=== PATIENT | female | born 1950 | race Caucasian/White ===

== ENCOUNTER → 2016-04-18 | Outpatient (CLI) | payer MEDICARE ==
--- NOTE | 2016-04-18 14:39 | MR ---
EXAMINATION TYPE: MR angio head wo con DATE OF EXAM: 04/18/2016 10:57 AM COMPARISON: NONE HISTORY: Headaches TECHNIQUE: Time of flight images focusing on the [place] were performed without contrast. FINDINGS: Distal vertebral arteries visualized normal. The basilar artery is unremarkable. Posterior cerebral vasculature appears normal. The internal carotid arteries bifurcate normally into A1 and M1 segments. Ophthalmic arteries appear unremarkable. A posterior left communicating artery is present. An infundibulum appears to be present , normal variant. Tiny right posterior communicating artery is not excluded. The middle cerebral eddi ry branches appear normal. A1 segments are normal. The anterior communicating artery appears to be pa tent. A 2 segments are unremarkable. Middle cerebral artery branches are unremarkable. No aneurysmal dilatation is evident. No suspicious vascular malformation is evident. IMPRESSION: 1. MRA [place] of [place] appears within normal limits.
== END | disposition home or self-care (01) ==
LOC: RADMRIMAIN 10:35
PROVIDERS: ATTEND Psychiatry & Neurology Neurology
DX: R51 Headache (principal)
CPT/HCPCS: 70544

== ENCOUNTER → 2016-04-18 | Outpatient (CLI) | payer MEDICARE ==
[2016-04-18 12:01] LABS: C Reactive Protein <5.0 mg/L (<10.0); Creatine Kinase 184 U/L (30-135)
== END | disposition home or self-care (01) ==
LOC: LABWHC1 11:07
PROVIDERS: ATTEND Psychiatry & Neurology Neurology
DX: A69.20 Lyme disease, unspecified (principal); G35 Multiple sclerosis; M62.838 Other muscle spasm
CPT/HCPCS: 36415; 70544; 82550; 85652; 86140

== ENCOUNTER 2016-06-15 10:30 | Emergency (ER) | payer MEDICARE ==
[2016-06-15 10:38] VITALS: TEMP 96.8
[2016-06-15] MEDS ORDERED: SODIUM CHLORIDE 0.9% 1,000 ML IV STA (10:47)
[2016-06-15] MEDS ORDERED: KETOROLAC 60 MG/2 ML VIAL IVP STA (10:47)
[2016-06-15] MEDS ORDERED: ONDANSETRON 4 MG/2 ML VIAL IVP STA (10:48)
--- NOTE | 2016-06-15 10:51 | ED ---
General Adult HPI - General Chief complaint: Syncope Stated complaint: SYNCOPE, ALTERED Time Seen by Provider: 06/15/16 10:30 Source: patient, RN notes reviewed Mode of arrival: wheelchair Limitations: no limitations - History of Present Illness Initial comments: This is a 66-year-old female with past medical history significant for MS and a case of Lyme disease last year which she was treated for. Patient states last night she was sitting on a couch felt she was given a passout. She called her her walked in the room and she was unconscious but it only lasted a few seconds patient came to was very nauseated went to the bathroom and vomited. Patient went to bed at that time. Patient states she woke up in the middle of night with a headache which progressively gotten worse since then. Patient states this morning she continues to be nauseated and is having diarrhea currently. Patient states her joints ache but she is not having any chest pain difficulty breathing or shortness of breath per patient denies any abdominal pain patient denies any back pain. Patient denies any dysuria hematuria urinary frequency. Patient states she has not had a fever or chills. Patient denies any numbness or weakness patient denies currently any lightheadedness or dizziness. - Related Data Home Medications Medication Instructions Recorded Confirmed Baclofen [Lioresal] 10 mg PO TID 06/15/16 06/15/16 Doxycycline Hyclate 100 mg PO DAILY 06/15/16 06/15/16 Gabapentin [Neurontin] 100 mg PO TID 06/15/16 06/15/16 Glatiramer Acetate [Copaxone] 40 mg SQ MOWEFR 06/15/16 06/15/16 Simvastatin [Zocor] 20 mg PO HS 06/15/16 06/15/16 Venlafaxine HCl ER [Effexor XR] 75 mg PO DAILY 06/15/16 06/15/16 amLODIPine BESYLATE [Norvasc] 2.5 mg PO DAILY PRN 06/15/16 06/15/16 Allergies Allergy/AdvReac Type Severity Reaction Status Date / Time No Known Allergies Allergy Verified 06/15/16 12:34 Review of Systems ROS Statement: Those systems with pertinent positive or pertinent negative responses have been documented in the HPI. ROS Other: All systems not noted in ROS Statement are negative. Past Medical History Additional Past Medical History / Comment(s): lyme disease, ms History of Any Multi-Drug Resistant Organisms: None Reported Past Surgical History: No Surgical Hx Reported Past Psychological History: Depression Smoking Status: Current every day smoker Past Alcohol Use History: None Reported Past Drug Use History: None Reported General Exam - General Exam Comments Initial Comments: GENERAL: Patient is well-developed and well-nourished. Patient is nontoxic and well- hydrated and is in mild distress. ENT: Neck is soft and supple. No significant lymphadenopathy is noted. Oropharynx is clear. Moist mucous membranes. Neck has full range of motion without eliciting any pain. EYES: The sclera were anicteric and conjunctiva were pink and moist. Extraocular movements were intact and pupils were equal round and reactive to light. Eyelids were unremarkable. PULMONARY: Unlabored respirations. Good breath sounds bilaterally. No audible rales rhonchi or wheezing was noted. CARDIOVASCULAR: There is a regular rate and rhythm without any murmurs gallops or rubs. ABDOMEN: Soft and nontender with normal bowel sounds. No palpable organomegaly was noted. There is no palpable pulsatile mass. SKIN: Skin is clear with no lesions or rashes and otherwise unremarkable. NEUROLOGIC: Patient is alert and oriented x3. Cranial nerves II through XII are grossly intact. Motor and sensory are also intact. Normal speech, volume and content. Symmetrical smile. MUSCULOSKELETAL: Normal extremities with adequate strength and full range of motion. No lower extremity swelling or edema. No calf tenderness. LYMPHATICS: No significant lymphadenopathy is noted PSYCHIATRIC: Normal psychiatric evaluation. Normal interpersonal interactions appears functionally intact in deals appropriately with others. No signs of depression. No signs of anxiety. N Limitations: no limitations Course Vital Signs 06/15/16 06/15/16 10:33 11:38 Temperature 96.8 F L Pulse Rate 81 71 Respiratory 20 14 Rate Blood Pressure 130/58 136/63 O2 Sat by Pulse 99 97 Oximetry Medical Decision Making - Medical Decision Making EKG shows normal sinus rhythm at 73 bpm IN interval is 154 QRS is 80 QT interval is 394 QTC is 434. Patient's EKG shows no ST segment elevation or depression or T wave abnormalities are noted. One pack and reevaluate the patient she stated her headache was still there but much improved. Patient states she no longer was nauseated and has not had any diarrhea while in the emergency department. Patient received a liter of fluid while in the emergency department. - Lab Data Result diagrams: 06/15/16 11:00 06/15/16 11:00 Lab Results 06/15/16 06/15/16 06/15/16 Range/Units 11:00 11:00 11:00 WBC 9.0 (3.8-10.6) k/uL RBC 4.07 (3.80-5.40) m/uL Hgb 13.4 (11.4-16.0) gm/dL Hct 39.9 (34.0-46.0) % MCV 98.0 (80.0-100.0) fL MCH 32.9 (25.0-35.0) pg MCHC 33.5 (31.0-37.0) g/dL RDW 12.7 (11.5-15.5) % Plt Count 310 (150-450) k/uL Neutrophils % 77 % Lymphocytes % 13 % Monocytes % 6 % Eosinophils % 1 % Basophils % 1 % Neutrophils # 6.9 (1.3-7.7) k/uL Lymphocytes # 1.2 (1.0-4.8) k/uL Monocytes # 0.5 (0-1.0) k/uL Eosinophils # 0.1 (0-0.7) k/uL Basophils # 0.1 (0-0.2) k/uL PT (9.0-12.0) sec INR (<1.1) APTT (22.0-30.0) sec Sodium 142 (137-145) mmol/L Potassium 4.8 (3.5-5.1) mmol/L Chloride 104 (98-107) mmol/L Carbon Dioxide 28 (22-30) mmol/L Anion Gap 10 mmol/L BUN 13 (7-17) mg/dL Creatinine 0.90 (0.52-1.04) mg/dL Est GFR (MDRD) Af Amer >60 (>60 ml/min/1.73 sqM) Est GFR (MDRD) Non-Af >60 (>60 ml/min/1.73 sqM) Glucose 102 H (74-99) mg/dL Calcium 10.0 (8.4-10.2) mg/dL Magnesium 2.2 (1.6-2.3) mg/dL Total Bilirubin 0.6 (0.2-1.3) mg/dL AST 41 H (14-36) U/L ALT 35 (9-52) U/L Alkaline Phosphatase 87 (38-126) U/L Total Creatine Kinase 175 H (30-135) U/L CK-MB (CK-2) 1.3 (0.0-2.4) ng/mL CK-MB (CK-2) Rel Index 0.7 Troponin I <0.012 (0.000-0.034) ng/mL Total Protein 7.8 (6.3-8.2) g/dL Albumin 4.6 (3.5-5.0) g/dL Amylase 58 (30-110) U/L Lipase 81 (23-300) U/L 06/15/16 Range/Units 11:00 WBC (3.8-10.6) k/uL RBC (3.80-5.40) m/uL Hgb (11.4-16.0) gm/dL Hct (34.0-46.0) % MCV (80.0-100.0) fL MCH (25.0-35.0) pg MCHC (31.0-37.0) g/dL RDW (11.5-15.5) % Plt Count (150-450) k/uL Neutrophils % % Lymphocytes % % Monocytes % % Eosinophils % % Basophils % % Neutrophils # (1.3-7.7) k/uL Lymphocytes # (1.0-4.8) k/uL Monocytes # (0-1.0) k/uL Eosinophils # (0-0.7) k/uL Basophils # (0-0.2) k/uL PT 11.1 (9.0-12.0) sec INR 1.1 (<1.1) APTT 24.3 (22.0-30.0) sec Sodium (137-145) mmol/L Potassium (3.5-5.1) mmol/L Chloride (98-107) mmol/L Carbon Dioxide (22-30) mmol/L Anion Gap mmol/L BUN (7-17) mg/dL Creatinine (0.52-1.04) mg/dL Est GFR (MDRD) Af Amer (>60 ml/min/1.73 sqM) Est GFR (MDRD) Non-Af (>60 ml/min/1.73 sqM) Glucose (74-99) mg/dL Calcium (8.4-10.2) mg/dL Magnesium (1.6-2.3) mg/dL Total Bilirubin (0.2-1.3) mg/dL AST (14-36) U/L ALT (9-52) U/L Alkaline Phosphatase (38-126) U/L Total Creatine Kinase (30-135) U/L CK-MB (CK-2) (0.0-2.4) ng/mL CK-MB (CK-2) Rel Index Troponin I (0.000-0.034) ng/mL Total Protein (6.3-8.2) g/dL Albumin (3.5-5.0) g/dL Amylase (30-110) U/L Lipase (23-300) U/L Disposition Clinical Impression: Gastroenteritis Disposition: HOME SELF-CARE Condition: Good Instructions: Gastroenteritis (ED) Referrals: Reyna Browning DO [Primary Care Provider] - 1-2 days Time of Disposition: 13:01
[2016-06-15 11:26] LABS: Basophils # (A) 0.1 k/uL (0-0.2); Basophils % (A) 1 %; CH 32.8; CHCM 33.6; Eosinophils # (A) 0.1 k/uL (0-0.7); Eosinophils % (A) 1 %; HCT 39.9 % (34.0-46.0); HDW 2.28; HGB 13.4 gm/dL (11.4-16.0); Luc % (Auto) 2; Lymphocytes # (A) 1.2 k/uL (1.0-4.8); Lymphocytes % (A) 13 %; MCH 32.9 pg (25.0-35.0); MCHC 33.5 g/dL (31.0-37.0); Monocytes # (A) 0.5 k/uL (0-1.0); Monocytes % (A) 6 %; Neutrophils # (A) 6.9 k/uL (1.3-7.7); Neutrophils % (A) 77 %; RBC 4.07 m/uL (3.80-5.40); RDW 12.7 % (11.5-15.5); WBC (Perox) 9.25
[2016-06-15 11:36] LABS: INR 1.1 (<1.1); Partial Thromboplastin Time 24.3 sec (22.0-30.0); Prothrombin Time 11.1 sec (9.0-12.0)
--- NOTE | 2016-06-15 11:40 | CT ---
EXAMINATION TYPE: CT brain wo con DATE OF EXAM: 06/15/2016 11:35 AM COMPARISON: MRA brain 04/18/2016 INDICATION: Syncope DLP: 956 mGycm, Automated exposure control for dose reduction was used. CONTRAST: None CT of the brain is performed utilizing 3 mm thick sections through the posterior fossa and 3 mm thick sections through the remaining calvarium. Study is performed within 24 hours of arrival to the hosp [facility]. No abnormal hyperdensity is present to suggest an acute intracranial hemorrhage. No mass lesion is evident. No acute infarcts are evident. Ventricles and sulci are appropriate for the patient age. Paranasal sinuses and mastoid air cells within the [id number] are clear. IMPRESSIONS: 1. No acute intracranial changes.
[2016-06-15 11:41] LABS: ALT 35 U/L (9-52); AST 41 U/L (14-36); Alkaline Phosphatase 87 U/L (38-126); Amylase 58 U/L (30-110); Anion Gap 10 mmol/L; Blood Urea Nitrogen 13 mg/dL (7-17); Carbon Dioxide 28 mmol/L (22-30); Chloride 104 mmol/L (98-107); Glucose 102 mg/dL (74-99); Magnesium 2.2 mg/dL (1.6-2.3); Non-African American GFR(MDRD) >60 (>60 ml/min/1.73 sqM); Potassium 4.8 mmol/L (3.5-5.1); Sodium 142 mmol/L (137-145); Total Bilirubin 0.6 mg/dL (0.2-1.3); Total Protein 7.8 g/dL (6.3-8.2)
[2016-06-15 11:46] LABS: Creatine Kinase 175 U/L (30-135)
[2016-06-15 11:57] VITALS: RESP 14
[2016-06-15 11:59] LABS: Creatine Kinase MB 1.3 ng/mL (0.0-2.4); Troponin I <0.012 ng/mL (0.000-0.034)
--- NOTE | 2016-06-15 12:44 | XR ---
EXAMINATION TYPE: XR chest 2V DATE OF EXAM: 06/15/2016 11:44 AM COMPARISON: EXAMINATION TYPE: XR chest 2V DATE OF EXAM: 06/15/2016 11:44 AM COMPARISON: NONE INDICATION: Chest pain nausea TECHNIQUE: Frontal and lateral views of the chest are obtained. FINDINGS: The heart size is normal. The pulmonary vasculature is normal. The lungs are clear. IMPRESSION: 1. No acute pulmonary process. INDICATION: TECHNIQUE: Single frontal view of the chest is obtained. FINDINGS: The heart size is normal. The pulmonary vasculature is normal. The lungs are clear.
[2016-06-15] MEDS ORDERED: ONDANSETRON 4 MG ODT STARTER PACK 2 TAB BTL PO STA (13:01)
[2016-06-15 13:15] VITALS: BP 142/84; PULSE 82
== END 2016-06-15 13:17 | disposition home or self-care (01) ==
LOC: EC 10:30
DX: K52.9 Noninfective gastroenteritis and colitis, unspecified (principal); R55 Syncope and collapse; R51 Headache; G35 Multiple sclerosis; F32.9 Major depressive disorder, single episode, unspecified; F17.200 Nicotine dependence, unspecified, uncomplicated; Z79.899 Other long term (current) drug therapy
CPT/HCPCS: 36415; 93005; 80053; 82150; 82550; 82553; 83690; 83735; 84484; 85025; 85610; 85730; 71020; 70450; 99284; 96374; 96375; 96361; J2405; J1885; S0119

== ENCOUNTER → 2016-08-30 | Outpatient (CLI) | payer MEDICARE ==
[2016-08-30 10:48] LABS: Blood Urea Nitrogen 13 mg/dL (7-17); Non-African American GFR(MDRD) >60 (>60 ml/min/1.73 sqM)
== END | disposition home or self-care (01) ==
LOC: LABWHC1 09:51
PROVIDERS: ATTEND Physical Medicine & Rehabilitation
DX: M54.17 Radiculopathy, lumbosacral region (principal); M54.5 Low back pain
CPT/HCPCS: 36415; 82565; 84520

== ENCOUNTER → 2016-09-05 | Outpatient (CLI) | payer MEDICARE ==
[2016-09-05 16:59] LABS: Basophils # (A) 0.1 k/uL (0-0.2); Basophils % (A) 1 %; CH 32.6; CHCM 32.9; Eosinophils # (A) 0.2 k/uL (0-0.7); Eosinophils % (A) 2 %; HCT 39.4 % (34.0-46.0); HDW 2.15; HGB 12.9 gm/dL (11.4-16.0); Luc # (Auto) 0.24; Luc % (Auto) 3; Lymphocytes # (A) 2.6 k/uL (1.0-4.8); Lymphocytes % (A) 28 %; MCH 32.7 pg (25.0-35.0); MCHC 32.8 g/dL (31.0-37.0); MCV 99.7 fL (80.0-100.0); Mean Platelet Volume 7.3; Monocytes # (A) 0.6 k/uL (0-1.0); Monocytes % (A) 7 %; Neutrophils # (A) 5.4 k/uL (1.3-7.7); Neutrophils % (A) 60 %; RBC 3.95 m/uL (3.80-5.40); RDW 12.7 % (11.5-15.5); WBC 9.1 k/uL (3.8-10.6); WBC (Perox) 9.45
[2016-09-05 17:38] LABS: ALT 34 U/L (9-52); AST 42 U/L (14-36); Alkaline Phosphatase 91 U/L (38-126); Anion Gap 10 mmol/L; Blood Urea Nitrogen 13 mg/dL (7-17); Carbon Dioxide 27 mmol/L (22-30); Chloride 104 mmol/L (98-107); Glucose 90 mg/dL (74-99); Non-African American GFR(MDRD) >60 (>60 ml/min/1.73 sqM); Potassium 5.2 mmol/L (3.5-5.1); Sodium 141 mmol/L (137-145); Total Bilirubin 0.3 mg/dL (0.2-1.3); Total Protein 7.6 g/dL (6.3-8.2)
[2016-09-06 07:24] LABS: Mis test requested (Blood) B. burgdorferi IgG/M
== END ==
LOC: LABWHC1 16:18
PROVIDERS: ATTEND Internal Medicine Infectious Disease
DX: A69.20 Lyme disease, unspecified (principal)
CPT/HCPCS: 36415; 80053; 85025; 86617; 86618

== ENCOUNTER → 2016-09-19 | Outpatient (CLI) | payer MEDICARE ==
[2016-09-19 12:17] LABS: ALT 43 U/L (9-52); AST 48 U/L (14-36); Alkaline Phosphatase 92 U/L (38-126); Anion Gap 12 mmol/L; Blood Urea Nitrogen 13 mg/dL (7-17); Calcium 9.9 mg/dL (8.4-10.2); Carbon Dioxide 25 mmol/L (22-30); Chloride 106 mmol/L (98-107); Glucose 96 mg/dL (74-99); Non-African American GFR(MDRD) >60 (>60 ml/min/1.73 sqM); Potassium 5.1 mmol/L (3.5-5.1); Sodium 143 mmol/L (137-145); Total Bilirubin 0.6 mg/dL (0.2-1.3)
[2016-09-24 16:03] LABS: Mis test requested (Blood) Lyme Ab IgG/ IgM IB
== END | disposition home or self-care (01) ==
LOC: LABWHC1 11:04
PROVIDERS: ATTEND Family Medicine
DX: E87.5 Hyperkalemia (principal)
CPT/HCPCS: 36415; 80053; 86617

== ENCOUNTER 2016-10-24 08:49 | Inpatient (IN) | payer MEDICARE ==
[2016-10-24] MEDS ORDERED: ONDANSETRON 4 MG/2 ML VIAL IVP STA (09:07)
[2016-10-24] MEDS ORDERED: SODIUM CHLORIDE 0.9% 1,000 ML IV STA ×2 (09:07)
[2016-10-24] MEDS ORDERED: PANTOPRAZOLE 40 MG/10 ML VIAL IVP STA (09:07)
[2016-10-24] MEDS ORDERED: MAG HYDROX/AL HYDROX/SIMETH 30 ML, HYOSCYAMINE ELIXIR 10 ML, CIMETIDINE HCL 300 MG PO STA ×3 (09:09)
--- NOTE | 2016-10-24 09:12 | ED ---
Abdominal Pain HPI <Senthil Hidalgo - Last Filed: 10/24/16 12:45> - General Source: patient, RN notes reviewed, old records reviewed Mode of arrival: wheelchair Limitations: no limitations <Rosalinda Henao - Last Filed: 10/24/16 23:51> - General Chief Complaint: Abdominal Pain Stated Complaint: abdominal burning/pain Time Seen by Provider: 10/24/16 08:56 - History of Present Illness Initial Comments: This is a pleasant 66 show female presenting to emergency department with chief complaint of diarrhea and burning abdominal pain for the past 2 days. Patient reports that she was diagnosed with Lyme disease and was placed on cefuroxime by Dr. Bowman. Patient reports that she's been taking it for the past 2 weeks. She states that on Friday and Friday she started noticed the diarrhea and the burning pain. Patient reports she feels nauseated and tried to vomit this morning. She reports that she has not been able to relieve anything that she has diffuse diarrhea shortly after. Patient states that she feels very weak. She also has a history of MS. Patient reports that she's had no history of abdominal surgeries. She states that the abdominal pain will occasionally radiate towards her back. Report she's had a C. diff in the past and feels like her diarrhea symptoms are similar to previous diagnosis of C. diff.Patient denies any recent fever, chills, shortness of breath, chest pain, back pain, numbness or tingling, dysuria or hematuria, constipation , headaches or visual changes, or any other current symptoms (Rosalinda Henao) - Related Data Home Medications Medication Instructions Recorded Confirmed Gabapentin [Neurontin] 100 mg PO TID 06/15/16 10/24/16 Glatiramer Acetate [Copaxone] 40 mg SQ MOWEFR 06/15/16 10/24/16 Venlafaxine HCl ER [Effexor XR] 75 mg PO DAILY 06/15/16 10/24/16 Allergies Allergy/AdvReac Type Severity Reaction Status Date / Time cefuroxime AdvReac Diarrhea Verified 10/24/16 09:14 Review of Systems ROS Other: All systems not noted in ROS Statement are negative. <Senthil Hidalgo - Last Filed: 10/24/16 12:45> ROS Other: All systems not noted in ROS Statement are negative. <Rosalinda Henao - Last Filed: 10/24/16 23:51> ROS Statement: Those systems with pertinent positive or pertinent negative responses have been documented in the HPI. Past Medical History Additional Past Medical History / Comment(s): lyme disease, ms History of Any Multi-Drug Resistant Organisms: None Reported Past Surgical History: No Surgical Hx Reported Past Psychological History: Depression Smoking Status: Current every day smoker Past Alcohol Use History: None Reported Past Drug Use History: None Reported <Rosalidna Henao - Last Filed: 10/24/16 23:51> General Exam <Senthil Hidalgo - Last Filed: 10/24/16 12:45> Limitations: no limitations General appearance: alert, in no apparent distress Head exam: Present: atraumatic, normocephalic, normal inspection Eye exam: Present: normal appearance, PERRL, EOMI. Absent: scleral icterus, conjunctival injection, periorbital swelling ENT exam: Present: normal exam, mucous membranes moist Neck exam: Present: normal inspection. Absent: tenderness, meningismus, lymphadenopathy Respiratory exam: Present: normal lung sounds bilaterally. Absent: respiratory distress, wheezes, rales, rhonchi, stridor Cardiovascular Exam: Present: regular rate, normal rhythm, normal heart sounds. Absent: systolic murmur, diastolic murmur, rubs, gallop, clicks GI/Abdominal exam: Present: soft, tenderness (Diffuse lower abdominal tenderness.), normal bowel sounds, other (Patient reports that burning sensation will occasionally radiate towards her back.). Absent: distended, guarding, rebound, rigid Extremities exam: Present: normal inspection, full ROM, normal capillary refill. Absent: tenderness, pedal edema, joint swelling, calf tenderness Back exam: Present: normal inspection, full ROM. Absent: CVA tenderness (R), CVA tenderness (L) Neurological exam: Present: alert, oriented X3, CN II-XII intact Psychiatric exam: Present: normal affect, normal mood Skin exam: Present: warm, dry, intact, normal color. Absent: rash <Rosalinda Henao - Last Filed: 10/24/16 23:51> - General Exam Comments Initial Comments: This is a 66-year-old female. Patient appears fatigued. (Rosalinda Henao) Course <Senthil Hidalgo - Last Filed: 10/24/16 12:45> <Rosalinda Henao - Last Filed: 10/24/16 23:51> Vital Signs 10/24/16 10/24/16 10/24/16 08:53 11:44 13:02 Temperature 98.1 F 98 F 99.2 F Pulse Rate 94 83 89 Respiratory 20 18 14 Rate Blood Pressure 115/59 117/55 100/53 O2 Sat by Pulse 99 100 100 Oximetry - Reevaluation(s) Reevaluation #1: 10/24/16 12:45 Procedure [id number] evaluation the patient did discuss the findings with the patient and family. Patient's abdomen is soft with some tenderness but improved from her original presentation. I did discuss the case with Dr. Alves. Patient will be admitted. (Senthil Hidalgo) Medical Decision Making - Lab Data Result diagrams: 10/24/16 09:02 10/24/16 09:02 <Senthil Hidalgo - Last Filed: 10/24/16 12:45> - Lab Data Result diagrams: 10/24/16 09:02 10/24/16 09:02 - Radiology Data Radiology results: report reviewed <Rosalinda Henao - Last Filed: 10/24/16 23:51> - Medical Decision Making This is a pleasant 66 show female presenting to emergency department with chief complaint of diarrhea and burning abdominal pain for the past 2 days. Patient reports that she was diagnosed with Lyme disease and was placed on cefuroxime by Dr. Bowman. Patient reports that she's been taking it for the past 2 weeks. She states that on Friday and Friday she started noticed the diarrhea and the burning pain. Patient reports she feels nauseated and tried to vomit this morning. She reports that she has not been able to relieve anything that she has diffuse diarrhea shortly after. Patient received IV fluids, and labs are drawn. Currently differential diagnosis is acute exacerbation of C. difficile infection or gastric or duodenal ulcer disease. Patient was given Protonix, GI cocktail, and IV hydration. [place] white count is elevated 20,000. CT abdomen and pelvis was obtained. Evidence of significant pancolitis seen a member next colitis. Currently pending C. diff. Patient is given by mouth Flagyl and IV hydration. Discussed the findings with the patient and Dr. Hidalgo. This time will be admitting the patient for by mouth Flagyl and also started on Levaquin. Anabiotic tracing be depending on stool findings. (Rosalinda Henao) - Lab Data Lab Results 10/24/16 10/24/16 10/24/16 Range/Units 09:02 09:02 09:02 WBC 20.9 H (3.8-10.6) k/uL RBC 4.08 (3.80-5.40) m/uL Hgb 13.5 (11.4-16.0) gm/dL Hct 39.2 (34.0-46.0) % MCV 96.0 (80.0-100.0) fL MCH 33.0 (25.0-35.0) pg MCHC 34.3 (31.0-37.0) g/dL RDW 12.3 (11.5-15.5) % Plt Count 314 (150-450) k/uL Neutrophils % 88 % Lymphocytes % 5 % Monocytes % 6 % Eosinophils % 1 % Basophils % 0 % Neutrophils # 18.5 H (1.3-7.7) k/uL Lymphocytes # 1.0 (1.0-4.8) k/uL Monocytes # 1.1 H (0-1.0) k/uL Eosinophils # 0.2 (0-0.7) k/uL Basophils # 0.0 (0-0.2) k/uL PT 10.5 (9.0-12.0) sec INR 1.0 (<1.1) APTT 24.0 (22.0-30.0) sec Sodium 141 (137-145) mmol/L Potassium 3.9 (3.5-5.1) mmol/L Chloride 106 (98-107) mmol/L Carbon Dioxide 25 (22-30) mmol/L Anion Gap 10 mmol/L BUN 9 (7-17) mg/dL Creatinine 0.78 (0.52-1.04) mg/dL Est GFR (MDRD) Af Amer >60 (>60 ml/min/1.73 sqM) Est GFR (MDRD) Non-Af >60 (>60 ml/min/1.73 sqM) Glucose 108 H (74-99) mg/dL Plasma Lactic Acid [place] (0.7-2.0) mmol/L Calcium 9.2 (8.4-10.2) mg/dL Total Bilirubin 0.6 (0.2-1.3) mg/dL AST 36 (14-36) U/L ALT 39 (9-52) U/L Alkaline Phosphatase 98 (38-126) U/L Total Protein 7.0 (6.3-8.2) g/dL Albumin 4.2 (3.5-5.0) g/dL Amylase <30 L (30-110) U/L Lipase 48 (23-300) U/L Urine Color Urine Appearance (Clear) Urine pH (5.0-8.0) Ur Specific [place] (1.001-1.035) Urine Protein (Negative) Urine Glucose (UA) (Negative) Urine Ketones (Negative) Urine Blood (Negative) Urine Nitrite (Negative) Urine Bilirubin (Negative) Urine Urobilinogen (<2.0) mg/dL Ur Leukocyte Esterase (Negative) Urine RBC (0-5) /hpf Ur Squamous Epith Cells (0-4) /hpf Urine Mucus (None) /hpf C. difficile (EIA) Intrp (Negative) 10/24/16 10/24/16 10/24/16 Range/Units 09:02 10:38 10:40 WBC (3.8-10.6) k/uL RBC (3.80-5.40) m/uL Hgb (11.4-16.0) gm/dL Hct (34.0-46.0) % MCV (80.0-100.0) fL MCH (25.0-35.0) pg MCHC (31.0-37.0) g/dL RDW (11.5-15.5) % Plt Count (150-450) k/uL Neutrophils % % Lymphocytes % % Monocytes % % Eosinophils % % Basophils % % Neutrophils # (1.3-7.7) k/uL Lymphocytes # (1.0-4.8) k/uL Monocytes # (0-1.0) k/uL Eosinophils # (0-0.7) k/uL Basophils # (0-0.2) k/uL PT (9.0-12.0) sec INR (<1.1) APTT (22.0-30.0) sec Sodium (137-145) mmol/L Potassium (3.5-5.1) mmol/L Chloride (98-107) mmol/L Carbon Dioxide (22-30) mmol/L Anion Gap mmol/L BUN (7-17) mg/dL Creatinine (0.52-1.04) mg/dL Est GFR (MDRD) Af Amer (>60 ml/min/1.73 sqM) Est GFR (MDRD) Non-Af (>60 ml/min/1.73 sqM) Glucose (74-99) mg/dL Plasma Lactic Acid [place] 1.0 (0.7-2.0) mmol/L Calcium (8.4-10.2) mg/dL Total Bilirubin (0.2-1.3) mg/dL AST (14-36) U/L ALT (9-52) U/L Alkaline Phosphatase (38-126) U/L Total Protein (6.3-8.2) g/dL Albumin (3.5-5.0) g/dL Amylase (30-110) U/L Lipase (23-300) U/L Urine Color Yellow Urine Appearance Clear (Clear) Urine pH 6.0 (5.0-8.0) Ur Specific [place] >1.050 H (1.001-1.035) Urine Protein Trace H (Negative) Urine Glucose (UA) Negative (Negative) Urine Ketones Negative (Negative) Urine Blood Moderate H (Negative) Urine Nitrite Negative (Negative) Urine Bilirubin Negative (Negative) Urine Urobilinogen <2.0 (<2.0) mg/dL Ur Leukocyte Esterase Negative (Negative) Urine RBC 47 H (0-5) /hpf Ur Squamous Epith Cells 1 (0-4) /hpf Urine Mucus Rare H (None) /hpf C. difficile (EIA) Intrp Positive A (Negative) - Radiology Data Moderate to severe pancolitis with inflammatory or infectious etiologies the differential including pseudomonas colitis. Moderate circumferential bladder wall thickening. Chronic bladder wall hypertrophy versus cystitis. Small amount of pelvic free fluid likely reactive. (Rosalinda Henao) Disposition <Senthil Hidalgo - Last Filed: 10/24/16 12:45> Time of Disposition: 12:06 <Rosalinda Henao - Last Filed: 10/24/16 23:51> Clinical Impression: Colitis Disposition: ADMITTED IP TO THIS HOSP Condition: Stable
[2016-10-24 09:35] LABS: Basophils % (A) 0 %; CH 32.5; Eosinophils # (A) 0.2 k/uL (0-0.7); Eosinophils % (A) 1 %; HCT 39.2 % (34.0-46.0); HDW 2.25; HGB 13.5 gm/dL (11.4-16.0); Luc # (Auto) 0.16; Luc % (Auto) 1; Lymphocytes % (A) 5 %; MCHC 34.3 g/dL (31.0-37.0); Mean Platelet Volume 7.4; Monocytes # (A) 1.1 k/uL (0-1.0); Monocytes % (A) 6 %; Neutrophils # (A) 18.5 k/uL (1.3-7.7); Neutrophils % (A) 88 %; RBC 4.08 m/uL (3.80-5.40); RDW 12.3 % (11.5-15.5); WBC 20.9 k/uL (3.8-10.6); WBC (Perox) 21.11
--- NOTE | 2016-10-24 09:48 | XR ---
EXAMINATION TYPE: XR KUB DATE OF EXAM: 10/24/2016 COMPARISON: NONE HISTORY: Abdominal pain and diarrhea TECHNIQUE: One view abdominal series FINDINGS: The osseous structures are intact. The bowel gas pattern is nonspecific. Lung bases are clear. Hype rtrophic and degenerative change of the spine. Arthropathy of the hip joints with findings suggestive of chronic acetabular labral tears. IMPRESSION: 1. Nonspecific abdomen.
[2016-10-24 09:56] LABS: ALT 39 U/L (9-52); AST 36 U/L (14-36); Alkaline Phosphatase 98 U/L (38-126); Amylase <30 U/L (30-110); Anion Gap 10 mmol/L; Blood Urea Nitrogen 9 mg/dL (7-17); Calcium 9.2 mg/dL (8.4-10.2); Carbon Dioxide 25 mmol/L (22-30); Chloride 106 mmol/L (98-107); Glucose 108 mg/dL (74-99); Non-African American GFR(MDRD) >60 (>60 ml/min/1.73 sqM); Potassium 3.9 mmol/L (3.5-5.1); Sodium 141 mmol/L (137-145); Total Bilirubin 0.6 mg/dL (0.2-1.3)
[2016-10-24 09:57] LABS: Prothrombin Time 10.5 sec (9.0-12.0)
[2016-10-24] MEDS ORDERED: RX INFO: IV CONTRAST WAS GIVEN 1 EACH MISC MISCELLANE PRN (10:23)
--- NOTE | 2016-10-24 11:16 | CT ---
EXAMINATION TYPE: CT abdomen pelvis w con DATE OF EXAM: 10/24/2016 COMPARISON: 08/30/2009 HISTORY: 66-year-old female with pelvic pain and diarrhea TECHNIQUE: Contiguous axial scanning of the abdomen and pelvis following administration of 100 ml Omn ipaque 300 IV contrast. Delayed images through the kidneys and coronal/sagittal reconstructions perf ormed. CT DLP: 371.3 mGycm Automated exposure control for dose reduction was used. FINDINGS: The heart is normal size without pericardial effusion. Some strandy atelectasis at the peripheral lef t base. No pleural effusion. No focal liver lesion or biliary ductal dilatation. Portal venous system is patent. Gallbladder, adrenal glands, kidneys, spleen, and pancreas show no gross abnormality. Prominent fluid-filled small bowel loops within the lower abdomen and pelvis. There is moderate to se rosmery brunson colonic edematous wall thickening and mucosal hyperemia. No dilated small bowel or free air. No mesenteric or retroperitoneal lymphadenopathy seen. Moderate circumferential bladder wall thickening. Uterus is visualized. Ovaries not clearly delineate d. Large paraovarian varices. Small amount of pelvic free fluid. Pelvic phleboliths. Bones: Degenerative changes at the hips and within the lower lumbar spine. No osseous destructive pro cess. IMPRESSION: 1. MODERATE TO SEVERE PANCOLITIS WITH INFLAMMATORY OR INFECTIOUS ETIOLOGIES IN THE DIFFERENTIAL INCLU DING PSEUDOMEMBRANOUS COLITIS. 2. MODERATE CIRCUMFERENTIAL BLADDER WALL THICKENING, CHRONIC BLADDER WALL HYPERTROPHY VERSUS CYSTITIS . CLINICALLY CORRELATE. 3. SMALL AMOUNT OF PELVIC FREE FLUID LIKELY REACTIVE.
[2016-10-24] MEDS ORDERED: metroNIDAZOLE 500 MG TAB PO STA (11:24)
[2016-10-24] MEDS ORDERED: LEVOFLOXACIN 750MG-D5W PMX 750 MG in DEXTROSE/WATER 1 150ML.BAG IVPB STA (11:25)
[2016-10-24] MEDS ORDERED: HYDROmorphone 1 MG/ML 1 ML SYRINGE IV PRN (12:06)
[2016-10-24] MEDS ORDERED: NALOXONE 0.4 MG/ML 1 ML VIAL IV PRN (12:06)
--- NOTE | 2016-10-24 13:31 | P.HPIM ---
History of Present Illness H&P Date: 10/24/16 Chief Complaint: Abdominal pain with diarrhea 2 days This is a 66-year-old female, patient of Dr. Huston. She has a known past medical history of C. diff colitis, multiple sclerosis and nicotine dependence. Patient presents to the emergency room with complaints of burning sensation in the abdomen with diarrhea 2 days. Patient has had multiple loose stools. She reports she's having diarrhea almost every half hour. Patient has had a decrease in appetite. She reports anything that she eats goes right through her. Patient also has been under treatment for Lyme disease with Ceftin that was ordered by Dr. Bowman. Patient has been taking the Ceftin for about 2 weeks. Patient notices that she was not feeling well on Friday and stopped taking the Ceftin. They notified Dr. Bowman. And he agreed that the Ceftin needed to be discontinued. On admission her white count is 20.9 computed tomography scan of the abdomen and pelvis shows moderate to severe pancolitis with inflammatory or infectious etiologies the differential includes pseudomembranous colitis. There is also moderate circumferential bladder wall thickening, chronic bladder wall hypertrophy versus cystitis and a small amount of pelvic free fluid likely reactive. Patient was given 1 dose of Levaquin and Flagyl in the emergency room. Stool for C. diff has been ordered as well as other stool studies and urinalysis. Patient does admit to having some blood present in her stools. Stool for occult blood ordered. Last colonoscopy was in January which she reports was normal. Patient admits to feeling somewhat feverish. She denies any chills or sweats. Denies any vomiting. Admits to nausea. Denies any burning with urination. Denies any chest pain or shortness of breath Review of Systems Please refer to HPI otherwise unremarkable Past Medical History Additional Past Medical History / Comment(s): lyme disease, ms History of Any Multi-Drug Resistant Organisms: None Reported Past Surgical History: No Surgical Hx Reported Past Psychological History: Depression Smoking Status: Current every day smoker Past Alcohol Use History: None Reported Past Drug Use History: None Reported Medications and Allergies Home Medications Medication Instructions Recorded Confirmed Type Gabapentin [Neurontin] 100 mg PO TID 06/15/16 10/24/16 History Glatiramer Acetate [Copaxone] 40 mg SQ MOWEFR 06/15/16 10/24/16 History Venlafaxine HCl ER [Effexor XR] 75 mg PO DAILY 06/15/16 10/24/16 History Allergies Allergy/AdvReac Type Severity Reaction Status Date / Time cefuroxime AdvReac Diarrhea Verified 10/24/16 09:14 Physical Exam Vitals: Vital Signs Temp Pulse Resp BP Pulse Ox 10/24/16 13:02 99.2 F 89 14 100/53 100 10/24/16 11:44 98 F 83 18 117/55 100 10/24/16 08:53 98.1 F 94 20 115/59 99 Intake and Output 10/23/16 10/24/16 10/24/16 22:59 06:59 14:59 Other: Weight 56.699 kg Patient Weight 10/25/16 06:59 Weight 56.699 kg Head normocephalic Neck supple Lungs clear to auscultation bilaterally no wheezing or crackles Heart regular rate and rhythm S1-S2, no rub or gallop Abdomen is soft nontender nondistended positive bowel sounds no hepatosplenomegaly Extremities no edema Neuro alert and orientated to 3 Results CBC & Chem 7: 10/24/16 09:02 10/24/16 09:02 Labs: Abnormal Lab Results - Last 24 Hours (Table) 10/24/16 10/24/16 Range/Units 09:02 09:02 WBC 20.9 H (3.8-10.6) k/uL Neutrophils # 18.5 H (1.3-7.7) k/uL Monocytes # 1.1 H (0-1.0) k/uL Glucose 108 H (74-99) mg/dL Amylase <30 L (30-110) U/L Assessment and Plan Plan: 1. Diarrhea with abdominal discomfort and CAT scan showing moderate to severe pancolitis: Patient did receive 1 dose of IV Levaquin and Flagyl in the emergency room. Awaiting stool study results. Patient was recently on Ceftin which was discontinued on Friday she is being treated for Lyme disease 2. Rectal bleeding likely related to the diarrhea and colitis. Check stool for occult blood. Continue to monitor hemoglobin. Hemoglobin on admission stable at 13.5 3. Lyme disease has been under treatment by Dr. Bowman. Had been on Ceftin for 2 weeks. Ceftin discontinued on Friday due to GI symptoms 4. History of multiple sclerosis 5. Nicotine dependence: Discussed smoking cessation greater than 3 minutes. Add nicotine patch 6. GI prophylaxis Protonix and DVT prophylaxis SCDs Time with Patient: Greater than 30 (Greater than 50% of the total time spent in counseling and coordination of care.I performed an examination of the patient and discussed their management with the physician Geography Instructor. I have reviewed the Physician Geography Instructor's notes and agree with the documented findings and plan of care)
[2016-10-24 13:44] LABS: Appearance,Urine Clear (Clear); Bilirubin,Urine Negative (Negative); Glucose,Urine (UA) Negative (Negative); Ketones,Urine Negative (Negative); Leukocyte Esterase,Urine Negative (Negative); Mucus,Urine Rare /hpf; Nitrite,Urine Negative (Negative); Particle Count 1846; Protein,Urine Trace (Negative); RBC,Urine 47 /hpf (0-5); Squamous Epithelial Cell,Urine 1 /hpf (0-4); UA Billing (MACRO vs. MICRO) MICRO; Urobilinogen,Urine <2.0 mg/dL (<2.0)
[2016-10-24 13:48] LABS: Specific Gravity,Urine >1.050 (1.001-1.035)
[2016-10-24 14:20] VITALS: BMI 21.2
[2016-10-24] MEDS: NICOTINE 21MG/24HR PATCH TRANSDERM SCH (14:22)
[2016-10-24] MEDS: SODIUM CHLORIDE 0.9% 1,000 ML IV SCH ×2 (14:23→20:35)
[2016-10-24] MEDS: CHERRY FLAVOR 60 ML BOTTLE PO SCH ×3 (17:02→23:16)
[2016-10-24] MEDS: VANCOMYCIN ORAL SOLUTION 250 MG/5 ML BOTTLE PO SCH ×3 (17:02→23:17)
[2016-10-24] MEDS: GABAPENTIN 100 MG CAP PO SCH ×2 (17:03→21:14)
[2016-10-24] MEDS: ONDANSETRON 4 MG/2 ML VIAL IVP PRN (17:07)
[2016-10-24 22:57] VITALS: RESP 16
[2016-10-25] MEDS: ONDANSETRON 4 MG/2 ML VIAL IVP PRN ×2 (01:14→08:40)
[2016-10-25] MEDS: VANCOMYCIN ORAL SOLUTION 250 MG/5 ML BOTTLE PO SCH ×2 (05:25→12:56)
[2016-10-25] MEDS: CHERRY FLAVOR 60 ML BOTTLE PO SCH ×2 (05:25→12:57)
[2016-10-25] MEDS: SODIUM CHLORIDE 0.9% 1,000 ML IV SCH ×2 (05:25→12:58)
[2016-10-25 07:27] VITALS: BP 99/55; PULSE 81; TEMP 99.2
[2016-10-25 08:07] LABS: Basophils # (A) 0.1 k/uL (0-0.2); Basophils % (A) 1 %; CH 32.1; CHCM 33.3; Eosinophils # (A) 0.1 k/uL (0-0.7); Eosinophils % (A) 1 %; HCT 33.3 % (34.0-46.0); HGB 10.8 gm/dL (11.4-16.0); Luc % (Auto) 3; Lymphocytes # (A) 1.2 k/uL (1.0-4.8); Lymphocytes % (A) 12 %; MCH 31.3 pg (25.0-35.0); MCHC 32.3 g/dL (31.0-37.0); MCV 96.9 fL (80.0-100.0); Mean Platelet Volume 7.3; Monocytes # (A) 1.3 k/uL (0-1.0); Monocytes % (A) 12 %; Neutrophils # (A) 7.6 k/uL (1.3-7.7); Neutrophils % (A) 72 %; RBC 3.44 m/uL (3.80-5.40); RDW 12.4 % (11.5-15.5); WBC 10.6 k/uL (3.8-10.6); WBC (Perox) 11.04
[2016-10-25 08:16] LABS: ALT 32 U/L (9-52); AST 28 U/L (14-36); Alkaline Phosphatase 77 U/L (38-126); Anion Gap 6 mmol/L; Blood Urea Nitrogen 4 mg/dL (7-17); Calcium 8.3 mg/dL (8.4-10.2); Carbon Dioxide 25 mmol/L (22-30); Chloride 109 mmol/L (98-107); Glucose 90 mg/dL (74-99); Non-African American GFR(MDRD) >60 (>60 ml/min/1.73 sqM); Potassium 3.7 mmol/L (3.5-5.1); Sodium 140 mmol/L (137-145); Total Bilirubin 0.2 mg/dL (0.2-1.3); Total Protein 5.3 g/dL (6.3-8.2)
[2016-10-25] MEDS: GABAPENTIN 100 MG CAP PO SCH (08:38)
[2016-10-25] MEDS: NICOTINE 21MG/24HR PATCH TRANSDERM SCH (08:38)
[2016-10-25] MEDS ORDERED: NON-FORMULARY DRUG (Glatiramer Acetate [Copaxone] 40 MG) SQ SCH (09:00)
[2016-10-25] MEDS ORDERED: PANTOPRAZOLE 40 MG/10 ML VIAL IVP SCH (09:00)
[2016-10-25] MEDS ORDERED: VENLAFAXINE HCL ER 75 MG CAP PO SCH (09:00)
--- NOTE | 2016-10-25 13:47 | P.DS ---
Providers Date of admission: 10/24/16 12:51 Expected date of discharge: 10/25/16 Attending physician: Heaven Alves Consults: 10/24/16 14:05 Consult Physician Routine Consulting Provider: Cody De Leon Consult Reason/Comments: c.diff Do you want consulting provider notified?: Yes Primary care physician: Nancy Huston [facility] Course: Diagnoses on discharge : 1. Diarrhea with abdominal discomfort and CAT scan showing moderate to severe pancolitis: Patient did receive 1 dose of IV Levaquin and Flagyl in the emergency room. Subsequently stools check for C Diff was positive, she was given oral Vancomycin 250 mg every 6 hours, diarrhea improved. On 10/25/2016 patient only had 1 bowel movement through the afternoon she wanted to go home she was discharged home and was given a prescription for vancomycin oral 250 mg every 6 hours for 15 days she was also given Questran 4 mg twice daily for 5 days. During this admission patient was seen by Dr. De Leon was covering for Dr. Bowman infectious disease. 2. Rectal bleeding likely related to the diarrhea and colitis. Check stool for occult blood. Continue to monitor hemoglobin. Hemoglobin on admission stable at 13.5 hemoglobin at the time of discharge was 10.8 however patient did not have any further rectal bleeding. CBC should be checked within few days post discharge 3. Lyme disease has been under treatment by Dr. Bowman. Had been on Ceftin for 2 weeks. Ceftin discontinued on Friday due to GI symptoms, follow up with Dr Bowman within one week post discharge 4. History of multiple sclerosis, continue current management 5. Nicotine dependence: Discussed smoking cessation greater than 10 minutes. Add nicotine patch, given prescription Hospital course: Patient is a 66-year-old female, patient of Dr. Huston. She has a known past medical history of C. diff colitis, multiple sclerosis and nicotine dependence. Patient presents to the emergency room with complaints of burning sensation in the abdomen with diarrhea 2 days. Patient has had multiple loose stools. She reports she's having diarrhea almost every half hour. Patient has had a decrease in appetite. She reports anything that she eats goes right through her. Patient also has been under treatment for Lyme disease with Ceftin that was ordered by Dr. Bowman. Patient has been taking the Ceftin for about 2 weeks. Patient notices that she was not feeling well on Friday and stopped taking the Ceftin. They notified Dr. Bowman. And he agreed that the Ceftin needed to be discontinued. On admission her white count is 20.9 computed tomography scan of the abdomen and pelvis shows moderate to severe pancolitis with inflammatory or infectious etiologies the differential includes pseudomembranous colitis. There is also moderate circumferential bladder wall thickening, chronic bladder wall hypertrophy versus cystitis and a small amount of pelvic free fluid likely reactive. Patient was given 1 dose of Levaquin and Flagyl in the emergency room. Stool for C. diff has been ordered as well as other stool studies and urinalysis. Patient does admit to having some blood present in her stools. Stool for occult blood ordered. Last colonoscopy was in January which she reports was normal. Patient admits to feeling somewhat feverish. Follow-up with Dr. Huston within 1 week check CBC Follow-up with Dr. Bowman within 1 week Patient Condition at Discharge: Stable Plan - Discharge Summary New Discharge Prescriptions: New Cholestyramine (with Sugar) [Questran] 4 gm PO BID #10 packet Nicotine 21Mg/24Hr Patch [Habitrol] 1 patch TRANSDERM DAILY patch Vancomycin Oral Solution 250 mg PO Q6HR bottle Continue Gabapentin [Neurontin] 100 mg PO TID Venlafaxine HCl ER [Effexor XR] 75 mg PO DAILY Glatiramer Acetate [Copaxone] 40 mg SQ MOWEFR Discharge Medication List Gabapentin [Neurontin] 100 mg PO TID 06/15/16 [History] Glatiramer Acetate [Copaxone] 40 mg SQ MOWEFR 06/15/16 [History] Venlafaxine HCl ER [Effexor XR] 75 mg PO DAILY 06/15/16 [History] Cholestyramine (with Sugar) [Questran] 4 gm PO BID #10 packet 10/25/16 [Rx] Nicotine 21Mg/24Hr Patch [Habitrol] 1 patch TRANSDERM DAILY patch 10/25/16 [Rx] Vancomycin Oral Solution 250 mg PO Q6HR bottle 10/25/16 [Rx] Follow up Appointment(s)/Referral(s): Nancy Huston MD [Primary Care Provider] - 1-2 days
--- NOTE | 2016-10-25 16:19 | CONS ---
DATE OF CONSULTATION: 10/25/2016 REASON FOR CONSULTATION: C difficile colitis. HISTORY OF PRESENT ILLNESS: The patient is a 66-year-old female who has a past medical history of significant colitis about 5 years ago. The patient has a history of Lyme disease, previously treated with doxycycline, and the patient was given a new antibiotic by Dr. Bowman about 2 weeks ago; the patient is supposed to take it for 4 weeks. After taking the antibiotic for about 2 weeks, on Friday the patient started having diarrhea with multiple loose stools; she was running to the bathroom every 5 to 10 minutes. The patient did have some crampy lower abdominal pain with intensity of about 6 to 7 out 10 and no radiation. The patient feel nauseated but had no vomiting. The patient had no high-grade fever. With these symptoms, the patient presented to the [facility] ER, where she had a CT of abdomen and pelvis with evidence of brunson colitis. The patient had stool for C difficile which came back positive. She was started on p.o. vancomycin. ID was consulted for further recommendations regarding antibiotic therapy. As of this morning, the patient remains afebrile. No fever has been recorded during this admission. The patient , who did have a white count of 20.9 on 10/24, is down to 10.6 today. The patient did mention that her diarrhea has improved. She had only one loose stool this morning. No further crampy abdominal pain. No nausea or vomiting. She is tolerating a clear liquid diet. She is very insistent on going home. REVIEW OF SYSTEMS: CONSTITUTIONAL: Positive for weakness but no fever. EYES: No complaint. ENT: No complaint. RESPIRATORY: No complaint. CARDIOVASCULAR: No complaint. GENITOURINARY: No complaint. GASTROINTESTINAL: As per HPI. MUSCULOSKELETAL: No complaint. INTEGUMENTARY: No complaint. PSYCHOLOGIC: No complaint. ENDOCRINE: No complaint. NEUROLOGIC: No complaint. Past medical history is significant for: 1. MS. 2. Lyme disease. 3. C difficile colitis. 4. Depression. PAST SURGICAL HISTORY: No major surgery. SOCIAL HISTORY: The patient is currently an everyday smoker. No drinking or any drug use. FAMILY HISTORY: No pertinent findings were noticed. ALLERGIES: CEFUROXIME. Medications current include: 1. Neurontin. 2. Dilaudid. 3. Narcan. 4. Nicotine patch. 5. Suboxone. 6. Zofran. 7. Protonix. 8. Vancomycin 250 q.6 hours. 9. Effexor. On examination, blood pressure is 99/55 with a pulse of 81, temperature 99.2. She is 97% on room air. General description is an elderly female up in the bed in no distress. No tachypnea or accessory muscle of respiration use. HEENT examination shows slight pallor. No scleral icterus. Oral mucous membrane is dry. NECK: Trachea is central. No thyromegaly. LUNGS: Unlabored breathing. Clear to auscultation anteriorly. No wheeze or crackle. HEART: S1, S2. Regular rate and rhythm. No added sound. ABDOMEN: Soft. No guarding. No rigidity. No significant tenderness. EXTREMITIES: No edema of the feet. SKIN EXAMINATION: No rash or mass palpable. Neurologically patient is awake, alert, oriented x3. Mood and affect normal. LABS: Hemoglobin 10.8, white count 10.6. BUN of 4, creatinine 0.79. Stool for C difficile is positive. CT of abdomen and pelvis shows evidence of pancolitis. DIAGNOSTIC IMPRESSION AND PLAN: Patient admitted to hospital with significant diarrhea in a patient with a previous history of Clostridium difficile colitis and recent exposure to antibiotics in the form of Ceftin for her Lyme disease. Likely acute infectious colitis secondary to C difficile colitis with evidence of pancolitis on the CT. Patient has been advised to stay in the hospital for another 24 to 48 hours; however, the patient is insisting on going home. PLAN: 1. Antibiotic in the form of vancomycin 250 p.o. q.6 for at least 2 more weeks. 2. Patient will be given Questran 4 grams twice a day for another 4 to 5 days for symptomatic relief and toxin binding; however, the patient has been told not to take both medications at the same time and to discontinue the Questran if no bowel movement ( ) hours. 3. Patient will follow up with Dr. Bowman in outpatient setting. Patient is known to Dr. Bowman. Plan of care discussed with the primary team. NANCY
[2016-10-26] MEDS ORDERED: PANTOPRAZOLE 40 MG TABLET PO SCH (07:30)
== END 2016-10-25 16:35 | disposition home or self-care (01) | DRG 372 ==
LOC: EC 08:49 → 4MS4W 12:51
PROVIDERS: ADMIT Internal Medicine; ATTEND Internal Medicine
DX: A04.7 Enterocolitis due to Clostridium difficile (principal); A69.20 Lyme disease, unspecified; G35 Multiple sclerosis; F17.200 Nicotine dependence, unspecified, uncomplicated; F32.9 Major depressive disorder, single episode, unspecified; Z79.899 Other long term (current) drug therapy; Z88.8 Allergy status to other drugs, medicaments and biological substances
CPT/HCPCS: 36415; 74000; 74177; 80053; 81001; 82150; 83605; 83690; 85025; 85610; 85730; 87040; 87045; 87046; 87324; 89055

== ENCOUNTER 2016-10-28 10:58 | Emergency (ER) | payer MEDICARE ==
[2016-10-28 11:05] VITALS: BP 158/69; PULSE 83; RESP 17; TEMP 98.1
[2016-10-28] MEDS ORDERED: DIAZEPAM 5 MG/ML 2 ML SYRINGE IM ONE (11:20)
--- NOTE | 2016-10-28 11:28 | ED ---
General Adult HPI - General Chief complaint: Neck Pain/Injury Stated complaint: neck stiffness x 2 days Time Seen by Provider: 10/28/16 11:07 Source: patient, RN notes reviewed Mode of arrival: ambulatory Limitations: no limitations - History of Present Illness Initial comments: 66-year-old female presents with a four-day history of bilateral neck pain and stiffness. Patient states this is worse on her right. She denies any trauma or injury. Patient was recently hospitalized for C. difficile colitis and was sedentary in a hospital bed for several days. Neck pain began around the time of discharge. She has been taking Motrin 803 times a day with minimal relief. Denies fever or chills. Denies headache. Denies any weakness in her upper or lower extremities. Denies any paresthesias. Patient does have history of MS and is still on vancomycin for C. diff. - Related Data Home Medications Medication Instructions Recorded Confirmed Gabapentin [Neurontin] 100 mg PO TID 06/15/16 10/24/16 Glatiramer Acetate [Copaxone] 40 mg SQ MOWEFR 06/15/16 10/24/16 Venlafaxine HCl ER [Effexor XR] 75 mg PO DAILY 06/15/16 10/24/16 Previous Rx's Medication Instructions Recorded Cholestyramine (with Sugar) 4 gm PO BID #10 packet 10/25/16 [Questran] Nicotine 21Mg/24Hr Patch [Habitrol] 1 patch TRANSDERM DAILY patch 10/25/16 Vancomycin Oral Solution 250 mg PO Q6HR bottle 10/25/16 Diazepam [Valium] 5 mg PO BID PRN #12 tab 10/28/16 Allergies Allergy/AdvReac Type Severity Reaction Status Date / Time cefuroxime AdvReac Diarrhea Verified 10/24/16 09:14 Review of Systems ROS Statement: Those systems with pertinent positive or pertinent negative responses have been documented in the HPI. ROS Other: All systems not noted in ROS Statement are negative. ENT: Denies: ear pain Respiratory: Denies: cough Cardiovascular: Denies: chest pain Past Medical History Additional Past Medical History / Comment(s): lyme disease, ms History of Any Multi-Drug Resistant Organisms: None Reported Date of last positivie culture/infection: 10/24/2016 MDRO Source:: Stool Past Surgical History: No Surgical Hx Reported Additional Past Surgical History / Comment(s): Ovarian cyst removal Past Anesthesia/Blood Transfusion Reactions: No Reported Reaction Past Psychological History: Depression Smoking Status: Current every day smoker Past Alcohol Use History: None Reported Past Drug Use History: None Reported General Exam Limitations: no limitations General appearance: alert, in no apparent distress Head exam: Present: atraumatic, normocephalic Eye exam: Present: normal appearance, PERRL. Absent: scleral icterus ENT exam: Present: normal exam, mucous membranes moist Neck exam: Present: tenderness, other (Bilateral tenderness to palpation in the cervical paraspinal muscles, range of motion limited secondary to pain worse on the right.) Respiratory exam: Present: normal lung sounds bilaterally. Absent: respiratory distress Cardiovascular Exam: Present: regular rate, normal rhythm GI/Abdominal exam: Present: soft. Absent: distended, tenderness Extremities exam: Present: normal inspection, normal capillary refill Neurological exam: Present: alert, oriented X3, CN II-XII intact, normal gait. Absent: motor sensory deficit Psychiatric exam: Present: normal affect, normal mood Skin exam: Present: warm, dry Course Vital Signs 10/28/16 11:02 Temperature 98.1 F Pulse Rate 83 Respiratory 17 Rate Blood Pressure 158/69 O2 Sat by Pulse 100 Oximetry Medical Decision Making - Medical Decision Making 60 sexual female presenting with nontraumatic neck pain and stiffness. Patient has no midline tenderness of the cervical spine, neurologic examination is nonfocal, upper extremity strength is 5 out of 5 in symmetric bilaterally. Patient has tenderness to palpation over the bilateral paraspinal muscles. She is currently taking Motrin 803 times daily for pain. She is given a shot of Valium in the emergency department she will be prescribed Valium for muscle spasm. Patient states she has an appointment with her primary care doctor on . She will return to the emergency department with worsening symptoms. Disposition Clinical Impression: Torticollis, Neck muscle spasm Disposition: HOME SELF-CARE Condition: Good Instructions: Muscle Spasm (ED) Prescriptions: Diazepam [Valium] 5 mg PO BID PRN #12 tab PRN Reason: Pain/Discomfort Referrals: Nancy Huston MD [Primary Care Provider] - 1-2 days Time of Disposition: 11:28
== END 2016-10-28 11:41 | disposition home or self-care (01) ==
LOC: EC 10:58
DX: M43.6 Torticollis (principal); M62.838 Other muscle spasm; G35 Multiple sclerosis; F32.9 Major depressive disorder, single episode, unspecified; F17.200 Nicotine dependence, unspecified, uncomplicated; Z88.1 Allergy status to other antibiotic agents; Z79.899 Other long term (current) drug therapy
CPT/HCPCS: 99283; 96372; J3360

== ENCOUNTER → 2017-01-29 | Outpatient (CLI) | payer MEDICARE ==
[2017-01-29 10:07] LABS: Cholesterol 189 mg/dL (<200); HDL Cholesterol 93 mg/dL (40-60)
== END | disposition home or self-care (01) ==
LOC: LABWHC1 09:19
PROVIDERS: ATTEND Psychiatry & Neurology Neurology
DX: E78.00 Pure hypercholesterolemia, unspecified (principal); G35 Multiple sclerosis
CPT/HCPCS: 36415; 80061; 82306

== ENCOUNTER → 2017-05-27 | Outpatient (CLI) | payer MEDICARE ==
--- NOTE | 2017-05-27 15:07 | MR ---
EXAMINATION TYPE: MR cervical spine wo/w con DATE OF EXAM: 05/27/2017 1:37 PM COMPARISON: NONE HISTORY: Cervical disc disease / MS CONTRAST: The patient was injected with 5.5 mL intravenous Gadavist gadolinium contrast. Multiplanar MultiSpin echo imaging of the cervical spine was performed. C2-C3: No evidence for degenerative disc disease. No disc bulge/herniation or protrusion. No Canal stenosis. Foramina are patent bilaterally. C3-C4: No evidence for degenerative disc disease. No disc bulge/herniation or protrusion. No Canal stenosis. Foramina are patent bilaterally. C4-C5: There is mild disc desiccation. Mild posterior disc bulges noted. No herniation or protrusion. No evidence for central stenosis. Mild left foraminal encroachment identified. C5-C6: Moderate disc desiccation. Posterocentral mild disc herniation partial encapsulating spur. Eff acement ventral thecal sac. Mild central stenosis identified. Bilateral foraminal encroachment mild i n degree. C6-C7:No evidence for degenerative disc disease. No disc bulge/herniation or protrusion. No Canal s tenosis. Foramina are patent bilaterally. C7-T1: No evidence for degenerative disc disease. No disc bulge/herniation or protrusion. No Canal stenosis. Foramina are patent bilaterally. No cervical spine fracture. There is normal alignment. Cervical spinal cord is of normal signal. C raniovertebral junction relationships are within normal limits. No pathologic enhancement. IMPRESSION: 1. Degenerative disc disease as discussed greatest at C5-6 where there is posterior central mild disc herniation and mild central stenosis.
== END | disposition home or self-care (01) ==
LOC: RADMRIMAIN 12:18
PROVIDERS: ATTEND Psychiatry & Neurology Neurology
DX: M48.02 Spinal stenosis, cervical region (principal); M50.222 Other cervical disc displacement at C5-C6 level; M50.322 Other cervical disc degeneration at C5-C6 level; Z13.89 Encounter for screening for other disorder
CPT/HCPCS: 82565; 72156; A9581

== ENCOUNTER 2017-06-20 14:19 | Inpatient (IN) | payer MEDICARE ==
[2017-06-20] MEDS ORDERED: MORPHINE SULFATE 4 MG/ML SYRINGE IVP STA ×2 (15:03→17:01)
[2017-06-20] MEDS ORDERED: ONDANSETRON 4 MG/2 ML VIAL IVP STA (15:03)
[2017-06-20] MEDS ORDERED: SODIUM CHLORIDE 0.9% 1,000 ML IV ONE (15:03)
[2017-06-20 15:26] LABS: Basophils # (A) 0.1 k/uL (0-0.2); Basophils % (A) 1 %; Eosinophils # (A) 0.1 k/uL (0-0.7); Eosinophils % (A) 1 %; HCT 35.6 % (34.0-46.0); HGB 11.5 gm/dL (11.4-16.0); Lymphocytes % (A) 13 %; MCH 30.8 pg (25.0-35.0); MCHC 32.4 g/dL (31.0-37.0); MCV 95.1 fL (80.0-100.0); Monocytes % (A) 7 %; Neutrophils # (A) 11.4 k/uL (1.3-7.7); Neutrophils % (A) 78 %; Platelet Count 271 k/uL (150-450); RBC 3.75 m/uL (3.80-5.40); RDW 12.8 % (11.5-15.5); WBC 14.7 k/uL (3.8-10.6)
[2017-06-20] MEDS: SODIUM CHLORIDE 0.9% 1,000 ML IV SCH ×2 (15:28→20:40)
[2017-06-20 15:35] LABS: Appearance,Urine Clear (Clear); Bilirubin,Urine Negative (Negative); Blood,Urine Negative (Negative); Color,Urine Light Yellow; Glucose,Urine (UA) Negative (Negative); Ketones,Urine Negative (Negative); Leukocyte Esterase,Urine Negative (Negative); Nitrite,Urine Negative (Negative); Protein,Urine Negative (Negative); Specific Gravity,Urine 1.004 (1.001-1.035); Urobilinogen,Urine <2.0 mg/dL (<2.0)
[2017-06-20 15:39] LABS: Anion Gap 10 mmol/L; Blood Urea Nitrogen 11 mg/dL (7-17); Calcium 9.1 mg/dL (8.4-10.2); Carbon Dioxide 26 mmol/L (22-30); Chloride 103 mmol/L (98-107); Glucose 85 mg/dL (74-99); Sodium 139 mmol/L (137-145)
[2017-06-20 15:46] LABS: INR 1.1 (<1.2); Partial Thromboplastin Time 22.8 sec (22.0-30.0); Prothrombin Time 10.5 sec (9.0-12.0)
--- NOTE | 2017-06-20 16:19 | ED ---
Fall HPI - General Chief Complaint: Fall Stated Complaint: Fall Time Seen by Provider: 06/20/17 14:50 Source: patient, EMS, RN notes reviewed, old records reviewed Mode of arrival: EMS - History of Present Illness Initial Comments: This patient is a 7-year-old female presents emergency department today chief complaint of falling on the ice and complains of right hip pain. Patient reports that she has no head injury loss consciousness. She does have history of MS. Not any steroids or blood thinners at this time. Patient has had no fever or chills, chest pain or shortness of breath. She denies any upper extremity injuries. Denies any numbness or tingling down the right leg. - Related Data Home Medications Medication Instructions Recorded Confirmed Gabapentin [Neurontin] 100 mg PO TID 06/15/16 06/20/17 Glatiramer Acetate [Copaxone] 40 mg SQ MOWEFR 06/15/16 06/20/17 Venlafaxine HCl ER [Effexor XR] 75 mg PO DAILY 06/15/16 06/20/17 Alpha Lipoic Acid 50 mg PO DAILY 06/20/17 06/20/17 Ascorbic Acid [Vitamin C] 500 mg PO DAILY 06/20/17 06/20/17 Aspirin [Adult Low Dose Aspirin EC] 81 mg PO DAILY 06/20/17 06/20/17 Baclofen [Lioresal] 10 mg PO DAILY 06/20/17 06/20/17 Biotin 5,000 mcg PO BID 06/20/17 06/20/17 Cat's Claw 500 mg PO DAILY 06/20/17 Glucosamine/Chondr Dinh A Sod [Osteo 1 each PO DAILY 06/20/17 06/20/17 Bi-Flex Caplet] Multivit-Min/Iron/Folic/Lutein 1 each PO DAILY 06/20/17 06/20/17 [Centrum Silver Women Tablet] [place]-3 Fatty Acids/Fish Oil [Fish 1 each PO DAILY 06/20/17 06/20/17 Oil 1,000 mg Softgel] Omeprazole 40 mg PO DAILY 06/20/17 06/20/17 Simvastatin [Zocor] 20 mg PO HS 06/20/17 06/20/17 Ubidecarenone [Co Q-10] 100 mg PO DAILY 06/20/17 06/20/17 amLODIPine [Norvasc] 2.5 mg PO DAILY 06/20/17 06/20/17 Allergies Allergy/AdvReac Type Severity Reaction Status Date / Time cefuroxime AdvReac Diarrhea Verified 06/20/17 15:42 Sulfa (Sulfonamide AdvReac Vomiting Verified 06/20/17 15:43 Antibiotics) Review of Systems ROS Statement: Those systems with pertinent positive or pertinent negative responses have been documented in the HPI. ROS Other: All systems not noted in ROS Statement are negative. Past Medical History Additional Past Medical History / Comment(s): lyme disease, ms History of Any Multi-Drug Resistant Organisms: C-DIFF Date of last positivie culture/infection: 10/24/2016 MDRO Source:: Stool Past Surgical History: No Surgical Hx Reported Additional Past Surgical History / Comment(s): Ovarian cyst removal Past Anesthesia/Blood Transfusion Reactions: No Reported Reaction Past Psychological History: Depression Smoking Status: Current every day smoker Past Alcohol Use History: None Reported Past Drug Use History: None Reported General Exam - General Exam Comments Initial Comments: This is a 67-year-old female. No acute distress. Limitations: no limitations General appearance: alert, in no apparent distress Head exam: Present: atraumatic, normocephalic, normal inspection Eye exam: Present: normal appearance, PERRL, EOMI. Absent: scleral icterus, conjunctival injection, periorbital swelling ENT exam: Present: normal exam, mucous membranes moist Neck exam: Present: normal inspection. Absent: tenderness, meningismus, lymphadenopathy Respiratory exam: Present: normal lung sounds bilaterally. Absent: respiratory distress, wheezes, rales, rhonchi, stridor Cardiovascular Exam: Present: regular rate, normal rhythm, normal heart sounds. Absent: systolic murmur, diastolic murmur, rubs, gallop, clicks GI/Abdominal exam: Present: soft, normal bowel sounds. Absent: distended, tenderness, guarding, rebound, rigid Right Hip exam: Present: tenderness (Patient has significant tenderness over the lateral aspect of the hip. His evidence of shortened leg. ), external rotation , shortening. Absent: normal inspection, swelling, abrasion Upper Leg exam: Present: normal inspection, full ROM Knee exam: Present: normal inspection, full ROM Lower Leg exam: Present: normal inspection, full ROM Ankle exam: Present: normal inspection, full ROM Foot/Toe exam: Present: normal inspection, full ROM Gait: observed and normal Back exam: Present: normal inspection Neurological exam: Present: alert, oriented X3, CN II-XII intact Psychiatric exam: Present: normal affect, normal mood Skin exam: Present: warm, dry, intact, normal color. Absent: rash Course Vital Signs 06/20/17 06/20/17 14:32 15:31 Temperature 98 F Pulse Rate 73 79 Respiratory 18 18 Rate Blood Pressure 137/64 142/65 O2 Sat by Pulse 96 97 Oximetry Medical Decision Making - Medical Decision Making This patient is a 67-year-old female presents by his pharmacist a chief complaint of right hip pain after slipping and falling on the ice. Patient has evidence of a shortened right leg with external rotation. Pulses were palpable. Normal sensation distally. X-rays show evidence of a femoral neck fracture with some abnormalities and on the inferior pubic ramus. Chest x-ray was normal. Labwork was reviewed and within normal limits. Patient was given a Johnson catheter for comfort care. Patient will be receiving [place] pain medicine. Discussed with Dr. Yeager who discussed with the admitting orthopedic physician Dr. Alfonso. We will consult medicine as well for management. Patient agrees to admission. - Lab Data Result diagrams: 06/20/17 14:55 06/20/17 14:55 Lab Results 06/20/17 06/20/17 06/20/17 Range/Units 14:55 14:55 14:55 WBC 14.7 H (3.8-10.6) k/uL RBC 3.75 L (3.80-5.40) m/uL Hgb 11.5 (11.4-16.0) gm/dL Hct 35.6 (34.0-46.0) % MCV 95.1 (80.0-100.0) fL MCH 30.8 (25.0-35.0) pg MCHC 32.4 (31.0-37.0) g/dL RDW 12.8 (11.5-15.5) % Plt Count 271 (150-450) k/uL Neutrophils % 78 % Lymphocytes % 13 % Monocytes % 7 % Eosinophils % 1 % Basophils % 1 % Neutrophils # 11.4 H (1.3-7.7) k/uL Lymphocytes # 2.0 (1.0-4.8) k/uL Monocytes # 1.0 (0-1.0) k/uL Eosinophils # 0.1 (0-0.7) k/uL Basophils # 0.1 (0-0.2) k/uL PT 10.5 (9.0-12.0) sec INR 1.1 (<1.2) APTT 22.8 (22.0-30.0) sec Sodium 139 (137-145) mmol/L Potassium 4.0 (3.5-5.1) mmol/L Chloride 103 (98-107) mmol/L Carbon Dioxide 26 (22-30) mmol/L Anion Gap 10 mmol/L BUN 11 (7-17) mg/dL Creatinine 0.76 (0.52-1.04) mg/dL Est GFR (CKD-EPI)AfAm >90 (>60 ml/min/1.73 sqM) Est GFR (CKD-EPI)NonAf 82 (>60 ml/min/1.73 sqM) Glucose 85 (74-99) mg/dL Calcium 9.1 (8.4-10.2) mg/dL Urine Color Urine Appearance (Clear) Urine pH (5.0-8.0) Ur Specific Sacul (1.001-1.035) Urine Protein (Negative) Urine Glucose (UA) (Negative) Urine Ketones (Negative) Urine Blood (Negative) Urine Nitrite (Negative) Urine Bilirubin (Negative) Urine Urobilinogen (<2.0) mg/dL Ur Leukocyte Esterase (Negative) 06/20/17 Range/Units 15:25 WBC (3.8-10.6) k/uL RBC (3.80-5.40) m/uL Hgb (11.4-16.0) gm/dL Hct (34.0-46.0) % MCV (80.0-100.0) fL MCH (25.0-35.0) pg MCHC (31.0-37.0) g/dL RDW (11.5-15.5) % Plt Count (150-450) k/uL Neutrophils % % Lymphocytes % % Monocytes % % Eosinophils % % Basophils % % Neutrophils # (1.3-7.7) k/uL Lymphocytes # (1.0-4.8) k/uL Monocytes # (0-1.0) k/uL Eosinophils # (0-0.7) k/uL Basophils # (0-0.2) k/uL PT (9.0-12.0) sec INR (<1.2) APTT (22.0-30.0) sec Sodium (137-145) mmol/L Potassium (3.5-5.1) mmol/L Chloride (98-107) mmol/L Carbon Dioxide (22-30) mmol/L Anion Gap mmol/L BUN (7-17) mg/dL Creatinine (0.52-1.04) mg/dL Est GFR (CKD-EPI)AfAm (>60 ml/min/1.73 sqM) Est GFR (CKD-EPI)NonAf (>60 ml/min/1.73 sqM) Glucose (74-99) mg/dL Calcium (8.4-10.2) mg/dL Urine Color Light Yellow Urine Appearance Clear (Clear) Urine pH 7.0 (5.0-8.0) Ur Specific Sacul 1.004 (1.001-1.035) Urine Protein Negative (Negative) Urine Glucose (UA) Negative (Negative) Urine Ketones Negative (Negative) Urine Blood Negative (Negative) Urine Nitrite Negative (Negative) Urine Bilirubin Negative (Negative) Urine Urobilinogen <2.0 (<2.0) mg/dL Ur Leukocyte Esterase Negative (Negative) 06/20/17 17:03 Shows normal sinus rhythm, ventricular rate 77 bpm. VT interval 154 ms. QRS ration 78 ms. QT QTc is 46/459 ms. No evidence of ST elevation or T-wave inversion. No acute visual or ventricular arrhythmias. - Radiology Data Radiology results: report reviewed Displaced right femoral neck fracture with comminution. Deformity of the right inferior pubic ramus appears chronic to correlate for remote trauma. One view chest x-ray shows no acute process. Disposition Clinical Impression: Displaced fracture of right femoral neck Disposition: ADMITTED IP TO THIS [facility] Condition: Stable Referrals: Reyna Browning DO [Primary Care Provider] - 1-2 days Time of Disposition: 17:07
--- NOTE | 2017-06-20 16:24 | XR ---
EXAMINATION TYPE: XR Hip RT and AP Pelvis DATE OF EXAM: 06/20/2017 COMPARISON: Abdominal KUB dated 10/24/2016 HISTORY: Pain TECHNIQUE: A single AP view of the pelvis is obtained. Two views of the right hip are obtained. FINDINGS: There is displaced fracture of the right femoral neck. Appears to be a comminuted fracture . Assessment of the right inferior pubic ramus limited. SI joints symmetric. Arthropathy of the left hi p. Degenerative change lower lumbar spine. IMPRESSION: 1. Displaced right femoral neck fracture with comminution. 2. Deformity of the right inferior pubic ramus appears chronic correlate for remote trauma.
--- NOTE | 2017-06-20 16:36 | XR ---
EXAMINATION TYPE: XR chest 1V portable DATE OF EXAM: 06/20/2017 COMPARISON: Prior chest 06/15/2016 HISTORY: Pain TECHNIQUE: Single frontal view of the chest is obtained. FINDINGS: There is no focal air space opacity, pleural effusion, or pneumothorax seen. The cardiac silhouette size is stable. The osseous structures are intact. IMPRESSION: No acute process.
[2017-06-20] MEDS ORDERED: IBUPROFEN 400 MG TAB PO PRN (17:09)
[2017-06-20] MEDS ORDERED: NALOXONE 0.4 MG/ML 1 ML VIAL IV PRN (17:09)
[2017-06-20] MEDS ORDERED: ACETAMINOPHEN TAB 325 MG TAB PO PRN (17:09)
--- NOTE | 2017-06-20 18:16 | P.HPOR ---
History of Present Illness H&P Date: 06/20/17 Chief Complaint: Right hip pain status post fall Patient is a very pleasant 67-year-old female who is seen and examined in the emergency department room #12 for further evaluation for her right intertrochanteric hip fracture. Patient states she was outside walking her dogs when she slipped and fell on the ice landing on her buttocks. She had severe pain at that time and was unable to ambulate. She was brought to [facility] for further evaluation. Upon presentation and examination in the emergency department, she was found to have a right intertrochanteric hip fracture. She has remained in the emergency room. She is on bed rest. A Johnson catheter has been placed. She is neurovascularly intact down the right lower extremity. She denies any other pain or injury. She states her pain in the right hip is quite significant and she has significant pain with any movement of her right hip. She states she did sustain a fall approximate 4 years ago at which time she landed on her buttocks. At that time she presented to the emergency department and states she was not told she had a fracture but had significant difficulty was sitting and ambulation for approximately 4 weeks. We did discuss imaging shows a possibility of a previous rami fracture was difficult to assess that may have accounted for her symptoms previously. Patient's primary care provider is Dr. Reyna Browning. Consultation has been placed with Dr. Alves for medical clearance in anticipation for surgical intervention tomorrow. Patient has a history of multiple sclerosis which she states was diagnosed 30 years ago. Past Medical History Additional Past Medical History / Comment(s): lyme disease, ms History of Any Multi-Drug Resistant Organisms: C-DIFF Date of last positivie culture/infection: 10/24/2016 MDRO Source:: Stool Past Surgical History: No Surgical Hx Reported Additional Past Surgical History / Comment(s): Ovarian cyst removal Past Anesthesia/Blood Transfusion Reactions: No Reported Reaction Past Psychological History: Depression Smoking Status: Current every day smoker Past Alcohol Use History: None Reported Past Drug Use History: None Reported Medications and Allergies Home Medications Medication Instructions Recorded Confirmed Type Gabapentin [Neurontin] 100 mg PO TID 06/15/16 06/20/17 History Glatiramer Acetate [Copaxone] 40 mg SQ MOWEFR 06/15/16 06/20/17 History Venlafaxine HCl ER [Effexor XR] 75 mg PO DAILY 06/15/16 06/20/17 History Alpha Lipoic Acid 50 mg PO DAILY 06/20/17 06/20/17 History Ascorbic Acid [Vitamin C] 500 mg PO DAILY 06/20/17 06/20/17 History Aspirin [Adult Low Dose Aspirin EC] 81 mg PO DAILY 06/20/17 06/20/17 History Baclofen [Lioresal] 10 mg PO DAILY 06/20/17 06/20/17 History Biotin 5,000 mcg PO BID 06/20/17 06/20/17 History Cat's Claw 500 mg PO DAILY 06/20/17 History Glucosamine/Chondr Dinh A Sod [Osteo 1 each PO DAILY 06/20/17 06/20/17 History Bi-Flex Caplet] Multivit-Min/Iron/Folic/Lutein 1 each PO DAILY 06/20/17 06/20/17 History [Centrum Silver Women Tablet] [place]-3 Fatty Acids/Fish Oil [Fish 1 each PO DAILY 06/20/17 06/20/17 History Oil 1,000 mg Softgel] Omeprazole 40 mg PO DAILY 06/20/17 06/20/17 History Simvastatin [Zocor] 20 mg PO HS 06/20/17 06/20/17 History Ubidecarenone [Co Q-10] 100 mg PO DAILY 06/20/17 06/20/17 History amLODIPine [Norvasc] 2.5 mg PO DAILY 06/20/17 06/20/17 History Allergies Allergy/AdvReac Type Severity Reaction Status Date / Time cefuroxime AdvReac Diarrhea Verified 06/20/17 15:42 Sulfa (Sulfonamide AdvReac Vomiting Verified 06/20/17 15:43 Antibiotics) Physical Examination Physical exam: Patient is awake, alert, and oriented 3 Vital signs stable Good chest excursion with deep inspiration and expiration Right lower extremity is shortened and internally rotated Pain with palpation of the right hip Significant pain with internal and external rotation of the right hip No pain with internal and external rotation of the left hip Neurovascularly intact bilateral lower extremities Dorsiflexion, plantarflexion, and extensor hallucis longus positive sustained bilaterally Calves are soft and supple; No signs or symptoms of DVT; No calf pain Results Pertinent studies: X-ray right hip and pelvis taken on 06/20/2017: Evidence of displaced right intertrochanteric hip fracture; radiologist read the fracture as displaced right femoral neck fracture with comminution but imaging has been reviewed by myself and Dr. Marie who feels this is an intertrochanteric hip fracture not a femoral neck fracture; assessment of right inferior pubic ramus is limited; left hip arthropathy - Labs Labs: Abnormal Lab Results - Last 24 Hours (Table) 06/20/17 Range/Units 14:55 WBC 14.7 H (3.8-10.6) k/uL RBC 3.75 L (3.80-5.40) m/uL Neutrophils # 11.4 H (1.3-7.7) k/uL H & H 06/20/17 Range/Units 14:55 Hgb 11.5 (11.4-16.0) gm/dL Hct 35.6 (34.0-46.0) % Coagulation 06/20/17 Range/Units 14:55 INR 1.1 (<1.2) Result Diagrams: 06/20/17 14:55 06/20/17 14:55 Assessment and Plan Assessment: Assessment: Right intertrochanteric hip fracture Right hip pain Status post fall History of multiple sclerosis (1) Fracture, intertrochanteric, right femur Current Visit: Yes Status: Acute Code(s): S72.141A - DISPLACED INTERTROCHANTERIC FRACTURE OF RIGHT FEMUR, INIT SNOMED Code(s): 635640534 (2) Status post fall Current Visit: Yes Status: Acute Code(s): Z91.81 - HISTORY OF FALLING SNOMED Code(s): 823219463 (3) Acute right hip pain Current Visit: Yes Status: Acute Code(s): M25.551 - PAIN IN RIGHT HIP SNOMED Code(s): 75587002 (4) History of multiple sclerosis Current Visit: Yes Status: Acute Code(s): Z86.69 - PERSONAL HISTORY OF DIS OF THE NERVOUS SYS AND SENSE ORGANS SNOMED Code(s): 550236246 Plan: Plan: 1. Patient has been discussed in detail with Dr. Marie. After physical examination of the patient, reviewing of imaging, and further discussion with the patient, we are currently planning to proceed forward with surgical intervention tomorrow, 06/21/2017. Patient does have evidence of right intertrochanteric hip fracture. We will currently plan for intramedullary nail fixation for her right intertrochanteric hip fracture. Consultation has been placed with Dr. Alves in medicine for surgical clearance. Patient will continue to remain on bed rest and nonweightbearing on the right lower extremity. Johnson catheter has been placed. Patient may continue to eat today. She'll become nothing by mouth status at midnight in anticipation for surgical intervention tomorrow. I discussed these issues with the patient at length and I answered all of their questions to the best of my ability and the patient understands. I discussed the risk of surgical intervention and alternative treatment options. The risk of surgical intervention was explained to the patient in detail including but not limited to risk of bleeding, risk of infection, risk and need for further surgery, risk of decreased loss of motion of function, malunion, nonunion, hardware failure, nerve damage, paralysis, heart attack, , as well as the fact that surgery may not alleviate her symptoms. I answered all the patient's questions the best of my ability. The patient would like to proceed forward with surgical intervention and will sign informed consent. 2. Dr. Alves medicine will evaluate the patient for surgical clearance 3. We will continue to follow patient closely 4. Patient has been discussed in detail with Dr. Marie and he agrees with this plan Time with Patient: Greater than 30
[2017-06-20 19:10] VITALS: BMI 21.1
[2017-06-20] MEDS: MORPHINE SULFATE 4 MG/ML SYRINGE IVP PRN (20:06)
[2017-06-20] MEDS: ONDANSETRON 4 MG/2 ML VIAL IVP PRN (20:40)
[2017-06-20] MEDS: COPAXONE 40 MG SQ SCH (20:55)
[2017-06-20] MEDS: ATORVASTATIN 10 MG TAB PO SCH (20:56)
[2017-06-20] MEDS: BIOTIN 5000 MCG PO SCH (20:56)
[2017-06-20] MEDS: GABAPENTIN 100 MG CAP PO SCH (20:56)
[2017-06-21] MEDS: ONDANSETRON 4 MG/2 ML VIAL IVP PRN ×2 (02:50→10:11)
[2017-06-21] MEDS: MORPHINE SULFATE 4 MG/ML SYRINGE IVP PRN ×2 (02:50→10:12)
[2017-06-21] MEDS: SODIUM CHLORIDE 0.9% 1,000 ML IV SCH ×2 (05:17→23:33)
[2017-06-21] MEDS: PANTOPRAZOLE 40 MG TABLET PO SCH (08:49)
[2017-06-21] MEDS: BACLOFEN 10 MG TAB PO SCH (08:50)
[2017-06-21] MEDS: ALPHA LIPOIC ACID 50 MG PO SCH (08:50)
[2017-06-21] MEDS: amLODIPine 2.5 MG TAB PO SCH (08:50)
[2017-06-21] MEDS: ASCORBIC ACID 500 MG TAB PO SCH (08:50)
[2017-06-21] MEDS: GABAPENTIN 100 MG CAP PO SCH ×3 (08:51→21:44)
[2017-06-21] MEDS: VENLAFAXINE HCL ER 75 MG CAP PO SCH (08:51)
[2017-06-21] MEDS: CO Q-10 100MG PO SCH (08:51)
[2017-06-21] MEDS: OSTEO BIO FLEX PO SCH (08:51)
[2017-06-21] MEDS: MULTIVITAMINS, THERA 1 EACH TAB PO SCH (08:51)
[2017-06-21] MEDS: OMEGA 3 1000MG PO SCH (08:51)
[2017-06-21] MEDS: BIOTIN 5000 MCG PO SCH ×2 (08:51→23:33)
[2017-06-21] MEDS ORDERED: PANTOPRAZOLE 40 MG/10 ML VIAL IV SCH (09:00)
--- NOTE | 2017-06-21 10:33 | P.PN ---
Progress Note - Text Progress Note Date: 06/21/17 Patient is a pleasant 67-year-old female who is seen and examined at the bedside this morning for further evaluation for her right intratrochanteric hip fracture. Since being seen examined yesterday, she's been transferred to the third floor. She continues to have significant pain in her right hip. She is had some nausea as well. She is on bedrest with a Johnson catheter and intact. She became nothing by mouth status at midnight today in anticipation for surgical intervention today. She is currently waiting for consultation by medicine for surgical clearance. She continues to have significant pain in her right hip. She states she is looking forward to getting surgery performed today. Physical exam: Patient is awake, alert, and oriented 3 Vital signs stable Good chest excursion with deep inspiration and expiration Right lower extremity is shortened and internally rotated Pain with palpation of the right hip Significant pain with internal and external rotation of the right hip No pain with internal and external rotation of the left hip Neurovascularly intact bilateral lower extremities Dorsiflexion, plantarflexion, and extensor hallucis longus positive sustained bilaterally Calves are soft and supple; No signs or symptoms of DVT; No calf pain Johnson catheter intact Pertinent studies: X-ray right hip and pelvis taken on 06/20/2017: Evidence of displaced right intertrochanteric hip fracture; radiologist read the fracture as displaced right femoral neck fracture with comminution but imaging has been reviewed by myself and Dr. Marie who feels this is an intertrochanteric hip fracture not a femoral neck fracture; assessment of right inferior pubic ramus is limited; left hip arthropathy Assessment: Right intertrochanteric hip fracture Right hip pain Status post fall History of multiple sclerosis Plan: 1. We are continuing with her plan as set forth yesterday. Patient has been discussed in detail with Dr. Marie. After physical examination of the patient, reviewing of imaging, and further discussion with the patient, we are currently planning to proceed forward with surgical intervention today, 06/21/2017. Patient does have evidence of right intertrochanteric hip fracture. We will currently plan for intramedullary nail fixation for her right intertrochanteric hip fracture. Consultation has been placed with Dr. Alves in medicine for surgical clearance and patient is currently waiting for this consultation. Patient will continue to remain on bed rest and nonweightbearing on the right lower extremity. Johnson catheter has been placed. Patient continue to be nothing by mouth status in anticipation for surgical intervention today. I discussed these issues with the patient at length and I answered all of their questions to the best of my ability and the patient understands. I discussed the risk of surgical intervention and alternative treatment options. The risk of surgical intervention was explained to the patient in detail including but not limited to risk of bleeding, risk of infection, risk and need for further surgery, risk of decreased loss of motion of function, malunion, nonunion, hardware failure, nerve damage, paralysis, heart attack, , as well as the fact that surgery may not alleviate her symptoms. I answered all the patient's questions the best of my ability. The patient would like to proceed forward with surgical intervention and will sign informed consent. 2. Dr. Alves [facility] will evaluate the patient for surgical clearance 3. We'll plan to increase Zofran to every 6 hours as needed for nausea 4. We will continue to follow patient closely 5. Patient has been discussed in detail with Dr. Marie and he agrees with this plan
[2017-06-21] MEDS ORDERED: ONDANSETRON 4 MG/2 ML VIAL IVP PRN (10:42)
--- NOTE | 2017-06-21 11:33 | P.HPIM ---
History of Present Illness H&P Date: 06/21/17 Montserrat Maradiaga is a 67-year-old female, patient of Dr. Reyna Browning who is presented to [facility] emergency department after sustaining a fall and complaining of right hip pain. Patient states she was outside walking her dogs when she slipped and fell on the ice landing on her buttocks. She had severe pain and was unable to ambulate. She was found to have a right intertrochanteric hip fracture. She was admitted to Dr. Marie service, medical consultation was requested for surgical clearance and medical management while hospitalized. Patient has a known history of multiple sclerosis for many years for that she is maintained on Copaxone, Neurontin and baclofen patient also has known history of depression well-controlled on Effexor and history of hyperlipidemia maintained on simvastatin otherwise she denies any past medical history and specific she denies any history of coronary artery disease congestive heart failure she denies any episodes of angina or chest pain, she denies any history of asthma or emphysema, she smokes 1 pack per day but she states she was never diagnosed with COPD. Past surgical history significant for only one surgery in 1967 for right ovarian cyst she denies having any reaction to any anesthesia medications. Social history significant for smoking one pack per day for many years she denies any alcohol or drug use. On review of systems Patient is alert and oriented 3 she denies any headache or dizziness, no fever or chills No chest pain or palpitation No shortness of breath no cough no hemoptysis No nausea or vomiting no abdominal pain no diarrhea or constipation No burning with urination no frequency or urgency and no hematuria Past Medical History Additional Past Medical History / Comment(s): lyme disease, ms History of Any Multi-Drug Resistant Organisms: C-DIFF Date of last positivie culture/infection: 10/24/2016 MDRO Source:: Stool Past Surgical History: No Surgical Hx Reported Additional Past Surgical History / Comment(s): Ovarian cyst removal Past Anesthesia/Blood Transfusion Reactions: No Reported Reaction Past Psychological History: Depression Smoking Status: Current every day smoker Past Alcohol Use History: None Reported Past Drug Use History: None Reported - Past Family History Father Family Medical History: CVA/TIA Medications and Allergies Home Medications Medication Instructions Recorded Confirmed Type Gabapentin [Neurontin] 100 mg PO TID 06/15/16 06/20/17 History Glatiramer Acetate [Copaxone] 40 mg SQ MOWEFR 06/15/16 06/20/17 History Venlafaxine HCl ER [Effexor XR] 75 mg PO DAILY 06/15/16 06/20/17 History Alpha Lipoic Acid 50 mg PO DAILY 06/20/17 06/20/17 History Ascorbic Acid [Vitamin C] 500 mg PO DAILY 06/20/17 06/20/17 History Aspirin [Adult Low Dose Aspirin EC] 81 mg PO DAILY 06/20/17 06/20/17 History Baclofen [Lioresal] 10 mg PO DAILY 06/20/17 06/20/17 History Biotin 5,000 mcg PO BID 06/20/17 06/20/17 History Cat's Claw 500 mg PO DAILY 06/20/17 History Glucosamine/Chondr Dinh A Sod [Osteo 1 each PO DAILY 06/20/17 06/20/17 History Bi-Flex Caplet] Multivit-Min/Iron/Folic/Lutein 1 each PO DAILY 06/20/17 06/20/17 History [Centrum Silver Women Tablet] [place]-3 Fatty Acids/Fish Oil [Fish 1 each PO DAILY 06/20/17 06/20/17 History Oil 1,000 mg Softgel] Omeprazole 40 mg PO DAILY 06/20/17 06/20/17 History Simvastatin [Zocor] 20 mg PO HS 06/20/17 06/20/17 History Ubidecarenone [Co Q-10] 100 mg PO DAILY 06/20/17 06/20/17 History amLODIPine [Norvasc] 2.5 mg PO DAILY 06/20/17 06/20/17 History Allergies Allergy/AdvReac Type Severity Reaction Status Date / Time cefuroxime AdvReac Diarrhea Verified 06/20/17 15:42 Sulfa (Sulfonamide AdvReac Vomiting Verified 06/20/17 15:43 Antibiotics) Physical Exam Vitals: Vital Signs Temp Pulse Pulse Resp BP BP BP 06/21/17 07:00 98.3 F 78 16 94/55 06/21/17 01:30 97.9 F 74 16 104/63 06/20/17 20:09 98.1 F 78 18 102/59 06/20/17 17:25 98.0 F 76 18 124/57 06/20/17 15:31 79 18 142/65 06/20/17 14:32 98 F 73 18 137/64 Pulse Ox 06/21/17 07:00 96 06/21/17 01:30 96 06/20/17 20:09 96 06/20/17 17:25 98 06/20/17 15:31 97 06/20/17 14:32 96 Intake and Output 06/20/17 06/21/17 06/21/17 22:59 06:59 14:59 Intake Total 580 1086 Output Total 1300 550 Balance -720 536 Intake: Intake, IV Titration 400 1086 Amount Sodium Chloride 0.9% 1, 400 1086 000 ml @ 100 mls/hr IV . Q10H [facility] Rx#:[id number] Oral 180 0 Output: Urine 1300 550 Other: Voiding Method Indwelling Catheter Weight 55.792 kg In general patient is alert and oriented 3 in no apparent distress HEENT head normocephalic and atraumatic Neck is supple no JVD no goiter no lymphadenopathy Chest exam reveals a few scattered crackles bilaterally no wheezing Cardiac exam reveals regular heart sounds S1 and S2 no gallops no murmurs Abdomen is soft nontender no organomegaly with normal bowel sounds Extremity exam reveals no edema no cyanosis or clubbing Results CBC & Chem 7: 06/20/17 14:55 06/20/17 14:55 Labs: Abnormal Lab Results - Last 24 Hours (Table) 06/20/17 Range/Units 14:55 WBC 14.7 H (3.8-10.6) k/uL RBC 3.75 L (3.80-5.40) m/uL Neutrophils # 11.4 H (1.3-7.7) k/uL Thrombosis Risk Factor Assmnt - Choose All That Apply Each Risk Factor Represents 2 Points: Age 61-74 years, Major surgery Each Risk Factor Represents 5 Points: Hip, pelvis, or leg fracture (< 1 month) Thrombosis Risk Factor Assessment Total Risk Factor Score: 9 Thrombosis Risk Factor Assessment Level: High Risk Assessment and Plan Plan: #1 Fall with right intertrochanteric hip fracture #2 underlying history of multiple sclerosis #3 underlying history of hyperlipidemia #4 underlying history of depression Labs chest x-ray and EKG were reviewed, patient was seen and examined history obtained There is no evidence of coronary artery disease or symptoms to suggest acute coronary syndrome or angina There is no evidence of any infectious process, skin is intact urine analysis normal and chest x-ray normal There is no medical contraindication for surgery Will follow during this hospitalization for medical management
[2017-06-21] MEDS ORDERED: IV FLUID CONTINUATION 1,000 ML IV ONE ×2 (12:46→14:27)
[2017-06-21] MEDS ORDERED: SCOPOLAMINE 1.5MG/72HR PATCH TRANSDERM ONE (13:02)
[2017-06-21] MEDS ORDERED: ONDANSETRON 4 MG/2 ML VIAL IVP ONE (13:02)
[2017-06-21] MEDS ORDERED: MIDAZOLAM 2 MG/2 ML VIAL ONE (14:25)
[2017-06-21] MEDS ORDERED: ROCURONIUM BROMIDE 10 MG/ML 10 ML VIAL IV ONE (14:25)
[2017-06-21] MEDS ORDERED: PROPOFOL 10 MG/ML 20 ML VIAL IV ONE (14:25)
[2017-06-21] MEDS ORDERED: DEXAMETHASONE SOD PHOS (MDV) 100 MG/10 ML VIAL ONE (14:25)
[2017-06-21] MEDS ORDERED: PHENYLEPHRINE-0.9% NACL SYG 1 MG/10 ML SYRINGE ONE (14:25)
[2017-06-21] MEDS ORDERED: KETAMINE 10 MG/ML 20 ML VIAL ONE (14:25)
[2017-06-21] MEDS ORDERED: fentaNYL (PF) 50 MCG/ML 2 ML AMP ONE (14:25)
[2017-06-21] MEDS ORDERED: ONDANSETRON 4 MG/2 ML VIAL ONE (14:25)
[2017-06-21] MEDS ORDERED: SODIUM CHLORIDE 0.9% 50 ML with ceFAZolin 2,000 MG IV ONE ×2 (14:45)
[2017-06-21] MEDS ORDERED: LACTATED RINGERS 1,000 ML IV ONE (15:30)
--- NOTE | 2017-06-21 15:41 | FL ---
EXAMINATION TYPE: FL guidance operating room, XR Hip Complete RT DATE OF EXAM: 06/21/2017 CLINICAL HISTORY: Right hip fracture. TECHNIQUE: Fluoroscopy. COMPARISON: Pelvic and right hip x-ray from yesterday FINDINGS: Fluoroscopic guidance was provided during open reduction internal fixation procedure perfo rmed by Dr. Marie. A total of 57 seconds of fluoroscopic time was utilized during the procedure and 2 spot intraoperative images are acquired. Images acquired show placement of large intramedullary amada with distal transverse fixating screw and larger femoral necks fixating screws through the basicervical fracture proximal right femur. Satisfac tory alignment is seen on intraoperative images saved. IMPRESSION: As Above.
[2017-06-21] MEDS ORDERED: MORPHINE SULFATE 4 MG/ML SYRINGE IV ONE ×2 (16:02→16:11)
[2017-06-21] MEDS ORDERED: MORPHINE SULFATE 4 MG/ML SYRINGE IV PRN ×3 (17:36)
[2017-06-21] MEDS ORDERED: hydrOXYzine PAMOATE 25 MG CAP PO PRN (17:36)
[2017-06-21] MEDS ORDERED: MAGNESIUM HYDROXIDE 2,400 MG/10 ML CUP PO PRN (17:36)
--- NOTE | 2017-06-21 17:50 | P.OP ---
Date of Procedure: 06/21/17 Procedure(s) Performed: PREOPERATIVE DIAGNOSIS: Right hip intertrochanteric fracture. POSTOPERATIVE DIAGNOSIS: Right hip intertrochanteric fracture. OPERATION: Right hip intertrochanteric fracture closed reduction and intramedullary nailing using Synthes IT nail. ANESTHESIA: Spinal ESTIMATED BLOOD LOSS: 200 mL. COMPLICATIONS: None OPERATIVE FINDINGS: See dictation INDICATIONS: Mrs. Maradiaga is a 67 year old female with a history of right basicervical/intertrochanteric fracture. The patient presents to the operating room today for closed reduction and intramedullary nailing. I discussed the risks of surgery in detail as being inclusive of but not limited to: Bleeding, infection, scarring, discomfort, blood vessel and/or nerve damage, need for further surgery, malunion, nonunion, gait disturbance including persistent or permanent limp, limb length inequality, arthritis, hardware failure, blood clot , pulmonary embolism, , and other risks. The consent form has been signed. PROCEDURE: After appropriate consent was obtained, the patient was taken to the operating room and placed in supine position. [Spinal] anesthetic was administered and after confirmation of adequate anesthesia, the patient was carefully placed in the supine position on the operating room table in the fracture table. The patient was placed up against a well-padded peroneal post. Care was taken to make sure about that all pressure points were adequately padded. The affected leg was placed in boot traction and the unaffected leg was placed in a well leg tompkins. Using gentle longitudinal distraction as well as adduction and internal rotation , the fracture was reduced as assessed by AP and lateral C-arm imaging. Once a satisfactory reduction had been obtained, the thigh was prepped and draped in the usual aseptic fashion using ChloraPrep. Ioban drape was used for the case and the patient received intravenous antibiotics prior to incision. Timeout was called, confirming patient identity, side, procedure, and administration of antibiotics. The incision was then created with a #10 blade just proximal to the greater trochanter laterally. It was carried down through skin into the subcutaneous tissues and through fascia. Hemostasis was obtained using electrocautery. The tip of the greater trochanter was palpated and a guide pin was placed at the tip and directed into the femoral shaft as assessed with C-arm imaging. Once optimal pin position had been obtained, a 17 mm reamer was used over the guide pin to create a path for the IT nail. IT nail selected was assembled to the insertion jig on the back table and bushings were checked for accuracy. The nail was then inserted using gentle mallet taps until it was fully deployed. The amount of rotation of the implant was assessed based on the amount of anteversion of the femoral neck. This was rotated to match the patient's femoral neck anteversion and the helical blade guide was placed through the insertion jig and through an incision on the lateral side of the thigh more distal than the first. Once this guide was placed against the lateral cortex of the femur, a guide pin was drilled into the central region of the femoral head and neck as based on AP and lateral C-arm imaging. Once optimal pin position had been obtained, the guidewire was measured and appropriately sized helical blade was selected. The path for the helical blade was prepared using a tapered reamer. The helical blade was then inserted using gentle mallet taps along the guidewire until it was fully deployed. There was no displacement of the fracture during this step. The anti-rotation screw was locked down and the insertion apparatus for the helical blade was removed. The guide pin was then removed. Traction was then removed from the leg and the distal interlock was placed through the jig using standard technique. Finally, the insertion jig for the nail was removed and final C-arm images were taken and saved in both AP and lateral planes. The final x-rays showed satisfactory positioning of the implant and good reduction of the fracture. The top of the nail was plugged with a small quantity of bone wax and the incisions were then thoroughly irrigated with normal saline. Final hemostasis was obtained using electrocautery and closure of the fascia was performed using 0-Vicryl suture. 2-0 Vicryl suture was used in the subcutaneous tissues and standard skin closure was performed. Sterile dressing was then applied and the patient was carefully removed from the fracture table frame and placed onto the stretcher. The patient tolerated the procedure well. There were no complications and above noted blood loss. The patient was then subsequently transferred to recovery room in stable condition. Sponge and needle counts were correct.
[2017-06-21 18:25] LABS: Basophils % (A) 0 %; Eosinophils % (A) 0 %; HCT 30.9 % (34.0-46.0); Lymphocytes # (A) 0.5 k/uL (1.0-4.8); Lymphocytes % (A) 3 %; MCH 30.9 pg (25.0-35.0); MCHC 32.1 g/dL (31.0-37.0); MCV 96.4 fL (80.0-100.0); Mean Platelet Volume 7.7; Monocytes # (A) 0.4 k/uL (0-1.0); Monocytes % (A) 3 %; Neutrophils % (A) 94 %; Platelet Count 235 k/uL (150-450); RDW 12.6 % (11.5-15.5); WBC 14.9 k/uL (3.8-10.6)
[2017-06-21 18:31] LABS: HGB 9.9 gm/dL (11.4-16.0)
[2017-06-21] MEDS: WARFARIN 5 MG TAB PO SCH ×2 (20:15→21:46)
[2017-06-21] MEDS: ATORVASTATIN 10 MG TAB PO SCH (21:44)
[2017-06-22] MEDS: HYDROcodone/APAP 5-325MG 1 EACH TAB PO PRN ×4 (04:20→21:35)
[2017-06-22 08:16] LABS: INR 1.2 (<1.2); Prothrombin Time 11.6 sec (9.0-12.0)
[2017-06-22] MEDS: GABAPENTIN 100 MG CAP PO SCH ×3 (08:19→21:35)
[2017-06-22] MEDS: ENOXAPARIN 40 MG/0.4 ML SYRINGE SQ SCH (08:19)
[2017-06-22] MEDS: MULTIVITAMINS, THERA 1 EACH TAB PO SCH (08:19)
[2017-06-22] MEDS: BACLOFEN 10 MG TAB PO SCH (08:19)
[2017-06-22] MEDS: PANTOPRAZOLE 40 MG TABLET PO SCH (08:20)
[2017-06-22] MEDS: VENLAFAXINE HCL ER 75 MG CAP PO SCH (08:20)
[2017-06-22] MEDS: ASCORBIC ACID 500 MG TAB PO SCH (08:20)
[2017-06-22] MEDS: BIOTIN 5000 MCG PO SCH ×2 (10:16→21:36)
[2017-06-22] MEDS: CO Q-10 100MG PO SCH (10:16)
[2017-06-22] MEDS: OMEGA 3 1000MG PO SCH (10:16)
[2017-06-22] MEDS: ALPHA LIPOIC ACID 50 MG PO SCH (10:16)
[2017-06-22] MEDS: SODIUM CHLORIDE 0.9% 1,000 ML IV SCH ×2 (10:16→21:05)
[2017-06-22] MEDS: amLODIPine 2.5 MG TAB PO SCH (10:16)
[2017-06-22] MEDS: OSTEO BIO FLEX PO SCH (10:16)
--- NOTE | 2017-06-22 13:41 | P.PN ---
Progress Note - Text Progress Note Date: 06/22/17 Patient is a very pleasant 67-year-old female who is seen and examined at the bedside for follow-up evaluation after undergoing right intramedullary nail fixation for intertrochanteric hip fracture. Postsurgically patient has had some improvement of the pain in the right hip. Her pain continues to be persistent. She has been able to transfer to a bedside chair with help. She has remained toe-touch weightbearing on the right lower extremity. She is a little frustrated that her recovery will take an extended period of time. Nursing states she has been attempting to get up on her own and they're currently planning to place a bed alarm to monitor her. Patient states she would like to be discharged home but she is unsure if she'll be able to be discharged home without difficulty. She states she would like to discuss the possibility of rehab in greater detail with her . She has had improvement of nausea as compared to yesterday. She is eating without difficulty. Her Johnson catheter remains intact. Consultation has been placed with physical therapy today. We discussed she will prescribe a walker to aid in ambulation at discharge. Physical Exam Intramedullary Rodding for Intertrochanteric Fracture: Status post surgical day number 1 Patient is examined sitting in a bedside chair Patient is awake and alert, and oriented 3 Vital signs stable Good chest excursion with deep inspiration and expiration Abdomen soft nontender No signs or symptoms of DVT; no calf pain Lower extremity cuffs not currently place bilaterally Dressing of the right hip is clean, dry, and intact; no erythema, purulence, or signs of infection Some pain on palpation over the surgical sites of the right hip Full range of motion of ankles bilaterally Dorsiflexion, plantarflexion, and extensor hallucis longus positive sustained bilaterally Neurovascularly intact bilateral lower extremities Capillary refill less than 2 seconds bilateral lower extremities Johnson catheter intact Assessment: Status post right intramedullary nail fixation for right intertrochanteric hip fracture Status post fall History of multiple sclerosis Plan: 1. Patient to remain toe-touch weightbearing on the right lower extremity; patient may work with physical therapy to increase mobility and ambulation 2. Keep dressing over the right hip clean, dry, and intact 3. Discontinue Johnson catheter when patient is able to increase mobility and ambulation 4. Continue pain control 5. Continue with anticoagulation therapy as set forth by Dr. Makim with Lovenox and Coumadin 6. Medicine to continue following the patient for their other medical diagnosis 7. We'll continue to follow the patient closely; depending on the patient's progress, we may plan for discharge as early as tomorrow either to home or to a rehabilitation facility 8. Patient can follow-up with Jaden Tanner PA-C or Dr. Rodney Allen at [facility] in 2-3 weeks following discharge
--- NOTE | 2017-06-22 14:59 | P.PN ---
Subjective Progress Note Date: 06/22/17 Montserrat Maradiaga is a 67-year-old female, patient of Dr. Reyna Browning who is presented to [facility] emergency department after sustaining a fall and complaining of right hip pain. Patient states she was outside walking her dogs when she slipped and fell on the ice landing on her buttocks. She had severe pain and was unable to ambulate. She was found to have a right intertrochanteric hip fracture. She was admitted to Dr. Marie service, medical consultation was requested for surgical clearance and medical management while hospitalized. Patient has a known history of multiple sclerosis for many years for that she is maintained on Copaxone, Neurontin and baclofen patient also has known history of depression well-controlled on Effexor and history of hyperlipidemia maintained on simvastatin otherwise she denies any past medical history and specific she denies any history of coronary artery disease congestive heart failure she denies any episodes of angina or chest pain, she denies any history of asthma or emphysema, she smokes 1 pack per day but she states she was never diagnosed with COPD. Past surgical history significant for only one surgery in 1967 for right ovarian cyst she denies having any reaction to any anesthesia medications. Objective - Vital Signs Vital signs: Vital Signs Temp 98.7 F 06/22/17 08:16 Pulse 86 06/22/17 08:16 Resp 16 06/22/17 08:16 BP 109/61 06/22/17 08:16 Pulse Ox 98 06/22/17 08:16 Intake & Output 06/21/17 06/22/17 06/22/17 17:59 06:59 18:59 Intake Total Output Total 1100 Balance -1100 Intake: IV Intake, IV Titration Amount Lactated Ringers 1,000 ml As IV [facility] Rx#: [id number] Sodium Chloride 0.9% 1, 000 ml @ 100 mls/hr IV . Q10H [facility] Rx#:[id number] Output: Urine 1100 Estimated Blood Loss Other: Voiding Method Indwelling Catheter - Exam In general patient is alert and oriented 3 in no apparent distress HEENT head normocephalic and atraumatic Neck is supple no JVD no goiter no lymphadenopathy Chest exam reveals a few scattered crackles bilaterally no wheezing Cardiac exam reveals regular heart sounds S1 and S2 no gallops no murmurs Abdomen is soft nontender no organomegaly with normal bowel sounds Extremity exam reveals no edema no cyanosis or clubbing - Labs CBC & Chem 7: 06/21/17 18:09 06/20/17 14:55 Labs: Abnormal Lab Results - Last 24 Hours (Table) 06/21/17 06/22/17 Range/Units 18:09 06:57 WBC 14.9 H (3.8-10.6) k/uL RBC 3.20 L (3.80-5.40) m/uL Hgb 9.9 L D (11.4-16.0) gm/dL Hct 30.9 L (34.0-46.0) % Neutrophils # 14.0 H (1.3-7.7) k/uL Lymphocytes # 0.5 L (1.0-4.8) k/uL INR 1.2 H (<1.2) Assessment and Plan Plan: #1 Fall with right intertrochanteric hip fracture. Status post right intramedullary nail fixation for right intertrochanteric hip fracture post operative day #1 #2 underlying history of multiple sclerosis #3 underlying history of hyperlipidemia #4 underlying history of depression Today I reviewed medication and labs continue was current management Recheck labs in a.m. Remove Johnson catheter Will follow closely
[2017-06-22] MEDS: WARFARIN 5 MG TAB PO SCH (18:45)
[2017-06-22] MEDS: ATORVASTATIN 10 MG TAB PO SCH (21:35)
[2017-06-23] MEDS: SODIUM CHLORIDE 0.9% 1,000 ML IV SCH ×2 (04:20→13:11)
[2017-06-23] MEDS: HYDROcodone/APAP 5-325MG 1 EACH TAB PO PRN (07:04)
[2017-06-23 07:23] LABS: Basophils % (A) 0 %; Eosinophils % (A) 0 %; HCT 26.2 % (34.0-46.0); HGB 8.8 gm/dL (11.4-16.0); Lymphocytes # (A) 1.4 k/uL (1.0-4.8); Lymphocytes % (A) 11 %; MCH 31.8 pg (25.0-35.0); MCHC 33.6 g/dL (31.0-37.0); MCV 94.7 fL (80.0-100.0); Monocytes # (A) 1.3 k/uL (0-1.0); Monocytes % (A) 10 %; Neutrophils % (A) 77 %; Platelet Count 197 k/uL (150-450); RBC 2.77 m/uL (3.80-5.40); RDW 12.9 % (11.5-15.5)
[2017-06-23 07:44] LABS: ALT 34 U/L (9-52); AST 63 U/L (14-36); Albumin 3.5 g/dL (3.5-5.0); Alkaline Phosphatase 67 U/L (38-126); Anion Gap 9 mmol/L; Blood Urea Nitrogen 13 mg/dL (7-17); Calcium 8.6 mg/dL (8.4-10.2); Carbon Dioxide 27 mmol/L (22-30); Chloride 103 mmol/L (98-107); Glucose 100 mg/dL (74-99); Potassium 3.8 mmol/L (3.5-5.1); Sodium 139 mmol/L (137-145); Total Bilirubin 0.4 mg/dL (0.2-1.3); Total Protein 5.9 g/dL (6.3-8.2)
[2017-06-23] MEDS: PANTOPRAZOLE 40 MG TABLET PO SCH (09:20)
[2017-06-23] MEDS: amLODIPine 2.5 MG TAB PO SCH (09:22)
[2017-06-23] MEDS: ALPHA LIPOIC ACID 50 MG PO SCH (09:22)
[2017-06-23] MEDS: BIOTIN 5000 MCG PO SCH ×2 (09:23→22:40)
[2017-06-23] MEDS: BACLOFEN 10 MG TAB PO SCH (09:23)
[2017-06-23] MEDS: ENOXAPARIN 40 MG/0.4 ML SYRINGE SQ SCH (09:23)
[2017-06-23] MEDS: ASCORBIC ACID 500 MG TAB PO SCH (09:23)
[2017-06-23] MEDS: OSTEO BIO FLEX PO SCH (09:24)
[2017-06-23] MEDS: GABAPENTIN 100 MG CAP PO SCH ×3 (09:24→22:39)
[2017-06-23] MEDS: MULTIVITAMINS, THERA 1 EACH TAB PO SCH (09:24)
[2017-06-23] MEDS: OMEGA 3 1000MG PO SCH (09:25)
[2017-06-23] MEDS: VENLAFAXINE HCL ER 75 MG CAP PO SCH (09:26)
[2017-06-23] MEDS: CO Q-10 100MG PO SCH (09:26)
[2017-06-23 09:58] LABS: INR 3.3 (<1.2); Prothrombin Time 29.2 sec (9.0-12.0)
[2017-06-23] MEDS ORDERED: ACETAMINOPHEN TAB 500 MG TAB PO PRN (10:36)
--- NOTE | 2017-06-23 10:53 | P.PN ---
Subjective Progress Note Date: 06/23/17 Montserrat Maradiaga is a 67-year-old female, patient of Dr. Reyna Browning who is presented to [facility] emergency department after sustaining a fall and complaining of right hip pain. Patient states she was outside walking her dogs when she slipped and fell on the ice landing on her buttocks. She had severe pain and was unable to ambulate. She was found to have a right intertrochanteric hip fracture. She was admitted to Dr. Marie service, medical consultation was requested for surgical clearance and medical management while hospitalized. Patient has a known history of multiple sclerosis for many years for that she is maintained on Copaxone, Neurontin and baclofen patient also has known history of depression well-controlled on Effexor and history of hyperlipidemia maintained on simvastatin otherwise she denies any past medical history and specific she denies any history of coronary artery disease congestive heart failure she denies any episodes of angina or chest pain, she denies any history of asthma or emphysema, she smokes 1 pack per day but she states she was never diagnosed with COPD. Past surgical history significant for only one surgery in 1967 for right ovarian cyst she denies having any reaction to any anesthesia medications. 06/23/2017 status post right intramedullary nail fixation for right intratrochenteric hip fracture postop day #2. Patient is sitting up at bedside chair. She had a low-grade temp of 100.6 yesterday and 99.3 this morning. WBC has shown improvement from 14.9-13. Urinalysis has not been collected yet. She denies any diarrhea. She denies any burning with urination. Denies any cough. Denies any chest pain or shortness of breath. An incision site is clean dry and intact. Patient is also having hallucinations. She is seeing birds that are not there. This started yesterday. She is alert and orientated to 3. She is communicating appropriately and talking to her . Objective - Vital Signs Vital signs: Vital Signs Temp 99.3 F 06/23/17 07:08 Pulse 95 06/23/17 07:08 Resp 16 06/23/17 07:08 BP 111/63 06/23/17 07:08 Pulse Ox 95 06/23/17 07:08 Intake & Output 06/22/17 06/23/17 06/23/17 18:59 06:59 18:59 Intake Total 180 Output Total 2200 300 Balance -2019 Weight 55.792 kg Intake: Oral 180 Output: Urine 2200 300 Uretheral (Johnson) 800 Other: Voiding Method Indwelling Catheter Toilet # Voids 2 2 - Exam Head normocephalic Neck supple Lungs diminished bilaterally Heart regular rate and rhythm S1-S2, no rub or gallop Abdomen is soft nontender nondistended positive bowel sounds no hepatosplenomegaly Extremities no edema. Right hip incision site is clean dry and intact Neuro alert and orientated to 3 - Labs CBC & Chem 7: 06/23/17 06:37 06/23/17 06:37 Labs: Abnormal Lab Results - Last 24 Hours (Table) 06/23/17 06/23/17 06/23/17 Range/Units 06:37 06:37 09:34 WBC 13.0 H (3.8-10.6) k/uL RBC 2.77 L (3.80-5.40) m/uL Hgb 8.8 L (11.4-16.0) gm/dL Hct 26.2 L (34.0-46.0) % Neutrophils # 10.0 H (1.3-7.7) k/uL Monocytes # 1.3 H (0-1.0) k/uL PT 29.2 H (9.0-12.0) sec INR 3.3 H (<1.2) Glucose 100 H (74-99) mg/dL AST 63 H (14-36) U/L Total Protein 5.9 L (6.3-8.2) g/dL Assessment and Plan Assessment: #1 Fall with right intertrochanteric hip fracture. Status post right intramedullary nail fixation for right intertrochanteric hip fracture post operative day #2. On Coumadin for DVT prophylaxis. INR is 3.3. Recommend no Coumadin tonight. Discontinue Lovenox #2 underlying history of multiple sclerosis #3 underlying history of hyperlipidemia #4 underlying history of depression #5 low-grade fever and leukocytosis: No evidence of acute infection. We'll check urinalysis. Incision site is clean dry and intact. Possibly related to atelectasis. Incentive spirometer has been ordered. Continue to monitor #6 expected acute blood loss anemia secondary to surgery. Start patient on ferrous sulfate. Hemoglobin 8.8. #7 hallucinations likely related to the Henry. Discontinue Henry and add Ultram for pain control. Continue to monitor #8 mild elevation in AST: Discontinue Lipitor for now. Repeat LFTs in a.m. GI prophylaxis Protonix Anticipating discharge home possibly tomorrow if patient remains afebrile and hallucinations improved I performed an examination of the patient and discussed their management with the physician Clinical Tech. I have reviewed the Physician Clinical Tech's notes and agree with the documented findings and plan of care
[2017-06-23 12:01] LABS: Appearance,Urine Clear (Clear); Bacteria,Urine Rare /hpf; Bilirubin,Urine Negative (Negative); Blood,Urine Moderate (Negative); Color,Urine Light Yellow; Glucose,Urine (UA) Negative (Negative); Ketones,Urine Negative (Negative); Leukocyte Esterase,Urine Small (Negative); Mucus,Urine Rare /hpf; Nitrite,Urine Negative (Negative); Protein,Urine Negative (Negative); RBC,Urine 19 /hpf (0-5); Specific Gravity,Urine 1.008 (1.001-1.035); Squamous Epithelial Cell,Urine 1 /hpf (0-4); Urobilinogen,Urine <2.0 mg/dL (<2.0); WBC,Urine 3 /hpf (0-5)
[2017-06-23] MEDS: traMADol 50 MG TAB PO PRN ×2 (14:28→22:39)
[2017-06-23] MEDS: COPAXONE 40 MG SQ SCH (17:25)
[2017-06-23] MEDS: FERROUS SULFATE 325 MG TAB PO SCH (22:40)
[2017-06-23] MEDS: CIPROFLOXACIN HCL 250 MG TAB PO SCH (22:40)
[2017-06-24 02:16] VITALS: TEMP 98.3
[2017-06-24 07:59] LABS: INR 3.1 (<1.2)
[2017-06-24 08:00] LABS: Basophils % (A) 0 %; Eosinophils # (A) 0.1 k/uL (0-0.7); Eosinophils % (A) 1 %; HCT 26.8 % (34.0-46.0); Lymphocytes # (A) 1.3 k/uL (1.0-4.8); Lymphocytes % (A) 13 %; MCH 31.9 pg (25.0-35.0); MCHC 33.8 g/dL (31.0-37.0); MCV 94.3 fL (80.0-100.0); Mean Platelet Volume 7.8; Monocytes % (A) 10 %; Neutrophils # (A) 7.7 k/uL (1.3-7.7); Neutrophils % (A) 74 %; Platelet Count 235 k/uL (150-450); RBC 2.84 m/uL (3.80-5.40); RDW 12.9 % (11.5-15.5); WBC 10.4 k/uL (3.8-10.6)
[2017-06-24 08:24] LABS: ALT 54 U/L (9-52); AST 84 U/L (14-36); Albumin 3.3 g/dL (3.5-5.0); Alkaline Phosphatase 67 U/L (38-126); Anion Gap 7 mmol/L; Blood Urea Nitrogen 11 mg/dL (7-17); Calcium 8.7 mg/dL (8.4-10.2); Carbon Dioxide 29 mmol/L (22-30); Chloride 101 mmol/L (98-107); Glucose 97 mg/dL (74-99); Potassium 3.7 mmol/L (3.5-5.1); Sodium 137 mmol/L (137-145); Total Bilirubin 0.5 mg/dL (0.2-1.3); Total Protein 5.7 g/dL (6.3-8.2)
[2017-06-24] MEDS: SODIUM CHLORIDE 0.9% 1,000 ML IV SCH ×2 (09:26→09:38)
[2017-06-24] MEDS: GABAPENTIN 100 MG CAP PO SCH ×2 (09:37→17:32)
[2017-06-24] MEDS: CIPROFLOXACIN HCL 250 MG TAB PO SCH (09:37)
[2017-06-24] MEDS: FERROUS SULFATE 325 MG TAB PO SCH (09:37)
[2017-06-24] MEDS: amLODIPine 2.5 MG TAB PO SCH (09:37)
[2017-06-24] MEDS: PANTOPRAZOLE 40 MG TABLET PO SCH (09:38)
[2017-06-24] MEDS: BACLOFEN 10 MG TAB PO SCH (09:38)
[2017-06-24] MEDS: ASCORBIC ACID 500 MG TAB PO SCH (09:38)
[2017-06-24] MEDS: MULTIVITAMINS, THERA 1 EACH TAB PO SCH (09:38)
[2017-06-24] MEDS: VENLAFAXINE HCL ER 75 MG CAP PO SCH (09:38)
[2017-06-24] MEDS: OMEGA 3 1000MG PO SCH (09:39)
[2017-06-24] MEDS: CO Q-10 100MG PO SCH (09:39)
[2017-06-24] MEDS: BIOTIN 5000 MCG PO SCH (09:42)
[2017-06-24] MEDS: OSTEO BIO FLEX PO SCH (09:42)
[2017-06-24] MEDS: ALPHA LIPOIC ACID 50 MG PO SCH (09:42)
--- NOTE | 2017-06-24 10:13 | P.PN ---
Subjective Progress Note Date: 06/23/17 Principal diagnosis: Intertrochanteric fracture right hip This is a 67-year-old female who is status post close reduction with insertion of intertrochanteric nail of the right hip. She is stable from an orthopedic standpoint. She has no new complaints or concerns today. Vital signs are stable. Objective - Vital Signs Vital signs: Vital Signs Temp 98.9 F 06/23/17 14:50 Pulse 100 06/23/17 14:50 Resp 16 06/23/17 14:50 BP 100/52 06/23/17 14:50 Pulse Ox 97 06/23/17 14:50 Intake & Output 06/22/17 06/23/17 06/23/17 18:59 06:59 18:59 Intake Total 180 240 Output Total 2200 300 Balance -2020 -300 240 Weight 55.792 kg 55.792 kg Intake: Oral 180 240 Output: Urine 2200 300 Uretheral (Johnson) 800 Other: Voiding Method Indwelling Catheter Toilet # Voids 2 2 - Exam This is a 67-year-old female in no acute distress. She is alert and oriented at this time. Exam of the right hip reveals that her dressing is clean, dry and intact. She has full foot and ankle motion without difficult or pain. Neurovascular status to the lower extremity is intact. - Labs CBC & Chem 7: 06/24/17 06:57 06/24/17 06:57 Labs: Abnormal Lab Results - Last 24 Hours (Table) 06/23/17 06/23/17 06/23/17 Range/Units 06:37 06:37 09:34 WBC 13.0 H (3.8-10.6) k/uL RBC 2.77 L (3.80-5.40) m/uL Hgb 8.8 L (11.4-16.0) gm/dL Hct 26.2 L (34.0-46.0) % Neutrophils # 10.0 H (1.3-7.7) k/uL Monocytes # 1.3 H (0-1.0) k/uL PT 29.2 H (9.0-12.0) sec INR 3.3 H (<1.2) Glucose 100 H (74-99) mg/dL AST 63 H (14-36) U/L Total Protein 5.9 L (6.3-8.2) g/dL Urine Blood (Negative) Ur Leukocyte Esterase (Negative) Urine RBC (0-5) /hpf Urine Bacteria (None) /hpf Urine Mucus (None) /hpf 06/23/17 Range/Units 11:30 WBC (3.8-10.6) k/uL RBC (3.80-5.40) m/uL Hgb (11.4-16.0) gm/dL Hct (34.0-46.0) % Neutrophils # (1.3-7.7) k/uL Monocytes # (0-1.0) k/uL PT (9.0-12.0) sec INR (<1.2) Glucose (74-99) mg/dL AST (14-36) U/L Total Protein (6.3-8.2) g/dL Urine Blood Moderate H (Negative) Ur Leukocyte Esterase Small H (Negative) Urine RBC 19 H (0-5) /hpf Urine Bacteria Rare H (None) /hpf Urine Mucus Rare H (None) /hpf Assessment and Plan (1) Acute right hip pain Current Visit: Yes Status: Acute Code(s): M25.551 - PAIN IN RIGHT HIP SNOMED Code(s): 63445681 (2) Fracture, intertrochanteric, right femur Current Visit: Yes Status: Acute Code(s): S72.141A - DISPLACED INTERTROCHANTERIC FRACTURE OF RIGHT FEMUR, INIT SNOMED Code(s): 530826142 (3) Status post fall Current Visit: Yes Status: Acute Code(s): Z91.81 - HISTORY OF FALLING SNOMED Code(s): 839254526 Plan: The clinical findings are discussed the patient. We are planning discharge to home tomorrow.
--- NOTE | 2017-06-24 10:43 | P.DS ---
Providers Date of admission: 06/20/17 17:01 Expected date of discharge: 06/24/17 Attending physician: Mak Marie Consults: 06/20/17 17:09 Consult Physician Stat Consulting Provider: Heaven Alves Consult Reason/Comments: Right femur fracture, med mgmt Do you want consulting provider notified?: Yes Primary care physician: Reyna Browning - Discharge Diagnosis(es) (1) Acute right hip pain Current Visit: Yes Status: Acute (2) Fracture, intertrochanteric, right femur Current Visit: Yes Status: Acute (3) Status post fall Current Visit: Yes Status: Acute Hospital Course: This is a 67-year-old female who is admitted to [facility] on 06/30/2017 after falling and sustaining injury to the right hip. On exam and x- ray in the emergency department he is found to have an intertrochanteric fracture of the right hip. He is admitted to our service for surgical intervention and care. Patient is taken to surgery for close reduction and insertion of intertrochanteric nail of the right hip. The procedure was performed without complication or sequelae. The patient is doing fairly well postoperatively. Vital signs and labs are stable on postoperative day #3. Patient is discharged to inpatient rehab in good condition. Please see med rec for accurate list of discharge medications. Patient Condition at Discharge: Stable Plan - Discharge Summary Discharge Rx Participant: Yes New Discharge Prescriptions: New traMADol HCl [Ultram] 50 mg PO Q6H PRN #90 tab PRN Reason: Pain Warfarin [Coumadin] 2.5 mg PO DAILY #30 tab No Action Gabapentin [Neurontin] 100 mg PO TID Venlafaxine HCl ER [Effexor XR] 75 mg PO DAILY Glatiramer Acetate [Copaxone] 40 mg SQ MOWEFR Baclofen [Lioresal] 10 mg PO DAILY amLODIPine [Norvasc] 2.5 mg PO DAILY Simvastatin [Zocor] 20 mg PO HS Omeprazole 40 mg PO DAILY Ascorbic Acid [Vitamin C] 500 mg PO DAILY Ubidecarenone [Co Q-10] 100 mg PO DAILY [place]-3 Fatty Acids/Fish Oil [Fish Oil 1,000 mg Softgel] 1 each PO DAILY Multivit-Min/Iron/Folic/Lutein [Centrum Silver Women Tablet] 1 each PO DAILY Glucosamine/Chondr Dinh A Sod [Osteo Bi-Flex Caplet] 1 each PO DAILY Biotin 5,000 mcg PO BID Aspirin [Adult Low Dose Aspirin EC] 81 mg PO DAILY Cat's Claw 500 mg PO DAILY Alpha Lipoic Acid 50 mg PO DAILY Discharge Medication List Gabapentin [Neurontin] 100 mg PO TID 06/15/16 [History] Glatiramer Acetate [Copaxone] 40 mg SQ MOWEFR 06/15/16 [History] Venlafaxine HCl ER [Effexor XR] 75 mg PO DAILY 06/15/16 [History] Alpha Lipoic Acid 50 mg PO DAILY 06/20/17 [History] Ascorbic Acid [Vitamin C] 500 mg PO DAILY 06/20/17 [History] Aspirin [Adult Low Dose Aspirin EC] 81 mg PO DAILY 06/20/17 [History] Baclofen [Lioresal] 10 mg PO DAILY 06/20/17 [History] Biotin 5,000 mcg PO BID 06/20/17 [History] Cat's Claw 500 mg PO DAILY 06/20/17 [History] Glucosamine/Chondr Dinh A Sod [Osteo Bi-Flex Caplet] 1 each PO DAILY 06/20/17 [ History] Multivit-Min/Iron/Folic/Lutein [Centrum Silver Women Tablet] 1 each PO DAILY 12/30 [History] [place]-3 Fatty Acids/Fish Oil [Fish Oil 1,000 mg Softgel] 1 each PO DAILY [History] Omeprazole 40 mg PO DAILY 06/20/17 [History] Simvastatin [Zocor] 20 mg PO HS 06/20/17 [History] Ubidecarenone [Co Q-10] 100 mg PO DAILY 06/20/17 [History] amLODIPine [Norvasc] 2.5 mg PO DAILY 06/20/17 [History] Warfarin [Coumadin] 2.5 mg PO DAILY #30 tab 06/24/17 [Rx] traMADol HCl [Ultram] 50 mg PO Q6H PRN #90 tab 06/24/17 [Rx] Follow up Appointment(s)/Referral(s): [facility], [NON-STAFF] - Mak Marie MD [STAFF PHYSICIAN] - 07/09/17 1:45 pm ( ) Reyna Browning DO [Primary Care Provider] - 06/30/17 4:30 pm Ambulatory/Diagnostic Orders: Prothrombin Time INR [LAB.AMB] Location: Determined By Patient Activity/Diet/Wound Care/Special Instructions: 1. Remain toe-touch weightbearing only on the right lower extremity 2. Keep dressing over the right hip clean, dry, intact 3. Patient may shower without a dressing over the surgical sites if incision sites continue remain clean and dry without active drainage over 72 hours 4. May use a walker to aid and ambulation as needed 5. Take medications as prescribed Discharge Disposition: HOME WITH HOME HEALTH SERVICES
--- NOTE | 2017-06-24 13:14 | P.PN ---
Subjective Progress Note Date: 06/24/17 Montserrat Maradiaga is a 67-year-old female, patient of Dr. Reyna Browning who is presented to [facility] emergency department after sustaining a fall and complaining of right hip pain. Patient states she was outside walking her dogs when she slipped and fell on the ice landing on her buttocks. She had severe pain and was unable to ambulate. She was found to have a right intertrochanteric hip fracture. She was admitted to Dr. Marie service, medical consultation was requested for surgical clearance and medical management while hospitalized. Patient has a known history of multiple sclerosis for many years for that she is maintained on Copaxone, Neurontin and baclofen patient also has known history of depression well-controlled on Effexor and history of hyperlipidemia maintained on simvastatin otherwise she denies any past medical history and specific she denies any history of coronary artery disease congestive heart failure she denies any episodes of angina or chest pain, she denies any history of asthma or emphysema, she smokes 1 pack per day but she states she was never diagnosed with COPD. Past surgical history significant for only one surgery in 1967 for right ovarian cyst she denies having any reaction to any anesthesia medications. 06/23/2017 status post right intramedullary nail fixation for right intratrochenteric hip fracture postop day #2. Patient is sitting up at bedside chair. She had a low-grade temp of 100.6 yesterday and 99.3 this morning. WBC has shown improvement from 14.9-13. Urinalysis has not been collected yet. She denies any diarrhea. She denies any burning with urination. Denies any cough. Denies any chest pain or shortness of breath. An incision site is clean dry and intact. Patient is also having hallucinations. She is seeing birds that are not there. This started yesterday. She is alert and orientated to 3. She is communicating appropriately and talking to her . 06/24/2017 patient has had no fevers for 24 hours. She was found have evidence of a urinary tract infection and his been placed on Cipro. Patient still had some hallucinations during the evening she was seeing birds. This is likely related to pain medications. Patient has been cleared by orthopedics for discharge. Her white count has improved. Her hemoglobin is up to 9. INR is 3.1. Patient denies any chest pain or shortness of breath. Denies a nausea vomiting. She is passing gas no bowel movement yet. Denies any burning with urination Objective - Vital Signs Vital signs: Vital Signs Temp 98.3 F 06/24/17 09:30 Pulse 91 06/24/17 09:30 Resp 20 06/24/17 09:30 BP 108/69 06/24/17 09:30 Pulse Ox 97 06/24/17 09:30 Intake & Output 06/23/17 06/24/17 06/24/17 18:59 06:59 18:59 Intake Total 240 Balance 240 Weight 55.792 kg Intake: Oral 240 Other: Voiding Method Toilet Toilet # Voids 2 - Exam Head normocephalic Neck supple Lungs diminished bilaterally Heart regular rate and rhythm S1-S2, no rub or gallop Abdomen is soft nontender nondistended positive bowel sounds no hepatosplenomegaly Extremities no edema. Right hip incision site is clean dry and intact Neuro alert and orientated to 3 - Labs CBC & Chem 7: 06/24/17 06:57 06/24/17 06:57 Labs: Abnormal Lab Results - Last 24 Hours (Table) 06/24/17 06/24/17 06/24/17 Range/Units 06:57 06:57 06:57 RBC 2.84 L (3.80-5.40) m/uL Hgb 9.0 L (11.4-16.0) gm/dL Hct 26.8 L (34.0-46.0) % PT 28.0 H (9.0-12.0) sec INR 3.1 H (<1.2) AST 84 H (14-36) U/L ALT 54 H (9-52) U/L Total Protein 5.7 L (6.3-8.2) g/dL Albumin 3.3 L (3.5-5.0) g/dL Assessment and Plan Assessment: #1 Fall with right intertrochanteric hip fracture. Status post right intramedullary nail fixation for right intertrochanteric hip fracture post operative day #3. On Coumadin for DVT prophylaxis. INR is 3.1. Recommend no Coumadin tonight. Continue to monitor PT/INR outpatient setting #2 underlying history of multiple sclerosis #3 underlying history of hyperlipidemia #4 underlying history of depression #5 UTI likely contributing to the low-grade fever and leukocytosis. Patient started on Cipro. She is remained afebrile white count has normalized. Continue Cipro 250 mg twice a day for 3 days #6 expected acute blood loss anemia secondary to surgery. Start patient on ferrous sulfate. Hemoglobin 9.0 at discharge. #7 hallucinations likely related to pain medications as well as the hospital environment. Judsonia discontinued. She's been given a prescription for Ultram. #8 mildly elevated LFTs likely related to her statin and Judsonia. Both medications as been discontinued. Recommend checking LFTs in 1 week GI prophylaxis Protonix Patient is medically stable for discharge. We'll follow-up with her PCP in 1 week. Recommend checking CBC and LFTs in 1 week I performed an examination of the patient and discussed their management with the physician Dry Kiln Worker. I have reviewed the Physician Dry Kiln Worker's notes and agree with the documented findings and plan of care
[2017-06-24 15:19] VITALS: BP 109/65; PULSE 96; RESP 16
[2017-06-24] MEDS: traMADol 50 MG TAB PO PRN (17:34)
== END 2017-06-24 19:33 | disposition home health service (06) | DRG 481 ==
LOC: EC 14:19 → 3SUR 17:01
PROVIDERS: ADMIT Orthopaedic Surgery; ATTEND Orthopaedic Surgery
PROC: 0QS636Z Reposition Right Upper Femur with Intramedullary Internal Fixation Device, Percutaneous Approach (ICD-10-PCS; principal; 2017-06-21 13:00)
DX: S72.141A Displaced intertrochanteric fracture of right femur, initial encounter for closed fracture (principal); D62 Acute posthemorrhagic anemia; N39.0 Urinary tract infection, site not specified; R44.3 Hallucinations, unspecified; G35 Multiple sclerosis; E78.5 Hyperlipidemia, unspecified; F17.210 Nicotine dependence, cigarettes, uncomplicated; F32.9 Major depressive disorder, single episode, unspecified; R11.0 Nausea; R79.89 Other specified abnormal findings of blood chemistry; I10 Essential (primary) hypertension; K21.9 Gastro-esophageal reflux disease without esophagitis; T39.1X5A Adverse effect of 4-Aminophenol derivatives, initial encounter; Z79.82 Long term (current) use of aspirin; Z79.899 Other long term (current) drug therapy; Z88.1 Allergy status to other antibiotic agents; Z88.2 Allergy status to sulfonamides; W00.0XXA Fall on same level due to ice and snow, initial encounter; Y93.K1 Activity, walking an animal; Y92.9 Unspecified place or not applicable; Y92.239 Unspecified place in hospital as the place of occurrence of the external cause
CPT/HCPCS: 36415; 51702; 71045; 73502; 80048; 80053; 81001; 81003; 85025; 85610; 85730; 93005; 96361; 96374; 96375; 96376; 99285

== ENCOUNTER → 2017-12-29 | Outpatient (CLI) | payer MEDICARE ==
[2017-12-29 19:23] LABS: Vitamin D 25 Hydroxy 41.1 ng/mL (30.0-100.0)
[2017-12-30 09:18] LABS: Lyme IgG/IgM 0.7 Index
== END | disposition home or self-care (01) ==
LOC: LABWHC1 12:31
PROVIDERS: ATTEND Psychiatry & Neurology Neurology
DX: G35 Multiple sclerosis (principal); M62.838 Other muscle spasm; M81.0 Age-related osteoporosis without current pathological fracture; A69.20 Lyme disease, unspecified
CPT/HCPCS: 36415; 82306; 82310; 86618

== ENCOUNTER → 2018-01-21 | Outpatient (CLI) | payer MEDICARE ==
--- NOTE | 2018-01-21 14:24 | MR ---
EXAMINATION TYPE: MR brain wo/w con DATE OF EXAM: 01/21/2018 COMPARISON: No prior MRI brain. CT brain 06/15/2016 HISTORY: MS CONTRAST: Performed utilizing 6.5 mL intravenous Gadavist gadolinium contrast. TECHNIQUE: Multiplanar, multisequence imaging of the brain is performed on a 3.0 Nae magnet. Demye linating disease protocol with additional Sagittal Flair sequence is performed. Study is performed wi thin 24 hours of arrival to the hospital. FINDINGS: T2 White Matter Lesions Present : Yes Approximate Number of Lesions: Multiple scattered, extensive Locations Identified : Periventricular subcortical, centrum semiovale Size of Largest Lesion(s): 1. 0.5 x 0.6 x 0.8 cm. Location: Right periventricular corpus callosum Sequence 501 Image 22 (axial) and Sequence 601 Image 20 (sagittal). 2. Ill-defined 0.5 x 1.9 x 1.1 cm. Location: Right eubanks radiata Sequence 501 Image 21 (axial) and Sequence 601 Image 24 (sagittal). Enhancing Lesion(s) Present: No Change from Prior: No comparison MRI. Note is made of a venous angioma within the right eubanks radiata posteriorly Diffusion-weighted imaging is performed. No abnormal hyperintensity is present to suggest an acute i ntracranial infarct or acute ischemic change. Ventricles and sulci are appropriate for the patient age. There are no abnormal extra-axial fluid collections. The ventricular system and cisternal spaces are normal in size and appearance. The brain volume is age appropriate. The craniocervical junction lc ears within normal limits. The dural venous sinuses appear patent. No abnormal enhancement is present on post contrast images. . The visualized sinuses are clear. Visu alized orbits are unremarkable. IMPRESSION: 1. Multiple bilateral scattered white matter changes can be compatible with multiple sclerosis.
== END ==
LOC: RADMRIMAIN 08:08
PROVIDERS: ATTEND Psychiatry & Neurology Neurology
DX: R90.89 Other abnormal findings on diagnostic imaging of central nervous system (principal)
CPT/HCPCS: 82565; 70553; A9581

== ENCOUNTER → 2020-02-18 | Outpatient (CLI) | payer MEDICARE ==
--- NOTE | 2020-02-18 14:46 | CTL ---
EXAMINATION TYPE: CT Low Dose Lung DATE OF EXAM ORDERED: 02/18/2020 HISTORY: Personal history of tobacco use. Lung cancer screening CT DLP: 44.[address] CTDI: 1.40 mGy Automated exposure control for dose reduction was used. SCREENING VISIT: Yes COMPARISON: None TECHNIQUE: Low dose computed tomography scan was performed through the chest at 1 mm thick sections a nd reconstructed images in the coronal plane at [address] DIAGNOSTIC QUALITY: Satisfactory. The posterior inferior costophrenic angles of the bilateral lung s are not included on imaging. FINDINGS: LUNG NODULES: Present, detailed below: 3 mm solid pulmonary nodule of the left upper lobe apex (12:17), versus pleural thickening. LUNGS: COPD: Severity: Mild Fibrosis: Severity: None Lymph nodes: None Other findings: None RIGHT PLEURAL SPACE: Effusion: None Calcification: None Thickening: Minimal apical Pneumothorax: None LEFT PLEURAL SPACE: Effusion: None Calcification: None Thickening: Minimal apical Pneumothorax: None HEART: Heart Size: Normal Coronary calcification: Mild Pericardial effusion: None OTHER FINDINGS: Upper abdomen: None Bony thorax: Increased thoracic kyphosis, degenerative change of the spine Supraclavicular region: None Other: Ascending thoracic aortic ectasia measures up to 3.7 cm IMPRESSION: Left upper lobe 3 mm solid pulmonary nodule versus pleural thickening. FOLLOW UP CT CHEST RECOMMENDATION: Follow up annual low-dose lung CT CT LUNG RAD: Lung-Rad 2 Benign Appearance or Behavior
== END | disposition home or self-care (01) ==
LOC: RADCTMAIN 07:43
PROVIDERS: ATTEND Family Medicine
DX: Z12.2 Encounter for screening for malignant neoplasm of respiratory organs (principal); R91.1 Solitary pulmonary nodule; F17.210 Nicotine dependence, cigarettes, uncomplicated

== ENCOUNTER → 2020-07-20 | Outpatient (CLI) | payer MEDICARE ==
--- NOTE | 2020-07-20 12:54 | MR ---
EXAMINATION TYPE: MR lumbar spine wo con DATE OF EXAM: 07/20/2020 COMPARISON: 06/18/2012 HISTORY: Low back pain into annie legs TECHNIQUE: T1 and T2 axial and sagittal images of the lumbar spine are submitted. FINDINGS: There is no abnormal signal seen within the visualized spinal cord or paraspinal soft tissu es. Chronic appearing endplate deformity and Schmorl's node T12. At L1-2 there is mild hypertrophic change of the facets. No evidence of foraminal encroachment. Mild disc desiccation. No disc herniation or canal stenosis At L2-3 there is diffuse circumferential disc bulging with hypertrophic change of the facet joints an d ligamentum flavum. Mild bilateral foraminal encroachment. Borderline central stenosis. At L3-4 there is disc desiccation with hypertrophy of the facets and ligamentum flavum and broad-base d disc bulging. Borderline to mild central stenosis with mild to moderate bilateral foraminal encroac hment. At L4-5 there is broad-based disc bulging with mild effacement of thecal sac. Hypertrophic change of the facets and ligamentum flavum noted. Mild to moderate bilateral foraminal encroachment. Borderline canal stenosis At L5-S1 there is a focal central broad-based disc protrusion. There is facet arthropathy. Mild bilat eral foraminal encroachment. Small Tarlov cyst incidentally noted at the S2 level. Tiny synovial cyst measuring 2 mm related to the right facet joint posteriorly. IMPRESSION: 1. Mild multilevel degenerative disc disease. Disc bulging at L2-3, L3-4 and L4-5 with mild effacemen t of thecal sac and bilateral foraminal encroachment. 2. Broad-based central disc bulging or small broad-based protrusion with mild effacement of thecal sa c L5-S1. Advanced facet arthropathy contributes to foraminal encroachment with borderline central jesús nosis.
== END | disposition home or self-care (01) ==
LOC: RADMRIMAIN 08:32
PROVIDERS: ATTEND Physician Assistant
DX: M48.061 Spinal stenosis, lumbar region without neurogenic claudication (principal); M51.16 Intervertebral disc disorders with radiculopathy, lumbar region; M51.17 Intervertebral disc disorders with radiculopathy, lumbosacral region; M47.26 Other spondylosis with radiculopathy, lumbar region
CPT/HCPCS: 72148

== ENCOUNTER → 2020-08-16 | Outpatient (CLI) | payer MEDICARE ==
[2020-08-16 08:45] VITALS: BP 148/88; PULSE 66; RESP 16; TEMP 97.5
--- NOTE | 2020-08-16 08:54 | P.PAINCN ---
History of Present Illness - Reason for Consult Consult date: 08/16/20 - History of Present Illness This is a 70-year-old patient [facility] with a chief complaint of chronic pain in the low back. She has a history of MS (not on steroids) and right hip fracture repair (with instrumentation). Paz complaint is right low back pain with radiation into the anterior leg all the way down to the foot. She also has lateral right leg pain. Describes the pain as sharp and shooting and she feels overall complete numbness in her right foot. Pain is alleviated by sitting down or taking Motrin. Exacerbated by arising from a seated position or standing for too long. Has some weakness associated with the right leg. Pain currently is 7 out of 10, is worse at 10 out of 10, at its best a 5 out of 10. In regards to management she has not done physical therapy or had any pain injections in the past. She takes takes about 600 mg of Motrin a day and was recently prescribed tramadol, however she is leery of taking it given she says she is sensitive to that type of medication. Patient denies adverse drug effects from medications. Patient also denies new- onset weakness, bowel/bladder incontinence, or any other signs or symptoms of cauda equina syndrome. There are no signs of acute intoxication, and no indications of medication diversion or overuse. In addition to above, 13-point review of systems is also negative for chest pain, shortness of breath, changes in vision, changes in hearing, new onset weakness, abdominal pain, diarrhea, extreme fatigue, malaise, fever, skin changes, homicidal or suicidal ideation, or bowel or bladder incontinence. Physical exam: Vital Signs: Reviewed in EMR GENERAL: Well appearing, in no acute distress PSYCH: Mood and affect is appropriate. Awake, alert, and oriented SKIN: Skin color, texture, turgor normal, no rashes or lesions HEENT: Normocephalic, atraumatic. EOM intact CV: No pedal edema RESP: Respirations are unlabored, no audible wheezing GI: Abdomen non-distended MUSCULOSKELETAL: Bilateral upper and lower extremity strength is normal and symmetric. No atrophy or tone abnormalities are noted. Lumbar spine: Straight leg raising in the sitting position is positive for pain in right low back. No pain to palpation over the lumbar spine and paraspinous muscles. Negative for pain with facet loading and back extension/rotation. Difficulty heel walking especially with right foot Normal range of motion without pain reproduction Buttocks: No pain to palpation over the PSIS, Demetra test is negative Extremities: Peripheral joint ROM is full and pain free without obvious instability or laxity in all four extremities. No edema or skin discolorations noted. Gait: Gait is antalgic favoring right side NEUR:Patellar reflex 1+ on right sideNegative clonus. No loss of sensation is noted. Cranial nerves are grossly intact. Imaging: Lumbar MRI 07/20/20 Reviewing the lumbar MRI there is multilevel degenerative disc disease throughout the lumbar spine specifically at L2-L3, L3-L4, L4-L5. At the same levels there is disc bulging with mild effacement of the thecal sac and bilateral foraminal foraminal encroachment, most prominent at L3-L4 and L4-L5 root is moderate bilaterally. At L5-S1 there is a focal central broad-based disc protrusion with effacement of the thecal sac. 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 Assessment: 1. Lumbar disc protrusion 2. Lumbar degenerative disc disease 3. Lumbar facet arthropathy Plan: 1. Explanation: Diagnoses, prognoses, and multiple treatment options including but not limited to physical therapy, interventional therapies, medication management and surgery were discussed with the patient and all questions were answered to the patient's satisfaction. 2. Investigations: None 3. Counseling: The patient was counseled for 3 minutes on, EXERCISE. Specifically, the patient was instructed regarding the importance of exercise in the context of both chronic pain and overall health. She is very active in general likes to walk. Would like to get back to more activity. 4. Procedures: MRI is relatively benign, however there is some mild to moderate neural foraminal stenosis at L3-L4 and L4-L5. We'll perform right-sided L3-L4 and L4-L5 transforaminal epidural steroid injections. Patient is wondering if the pain is coming from her hip or her back, I told her this injection will help us determine where the majority of her pain may be coming from 5. Consultations: None 6. Medications: As asked me about how much Motrin she can take per day. I did, that given her age we would want to decrease the dose to limit any kidneys funct ion or peptic ulcer disease. I mentioned that taking up to 1600 mg in a day is all right, if she starts to feels any stomach pain she should decrease the dose. 7. Disposition: For above procedure, I would not use local anesthetic given her history of MS. I have spent 50 minutes on patient care today. The time was used to review the medical records including relevant urine studies and prescription history, review of the available imaging, evaluation and examination of the patient, coordination of care with medical staff and if applicable referring physicians, as well as creation of the medical record. Past Medical History Additional Past Medical History / Comment(s): lyme disease, ms History of Any Multi-Drug Resistant Organisms: C-DIFF Year Discovered:: 10/24/2016 MDRO Source:: Stool Past Surgical History: Joint Replacement Additional Past Surgical History / Comment(s): Ovarian cyst removal,2 rods inserted rt femur Past Anesthesia/Blood Transfusion Reactions: No Reported Reaction Smoking Status: Current every day smoker - Past Family History Father Family Medical History: CVA/TIA Mother Family Medical History: No Reported History Medications and Allergies Home Medications Medication Instructions Recorded Confirmed Type Gabapentin [Neurontin] 100 mg PO HS 06/15/16 08/14/20 History Glatiramer Acetate [Copaxone] 40 mg SQ MOWEFR 06/15/16 08/14/20 History Ascorbic Acid [Vitamin C] 1,000 mg PO DAILY 06/20/17 08/14/20 History Baclofen [Lioresal] 10 mg PO DAILY PRN 06/20/17 08/14/20 History Biotin 5,000 mcg PO BID 06/20/17 08/14/20 History Glucosamine/Chondr Dinh A Sod [Osteo 1 each PO DAILY 06/20/17 08/14/20 History Bi-Flex Caplet] Multivit-Min/Iron/Folic/Lutein 1 each PO DAILY 06/20/17 08/14/20 History [Centrum Silver Women Tablet] Lee-3 Fatty Acids/Fish Oil [Fish 1 each PO DAILY 06/20/17 08/14/20 History Oil 1,000 mg Softgel] Ubidecarenone [Co Q-10] 300 mg PO DAILY 06/20/17 08/14/20 History Aspirin 81 mg PO DAILY 08/14/20 08/14/20 History DULoxetine HCL [Cymbalta] 60 mg PO DAILY 08/14/20 08/14/20 History Simvastatin [Zocor] 20 mg PO DAILY 08/14/20 08/14/20 History Allergies Allergy/AdvReac Type Severity Reaction Status Date / Time cefuroxime AdvReac Diarrhea Verified 08/14/20 14:52 Sulfa (Sulfonamide AdvReac Vomiting Verified 08/14/20 14:52 Antibiotics) PQRS Measure Charge Sheet PQRS Narrative: Smoking Status Current every day smoker Scale Used Numeric (1 - 10) Hx Alcohol Use (MH) No Home Medications: Ambulatory Orders Gabapentin [Neurontin] 100 mg PO HS 06/15/16 Glatiramer Acetate [Copaxone] 40 mg SQ MOWEFR 06/15/16 Ascorbic Acid [Vitamin C] 1,000 mg PO DAILY 06/20/17 Baclofen [Lioresal] 10 mg PO DAILY PRN 06/20/17 Biotin 5,000 mcg PO BID 06/20/17 Glucosamine/Chondr Dinh A Sod [Osteo Bi-Flex Caplet] 1 each PO DAILY 06/20/17 Multivit-Min/Iron/Folic/Lutein [Centrum Silver Women Tablet] 1 each PO DAILY 06/20/17 Lee-3 Fatty Acids/Fish Oil [Fish Oil 1,000 mg Softgel] 1 each PO DAILY 06/20/17 Ubidecarenone [Co Q-10] 300 mg PO DAILY 06/20/17 Aspirin 81 mg PO DAILY 08/14/20 DULoxetine HCL [Cymbalta] 60 mg PO DAILY 08/14/20 Simvastatin [Zocor] 20 mg PO DAILY 08/14/20
== END ==
LOC: PNWHC3 08:29
PROVIDERS: ATTEND Anesthesiology
DX: M51.36 Other intervertebral disc degeneration, lumbar region (principal); M51.26 Other intervertebral disc displacement, lumbar region; F17.200 Nicotine dependence, unspecified, uncomplicated
CPT/HCPCS: 99211

== ENCOUNTER → 2021-02-22 | Outpatient (CLI) | payer MEDICARE ==
--- NOTE | 2021-02-22 09:42 | CTL ---
EXAMINATION TYPE: CT Low Dose Lung DATE OF EXAM ORDERED: 02/22/2021 HISTORY: Long-term tobacco use. Lung cancer screening CT DLP: 45.[address] CTDI: 1.4 mGy Automated exposure control for dose reduction was used. SCREENING VISIT: First one after baseline COMPARISON: Prior low dose long screening CT February 18, 2020 TECHNIQUE: Low dose computed tomography scan was performed through the chest at 1 mm thick sections a nd reconstructed images in multiple planes at 1 mm and [address] DIAGNOSTIC QUALITY: Satisfactory FINDINGS: LUNG NODULES: Present, detailed below: There is elongated 5.3 x 3.7 mm nodule in the peripheral upper aspect right lower lobe axial image 11 8 stable in retrospect. Stable 2.5 mm left apical nodule axial image 22. LUNGS: COPD: Severity: Mild Fibrosis: Severity: Mild To moderate biapical redemonstrated Lymph nodes: No greater than 1 cm Other findings: None RIGHT PLEURAL SPACE: Effusion: None Calcification: None Thickening: None Pneumothorax: None LEFT PLEURAL SPACE: Effusion: None Calcification: None Thickening: None Pneumothorax: None HEART: Heart Size: Normal Coronary calcification: Moderate Pericardial effusion: None OTHER FINDINGS: Upper abdomen: None Bony thorax: Demineralization with mild to moderate spurring. Supraclavicular region: None Other: None IMPRESSION: Mild emphysematous change without new or enlarging greater than [address] LUNG RAD AND CT CHEST RECOMMENDATION: Lung-Rad 2 Benign Appearance or Behavior: Continue annual sc reening with LDCT in 12 months. S Modifier (other clinically significant findings): None
== END | disposition home or self-care (01) ==
LOC: RADCTMAIN 08:31
PROVIDERS: ATTEND Family Medicine
DX: Z12.2 Encounter for screening for malignant neoplasm of respiratory organs (principal); J43.9 Emphysema, unspecified; R91.8 Other nonspecific abnormal finding of lung field
CPT/HCPCS: 71271

== ENCOUNTER → 2021-03-16 | Outpatient (CLI) | payer MEDICARE ==
[2021-03-16 23:01] LABS: Basophils # (A) 0.06 X 10*3/uL (0.00-0.10); Basophils % (A) 0.7 %; Eosinophils # (A) 0.13 X 10*3/uL (0.04-0.35); Eosinophils % (A) 1.5 %; HCT 33.7 % (37.2-46.3); HGB 10.7 g/dL (12.0-15.0); Lymphocytes # (A) 2.13 X 10*3/uL (0.90-5.00); Lymphocytes % (A) 23.9 %; MCHC 31.8 g/dL (32.0-37.0); MCV 97.7 fL (80.0-97.0); Mean Platelet Volume 10.9 fL (9.5-12.2); Monocytes # (A) 0.78 X 10*3/uL (0.20-1.00); Monocytes % (A) 8.7 %; Neutrophils % (A) 64.9 %; Platelet Count 290 X 10*3/uL (140-440); RBC 3.45 X 10*6/uL (4.10-5.20); RDW 13.3 % (11.5-14.5); WBC 8.93 X 10*3/uL (4.50-10.00)
[2021-03-17 01:38] LABS: Erythrocyte Sedimentation Rate 39 mm/Hr (0-30)
[2021-03-17 03:38] LABS: ALT 26 U/L (8-44); AST 35 U/L (13-35); African American GFR (CKD) 80.6 (60.0-200.0); BUN/Creat Ratio 16.02 Ratio (12.00-20.00); Blood Urea Nitrogen 13.6 mg/dL (9.0-27.0); Calcium 9.3 mg/dL (8.7-10.3); Carbon Dioxide 24.9 mmol/L (20.0-27.5); Chloride 103 mmol/L (96-109); Creatine Kinase 219 U/L (26-186); Glucose 75 mg/dL (70-110); Non-African American GFR(CKD) 69.5 (60.0-200.0); Potassium 4.4 mmol/L (3.5-5.5); Sodium 140 mmol/L (135-145)
[2021-03-17 03:47] LABS: C Reactive Protein <0.30 mg/dL (0.00-0.80)
[2021-03-17 03:49] LABS: Rheumatoid Factor, Qnt <10 IU/mL (0-15)
[2021-03-17 11:20] LABS: HLA B27 POSITIVE
[2021-03-19 09:50] LABS: Angiotensin-1 Converting Enz. 64 U/L (8-52)
== END | disposition home or self-care (01) ==
LOC: LABWHC1 12:04
PROVIDERS: ATTEND Orthopaedic Surgery
DX: Z09 Encounter for follow-up examination after completed treatment for conditions other than malignant neoplasm (principal); M16.11 Unilateral primary osteoarthritis, right hip; M47.25 Other spondylosis with radiculopathy, thoracolumbar region; M90.551 Osteonecrosis in diseases classified elsewhere, right thigh; G35 Multiple sclerosis
CPT/HCPCS: 86812; 84439; 80048; 85652; 82550; 82164; 84443; 84450; 84460; 84550; 85025; 86140; 86431; 83520 ×2; 82306; 86038; 86200; 36415; G0480; 80323

== ENCOUNTER → 2021-05-18 | Outpatient (CLI) | payer MEDICARE | END | disposition home or self-care (01) | LOC: LABPAT 13:10 | PROVIDERS: ATTEND Orthopaedic Surgery | DX: Z01.812 Encounter for preprocedural laboratory examination (principal); Z22.322 Carrier or suspected carrier of Methicillin resistant Staphylococcus aureus | CPT/HCPCS: 87070 ==

== ENCOUNTER → 2021-06-21 | Outpatient (CLI) | payer MEDICARE ==
[2021-06-21 19:35] LABS: African American GFR (CKD) 74.6 (60.0-200.0); Anion Gap 11.7 mmol/L (10.00-18.00); BUN/Creat Ratio 12.22 Ratio (12.00-20.00); Calcium 9.6 mg/dL (8.7-10.3); Carbon Dioxide 26.3 mmol/L (20.0-27.5); Non-African American GFR(CKD) 64.3 (60.0-200.0); Potassium 4.5 mmol/L (3.5-5.5)
[2021-06-21 19:36] LABS: Basophils # (A) 0.06 X 10*3/uL (0.00-0.10); Basophils % (A) 0.8 %; Eosinophils % (A) 1.3 %; HGB 11.3 g/dL (12.0-15.0); Immature Grans, Automated 0.3 %; Lymphocytes # (A) 1.71 X 10*3/uL (0.90-5.00); Lymphocytes % (A) 21.8 %; MCH 30.6 pg (27.0-32.0); MCHC 31.4 g/dL (32.0-37.0); MCV 97.6 fL (80.0-97.0); Monocytes # (A) 0.56 X 10*3/uL (0.20-1.00); Monocytes % (A) 7.1 %; NRBC Per 100 WBC 0 /100 WBCS (0.0-0.0); Neutrophils # (A) 5.41 X 10*3/uL (1.80-7.70); Neutrophils % (A) 68.7 %; Platelet Count 389 X 10*3/uL (140-440); RBC 3.69 X 10*6/uL (4.10-5.20); RDW 14.2 % (11.5-14.5); WBC 7.86 X 10*3/uL (4.50-10.00)
[2021-06-21 20:11] LABS: INR 0.94 (0.90-1.11); Prothrombin Time 10.7 sec (9.9-11.9)
== END | disposition home or self-care (01) ==
LOC: LABPAT 11:13
PROVIDERS: ATTEND Orthopaedic Surgery
DX: Z01.812 Encounter for preprocedural laboratory examination (principal); M16.11 Unilateral primary osteoarthritis, right hip
CPT/HCPCS: 80048; 85025; 85610

== ENCOUNTER 2021-07-03 05:59 | Inpatient (IN) | payer MEDICARE ==
[2021-06-28 16:22] VITALS: BMI 20.6
--- NOTE | 2021-07-02 09:18 | HP ---
HISTORY AND PHYSICAL CHIEF COMPLAINT: Right hip pain. HISTORY OF PRESENT ILLNESS: The patient is a 71-year-old retired female who presents with progressive right hip pain for the past several years. She underwent fixation of a fracture in the right hip on June 2017. She notes groin and thigh pain. It is worse with weightbearing activities. She notes she significantly is limited by this. She has been limping. She has tried medications, without much relief. PAST MEDICAL HISTORY: Significant for multiple sclerosis. PAST SURGICAL HISTORY: Significant for ovarian cyst removal, IM nailing of a right intertrochanteric femur fracture in addition to previous knee surgery. CURRENT MEDICATIONS: Baclofen, diclofenac, duloxetine, Motrin, Neurontin and simvastatin. ALLERGIES: SHE DENIES DRUG ALLERGIES. FAMILY HISTORY: Significant for liver disease. SOCIAL HISTORY: Significant for one-half pack per day tobacco use. REVIEW OF SYSTEMS: Sixteen-point review of systems otherwise reviewed and is noncontributory. PHYSICAL EXAMINATION: On examination, the patient is approximately 5 feet 5m 125 pounds of ectomorphic habitus. HEENT exam is nonfocal. Neck is supple. On examination of her right hip, passive motion: flexion 85 degrees, external rotation of the hip flexed 50 degrees, internal rotation 10 degrees with pain. Clinically she has 1 cm shortening of the right lower extremity compared to the left. Her distal neurovascular exam appears intact in the right lower extremity. AP and lateral views of the right hip obtained in the office show severe osteoarthrosis with some collapse of the lateral femoral head. Previous intertrochanteric intramedullary nailing is noted. IMPRESSION: 1. Right hip severe osteoarthrosis. 2. Status post trochanteric nailing, right intertrochanteric femur fracture, with irritating hardware. 3. History of multiple sclerosis. RECOMMENDATIONS: I talked to the patient at length regarding her condition on along with treatment options. At this point she is quite symptomatic and limited because of pain despite previous conservative measures. After thorough discussion, she opts to proceed with surgery. We will plan to proceed with removal of her right femoral nail along with conversion to a right total hip arthroplasty. Risks and benefits were discussed at length in layman's terms. MMODL / IJN: [id number] /
[~2021-07-03 05:59] MED LIST: ACETAMINOPHEN TAB 500 MG TAB PO PRN; MELOXICAM 7.5 MG TAB PO PRN; TRANEXAMIC ACID IN NACL,ISO-OS 1,000 MG in SALINE 1 100ML.BAG IVPB PRN
[2021-07-03] MEDS ORDERED: LIDOCAINE 1% (10MG/ML) FOR IV START INTRADERMA PRN (06:29)
[2021-07-03] MEDS ORDERED: LACTATED RINGERS 1,000 ML IV ONE ×2 (06:58→09:00)
[2021-07-03] MEDS ORDERED: fentaNYL (PF) 50 MCG/ML 2 ML AMP IV PRN (07:00)
[2021-07-03] MEDS: ONDANSETRON 4 MG/2 ML VIAL IVP ONE ×2 (07:10→15:13)
[2021-07-03] MEDS ORDERED: DEXAMETHASONE SOD PHOSPHATE 4 MG/ML 1 ML VIAL IVP ONE (07:13)
[2021-07-03] MEDS ORDERED: ROCURONIUM 10 MG/ML (5 ML VIAL) IV ONE (07:45)
[2021-07-03] MEDS ORDERED: NEOSTIGMINE 1 MG/ML 10 ML VIAL ONE (07:45)
[2021-07-03] MEDS ORDERED: PROPOFOL 10 MG/ML 20 ML VIAL IV ONE (07:45)
[2021-07-03] MEDS ORDERED: MIDAZOLAM 2 MG/2 ML VIAL ONE (07:45)
[2021-07-03] MEDS ORDERED: LIDOCAINE 1% INJ 10MG/ML (20 ML MDV) ONE (07:45)
[2021-07-03] MEDS ORDERED: TRANEXAMIC ACID IN NACL,ISO-OS 1,000 MG/100 ML BAG ONE (07:45)
[2021-07-03] MEDS ORDERED: GLYCOPYRROLATE 0.2 MG/ML 2 ML VIAL ONE (07:45)
[2021-07-03] MEDS ORDERED: fentaNYL (PF) 50 MCG/ML 2 ML AMP ONE (07:45)
[2021-07-03] MEDS ORDERED: PHENYLEPHRINE-0.9% NACL SYG 1,000 MCG/10 ML SYRINGE ONE (07:45)
[2021-07-03] MEDS ORDERED: ceFAZolin 1,000 MG in SODIUM CHLORIDE 0.9% 1,000 ML IRRIGATION ONE (08:22)
[2021-07-03] MEDS ORDERED: MAGNESIUM HYDROXIDE 2,400 MG/10 ML CUP PO PRN (09:48)
[2021-07-03] MEDS ORDERED: traMADol 50 MG TAB PO PRN (09:48)
[2021-07-03] MEDS ORDERED: HYDROcodone/APAP 5-325MG 1 EACH TAB PO PRN (09:48)
[2021-07-03] MEDS ORDERED: ACETAMINOPHEN TAB 325 MG TAB PO PRN (09:48)
[2021-07-03] MEDS ORDERED: HYDROcodone/APAP 7.5-325MG 1 EACH TAB PO PRN (09:48)
[2021-07-03] MEDS ORDERED: NALOXONE 0.4 MG/ML 1 ML VIAL IV PRN (09:48)
[2021-07-03] MEDS ORDERED: HYDROmorphone 0.5 MG/0.5 ML SYRINGE IVP PRN (09:48)
[2021-07-03] MEDS ORDERED: ONDANSETRON 4 MG/2 ML VIAL IVP PRN (09:48)
--- NOTE | 2021-07-03 10:06 | P.OP ---
Date of Procedure: 07/03/21 Preoperative Diagnosis: Right hip severe osteoarthrosis/irritating hardware right hip Postoperative Diagnosis: Same Procedure(s) Performed: Right total hip arthroplastypress-fit/removal intramedullary nail right proximal femur Implants: Depuy Corail revision size 12 collared high offset press-fit femoral stem, 36+1.5 cobalt chrome femoral head, 54 mm Calvert acetabular shell with neutral polyethylene liner. Anesthesia: GETA Surgeon: Joseph Jones Slumber Room Attendant #1: Bo Cisneros Slumber Room Attendant #2: Krishna Craig Estimated Blood Loss (ml): 200 Pathology: other (Femoral head) Condition: stable Disposition: PACU Indications for Procedure: The patient's a 71-year-old female who previously underwent trochanteric intramedullary nailing of a right intertrochanteric femur fracture presents with progressive right hip pain secondary osteoarthrosis despite conservative measures. A discussion of the risks and benefits of operative intervention versus continued conservative measures was made with patient. She opted to proceed with surgery. Operative risks to include infection, neurovascular injury, development of blood clots, possible fracture, leg length discrepancy, possible instability and need for subsequent procedures was discussed. Informed consent was obtained. Operative Findings: As below Description of Procedure: The patient was brought to the operating room, and after induction of spinal anesthesia was placed in a lateral decubitus position. The bony prominences were appropriately padded. The pelvis was stable perpendicular to the floor with a pegboard. The right lower extremity was prepped and draped in normal fashion. A 12 cm incision was then made centered over the greater trochanter extending superiorly to level the ASIS and distally in line with the femoral shaft. The skin and subcutaneous tissues were divided sharply. Electrocautery was used for hemostasis. The fascia tyler and gluteus fela fascia was split in line with the skin incision. The muscle fibers were bluntly dissected proximally. A self-retaining retractor was placed. The anterior and posterior margins of the gluteus medius muscles identified and the anterior two thirds was detached from the greater trochanter with electrocautery. The gluteus minimus tendon was identified and detached in a similar fashion. A wide capsulotomy was performed. The hip was gently dislocated. The helical blade was removed from the nail with the appropriate extraction device. The distal locking screw was removed. The nail was then removed. The femoral neck cut was made approximately 1 cm above the level of the lesser trochanter at a 45 angle to the shaft. The head was then extracted with a corkscrew. Attention was then paid towards preparing the acetabular. Anterior and posterior retractors were placed. The remaining capsular labral tissues debrided sharply clearly defining the acetabular margins. Began reaming with a 47 mm reamer taking care to initially medialize, then reaming at 45 of abduction and 20 of anteversion. Sequential reaming is performed up to 53 mm. This was down to bleeding bony surface. A trial 54 mm acetabular shell was inserted at 45 of abduction and 20 of anteversion. This was fully seated. There was good rim fit and stability. A neutral polyethylene liner was then impacted. Care taken to sherrie id any soft tissue interposition. Attention was then paid towards preparing the proximal femur. A box chisel was used to open the metaphyseal region. A canal finder was used to find the femoral canal. Sequential broaching was performed up to a size 12. This is placed in 15 of anteversion with the leg perpendicular floor judging off the trans-epicondylar axis. There is good rotational stability. A calcar mill was used to fashion the medial calcar. A trial high offset neck along with a 36 mm + 1.5 trial head was placed. The hip was gently reduced. It was taken through range of motion. I felt to be stable in flexion and extension with internal and external rotation. I felt there was adequate baptism of soft tissue tension. The hip was gently dislocated. The trial components removed. Pulsatile lavage was utilized. The final size 12 high offset revision collared femoral stem was inserted again with the leg perpendicular to the floor in 15 of anteversion. Again there was good rotational stability. A 36 mm + 1.5 cobalt chrome femoral head was gently impacted. The hip was gently reduced. Again it was taken through motion and felt to be stable in flexion and extension with internal and external rotation. Pulsatile lavage was again utilized. With the leg in abduction the gluteus minimus and medius tendons reattached to the greater trochanter with #2 Ethibond suture. There was minimal drainage therefore a deep drain was not placed. The fascia tyler and gluteus fela fascia was closed with #2 Ethibond suture. The subcutaneous tissues were reapproximated interrupted 2-0 Vicryl sutures. The skin was reapproximated with 3-0 subcuticular strata fix suture. Skin tape and adhesive was applied. A sterile dressing was applied. The patient was awoken from sedation and transferred to recovery room in good condition. Blood loss was estimated 200 mL. No complications were incurred. Sponge and needle counts were correct in the case. Balwinder CRAFT /Bo CRAFT assisted during the major composes case to include exposure, implantation, and closure.
[2021-07-03] MEDS ORDERED: HYDROmorphone 0.5 MG/0.5 ML SYRINGE IVP ONE ×2 (10:13→10:50)
--- NOTE | 2021-07-03 10:19 | XR ---
EXAMINATION TYPE: XR Hip Limited RT DATE OF EXAM: 07/03/2021 COMPARISON: NONE HISTORY: Postop TECHNIQUE: One view submitted. FINDINGS: There is postsurgical change in near anatomic alignment. There is soft tissue edema and emphysema. IMPRESSION: 1. Postoperative change. Appears in near-anatomic alignment.
[2021-07-03] MEDS ORDERED: KETOROLAC 15 MG/ML 1 ML VIAL IVP ONE (10:38)
[2021-07-03] MEDS: LACTATED RINGERS 1,000 ML IV SCH (15:13)
[2021-07-03] MEDS ORDERED: DULoxetine HCL 60 MG CAPSULE.DR PO SCH (21:00)
[2021-07-03] MEDS ORDERED: ATORVASTATIN 10 MG TAB PO SCH (21:00)
[2021-07-03] MEDS ORDERED: SENNOSIDES-DOCUSATE SODIUM 1 EACH TAB PO SCH (21:00)
[2021-07-03] MEDS ORDERED: GABAPENTIN 100 MG CAP PO SCH (21:00)
[2021-07-04 07:16] VITALS: BP 91/54; PULSE 90; TEMP 98.6
[2021-07-04] MEDS: LACTATED RINGERS 1,000 ML IV SCH (07:18)
[2021-07-04 08:28] LABS: Basophils % (A) 0 %; Eosinophils % (A) 0 %; HGB 8.2 gm/dL (11.4-16.0); Lymphocytes # (A) 1.2 k/uL (1.0-4.8); Lymphocytes % (A) 12 %; MCH 31.5 pg (25.0-35.0); MCHC 31.6 g/dL (31.0-37.0); MCV 99.6 fL (80.0-100.0); Mean Platelet Volume 8.4; Monocytes # (A) 0.9 k/uL (0-1.0); Monocytes % (A) 9 %; Neutrophils # (A) 8.1 k/uL (1.3-7.7); Neutrophils % (A) 78 %; Platelet Count 255 k/uL (150-450); RBC 2.61 m/uL (3.80-5.40); RDW 14.1 % (11.5-15.5); WBC 10.5 k/uL (3.8-10.6)
[2021-07-04] MEDS ORDERED: MECLIZINE 12.5 MG TAB PO SCH (09:00)
[2021-07-04] MEDS ORDERED: ASPIRIN 81 MG PO SCH (09:00)
[2021-07-04] MEDS ORDERED: MULTIVITAMINS, THERA 1 EACH TAB PO SCH (09:00)
[2021-07-04] MEDS ORDERED: TURMERIC ROOT EXTRACT 1053 MG PO SCH (09:00)
[2021-07-04] MEDS ORDERED: ASCORBIC ACID 500 MG TAB PO SCH (09:00)
[2021-07-04] MEDS ORDERED: NON FORMULARY DRUG (Glucosamine/Chondr Su A Sod [Osteo Bi-Flex Caplet] 1 EACH Tablet) PO SCH (09:00)
[2021-07-04] MEDS ORDERED: NON FORMULARY DRUG (Ubidecarenone [Co Q-10] 100 MG Capsule) PO SCH (09:00)
[2021-07-04] MEDS ORDERED: Glatiramer Acetate [Copaxone] 40 MG/ML Syringe SQ SCH (09:00)
[2021-07-04] MEDS ORDERED: NON FORMULARY DRUG (Omega-3 Fatty Acids/Fish Oil [Fish Oil 1,000 Mg Softgel] 1 EACH Capsul PO SCH (09:00)
[2021-07-04] MEDS ORDERED: RIVAROXABAN 10 MG TAB PO SCH (09:00)
[2021-07-04 09:20] VITALS: RESP 18
[2021-07-04] MEDS ORDERED: PANTOPRAZOLE 40 MG/10 ML VIAL IVP SCH (10:00)
--- NOTE | 2021-07-04 10:08 | P.PN ---
Subjective Progress Note Date: 07/04/21 Principal diagnosis: Right hip severe osteoarthrosis/irritating hardware right hip Patient was seen at bedside this morning resting comfortably lying semirecumbent in bed. Patient does have bulky dressing present over right hip. Patient says she has been up walking with assistance since surgery yesterday. Patient says she is having some pain over the right hip and denies any radiation of pain. Patient says she has not had bowel movement yet, however, patient says she has been passing gas. Patient says she does have a spouse at home who can help her out when she goes home. Patient says she does have a walker at home. Patient denies chest pain, fever, shortness breath, nausea, vomiting, change in vision, loss of bowel/bladder control. Objective - Vital Signs Vital signs: Vital Signs Temp 98.6 F 07/04/21 07:15 Pulse 90 07/04/21 07:15 Resp 17 07/04/21 07:15 BP 91/54 07/04/21 07:15 Pulse Ox 99 07/04/21 07:15 Intake & Output 07/03/21 07/04/21 07/04/21 18:59 06:59 18:59 Intake Total 2731 Output Total 200 Balance 2531 Weight 57.2 kg Intake: IV 1651 Oral 1080 Output: Estimated Blood Loss 200 Other: # Voids 0 2 # Bowel Movements 0 - Exam Right hip: Incision is clean, dry, and intact. The exofin fusion tape is in good condition. There is minimal soft tissue swelling and ecchymosis surrounding the medial and lateral aspects of the incision. Calf is soft, no tenderness with palpation. Plantar flexion, dorsiflexion, EHL, FHL are intact. Sensory exam to light touch throughout the extremity is intact, dorsal pedis pulses 2+. - Labs CBC & Chem 7: 07/04/21 07:57 Labs: Abnormal Lab Results - Last 24 Hours (Table) 07/04/21 Range/Units 07:57 RBC 2.61 L (3.80-5.40) m/uL Hgb 8.2 L (11.4-16.0) gm/dL Hct 26.0 L (34.0-46.0) % Neutrophils # 8.1 H (1.3-7.7) k/uL Assessment and Plan Assessment: Right hip severe osteoarthrosis/irritating hardware right hip Postoperative day 1 status post Right total hip arthroplastypress-fit/removal intramedullary nail right proximal femur Plan: 1. Right hip severe osteoarthrosis/irritating hardware right hip - surgery performed yesterday, 07/03/2021 - Right total hip arthroplastypress-fit/removal intramedullary nail right proximal femur. Patient stable at bedside this morning. Plan discharge home today with health services 2. Appreciate medical management 3. Pain management -Tylenol 650; tramadol; Dilaudid only if necessary 4. GI prophylaxis - senna 5. DVT prophylaxis - Xarelto 6. PT/OT - weightbearing as tolerated with walker 7. Encourage incentive spirometer use 8. Discharge planning - plan discharge home today with health services Time with Patient: Less than 30
--- NOTE | 2021-07-04 10:09 | P.DS ---
Providers Date of admission: 07/03/21 05:59 Expected date of discharge: 07/04/21 Attending physician: Joseph Jones Consults: 07/03/21 09:48 Consult Physician Routine Consulting Provider: Fritz Ruby Consult Reason/Comments: medical management Do you want consulting provider notified?: Yes Primary care physician: Fritz Ruby MD Hospital Course: Date of admission: 07/03/2021 Date of discharge: 07/04/2021 Admission diagnosis: Right hip severe osteoarthrosis/irritating hardware right hip Discharge diagnosis: Same Attending physician: Dr. Jones Surgical procedures: Right total hip arthroplastypress-fit/removal intramedullary nail right proximal femur Brief history: Patient is a 71-year-old female with a history of right hip severe osteoarthrosis with irritating hardware right hip. At this point patient has failed conservative treatment measures and has opted to proceed with a elective right total hip arthroplasty. Hospital course: Details of patient's surgery can be found in operative report. Patient tolerated the procedure well and was subsequently transported to orthopedic floor. Patient's orthopeidc and medical care was provided daily. Amos lewis had daily laboratory tests performed for evaluation of overall blood counts. Patient had daily physical therapy to include strengthening range of motion as well as education with walker ambulation. Patient was treated with Xarelto for their postoperative DVT prophylaxis during their inpatient stay. Patient was noted to have a relatively uneventful postoperative course. Patient reported satisfactory pain control with oral pain medications by postoperative day . Patient showed satisfactory progress with physical therapy. Patient moved steadily through the program and had no difficulty meeting the goals by postoperative day 1. Given patient's otherwise satisfactory course and having met physical therapy goals, plan is to discharge patient home with health services on postoperative day 1. Discharge condition/disposition: Patient will be discharged home in stable condition. Discharge medications: Instructions are given on resumption of patient's normal daily medications per primary care recommendation, in addition patient will be prescribed tramadol; Colace; Xarelto. Discharge instructions: 1. Wound care and infection precautions, keep incision dry and covered while showering, no lotions, creams, moisturizers. No soaking, tubs, pools, hottubs. Do not scrub over the incision. 2. Weight-bear as tolerated with walker / cane until follow-up. 3. Ice and elevate when necessary. Do not exceed 20 minutes per hour with ice pack. 4. Utilize compression sleeve until seen at first follow up appointment. 5. Visiting nursing care. 6. Home physical therapy. 7. Pain meds and anticoagulants per prescription. 8. Pain medication has potential to cause constipation. Increase oral fluid and fiber intake. Contact primary care provider if you have not had a bowel movement within 48 hours after discharge 9. No anti-inflammatory medication until discussed at first post operative visit, this including Motrin, Aleve, Mobic, Diclofenac. 10. Follow up in office at 2 weeks postop with Balwinder Craig PA-C / Bo Cisneros PA-C 11. Follow up with your primary care doctor 7-10 days after discharge. 12. Contact [facility] with any questions, . Keep incision clean, dry, intact. Keep mesh tape on until follow-up appointment in office in 2 weeks. While showering, cover mesh tape with Saran wrap. Medications: Tramadol; Xarelto 10 mg daily 30 days; Colace Assessment: Right hip severe osteoarthrosis/irritating hardware right hip Procedures: Right total hip arthroplastypress-fit/removal intramedullary nail right proximal femur Patient Condition at Discharge: Good Plan - Discharge Summary Discharge Rx Participant: Yes New Discharge Prescriptions: No Action Gabapentin [Neurontin] 100 mg PO HS Glatiramer Acetate [Copaxone] 40 mg SQ MOWEFR Baclofen [Lioresal] 10 mg PO DAILY PRN PRN Reason: restless leg Ascorbic Acid [Vitamin C] 1,000 mg PO DAILY Ubidecarenone [Co Q-10] 300 mg PO DAILY [place]-3 Fatty Acids/Fish Oil [Fish Oil 1,000 mg Softgel] 1 each PO DAILY Multivit-Min/Iron/Folic/Lutein [Centrum Silver Women Tablet] 1 each PO DAILY Glucosamine/Chondr Dinh A Sod [Osteo Bi-Flex Caplet] 1 each PO DAILY DULoxetine HCL [Cymbalta] 60 mg PO HS Simvastatin [Zocor] 20 mg PO HS Meclizine [Antivert] 12.5 mg PO DAILY Fluticasone Nasal [place] [Flonase Nasal [place]] 1 spray EA NOSTRIL DAILY PRN PRN Reason: allergies Ibuprofen [Motrin] 400 mg PO Q6HR PRN PRN Reason: Pain Turmeric Root Extract [Turmeric] 1,000 mg PO DAILY L.acidoph,Paracasei, B.lactis [Probiotic] 1 tab PO DAILY Aspirin 81 mg PO DAILY Discharge Medication List Gabapentin [Neurontin] 100 mg PO HS 06/15/16 [History] Glatiramer Acetate [Copaxone] 40 mg SQ MOWEFR 06/15/16 [History] Ascorbic Acid [Vitamin C] 1,000 mg PO DAILY 06/20/17 [History] Baclofen [Lioresal] 10 mg PO DAILY PRN 06/20/17 [History] Glucosamine/Chondr Dinh A Sod [Osteo Bi-Flex Caplet] 1 each PO DAILY 06/20/17 [History] Multivit-Min/Iron/Folic/Lutein [Centrum Silver Women Tablet] 1 each PO DAILY 06/20/17 [History] [place]-3 Fatty Acids/Fish Oil [Fish Oil 1,000 mg Softgel] 1 each PO DAILY 06/20/17 [History] Ubidecarenone [Co Q-10] 300 mg PO DAILY 06/20/17 [History] Aspirin 81 mg PO DAILY 08/14/20 [History] DULoxetine HCL [Cymbalta] 60 mg PO HS 08/14/20 [History] Simvastatin [Zocor] 20 mg PO HS 08/14/20 [History] Fluticasone Nasal [place] [Flonase Nasal [place]] 1 spray EA NOSTRIL DAILY PRN 09/01/20 [History] Meclizine [Antivert] 12.5 mg PO DAILY 09/01/20 [History] Ibuprofen [Motrin] 400 mg PO Q6HR PRN 06/28/21 [History] L.acidoph,Paracasei, B.lactis [Probiotic] 1 tab PO DAILY 06/28/21 [History] Turmeric Root Extract [Turmeric] 1,000 mg PO DAILY 06/28/21 [History] Follow up Appointment(s)/Referral(s): Bo Cisneros PAC [PHYSICIAN COPY EDITOR] - 07/19/21 9:40 am Fritz Ruby MD [Primary Care Provider] - 07/11/21 10:30 am (APPT AT [address] [place], [place] [id number]) Patient Instructions/Handouts: Total Hip Replacement (DC) Activity/Diet/Wound Care/Special Instructions: Discharge instructions: 1. Wound care and infection precautions, keep incision dry and covered while showering, no lotions, creams, moisturizers. No soaking, tubs, pools, hottubs. Do not scrub over the incision. 2. Weight-bear as tolerated with walker / cane until follow-up. 3. Ice and elevate when necessary. Do not exceed 20 minutes per hour with ice pack. 4. Utilize compression sleeve until seen at first follow up appointment. 5. Visiting nursing care. 6. Home physical therapy. 7. Pain meds and anticoagulants per prescription. 8. Pain medication has potential to cause constipation. Increase oral fluid and fiber intake. Contact primary care provider if you have not had a bowel movement within 48 hours after discharge 9. No anti-inflammatory medication until discussed at first post operative visit, this including Motrin, Aleve, Mobic, Diclofenac. 10. Follow up in office at 2 weeks postop with Balwinder Craig PA-C / Bo Cisneros PA-C 11. Follow up with your primary care doctor 7-10 days after discharge. 12. Contact [facility] with any questions, . Keep incision clean, dry, intact. Keep mesh tape on until follow-up appointment in office in 2 weeks. While showering, cover mesh tape with Saran wrap. Medications: Tramadol; Xarelto 10 mg daily 30 days; Colace Discharge Disposition: HOME WITH HOME HEALTH SERVICES
--- NOTE | 2021-07-04 11:33 | P.CONS ---
History of Present Illness - Reason for Consult Consult date: 07/04/21 Medical management ongoing nicotine dependence, COPD Requesting physician: Joseph Jones - Chief Complaint Right hip severe osteoarthritis, status post right total hip arthroplasty - History of Present Illness This is 71-year-old female admitted with right hip severe osteoarthritis, irritating hardware right hip ,status post right total hip nfpaduqjycwi-sszhi-wol/removal intramedullary nail right proximal femur, in a patient with past medical history of postop nausea and vomiting, migraines, COPD, ongoing nicotine dependence, Lyme disease and multiple other medical issues. Tolerated procedure well this morning patient has been up with physical therapy, completed stairs, tolerated exertion well. Denies lightheadedness, dizziness or focal deficits. Denies chest pain, palpitations or shortness of breath. Vital signs stable, afebrile, normal WBC. Hemoglobin 8.2, platelets 255. Passing flatus. Pain controlled.Good diet intake with no nausea vomiting or diarrhea. Review of Systems Constitutional: Denied any fatigue denied any fever. Cardio vascular: denied any chest pain, palpitations Gastrointestinal denied any nausea vomiting Pulmonary: Denied any shortness of breath cough Neurologic denied any new focal deficits ROS Statement: Those systems with pertinent positive or pertinent negative responses have been documented in the HPI. ROS Other: All systems not noted in ROS Statement are negative. Past Medical History Past Medical History: Cancer, COPD, Hyperlipidemia, Neurologic Disorder, Osteoarthritis (OA) Additional Past Medical History / Comment(s): lyme disease, ms, hx migraines, occ palpitations, "mild' COPD, skin cancer, hx. right hip fx 2018, this surg. was rescheduled from may. d/t taking care of after a surg. History of Any Multi-Drug Resistant Organisms: C-DIFF Year Discovered:: 10/24/2016 MDRO Source:: Stool Past Surgical History: Joint Replacement, Orthopedic Surgery Additional Past Surgical History / Comment(s): Ovarian cyst removal, 2 rods inserted rt femur(Fx), closed reduction w/nailing right hip fx., ganglion cyst removed left knee, Past Anesthesia/Blood Transfusion Reactions: Motion Sickness, Postoperative Nausea & Vomiting (PONV) Past Psychological History: No Psychological Hx Reported Smoking Status: Current every day smoker Past Alcohol Use History: None Reported Additional Past Alcohol Use History / Comment(s): started smoking at age 40, <1 ppd Past Drug Use History: None Reported - Past Family History Mother Family Medical History: No Reported History Medications and Allergies Home Medications Medication Instructions Recorded Confirmed Type Gabapentin [Neurontin] 100 mg PO HS 06/15/16 07/03/21 History Glatiramer Acetate [Copaxone] 40 mg SQ MOWEFR 06/15/16 07/03/21 History Ascorbic Acid [Vitamin C] 1,000 mg PO DAILY 06/20/17 07/03/21 History Baclofen [Lioresal] 10 mg PO DAILY PRN 06/20/17 07/03/21 History Glucosamine/Chondr Dinh A Sod [Osteo 1 each PO DAILY 06/20/17 07/03/21 History Bi-Flex Caplet] Multivit-Min/Iron/Folic/Lutein 1 each PO DAILY 06/20/17 07/03/21 History [Centrum Silver Women Tablet] [place]-3 Fatty Acids/Fish Oil [Fish 1 each PO DAILY 06/20/17 07/03/21 History Oil 1,000 mg Softgel] Ubidecarenone [Co Q-10] 300 mg PO DAILY 06/20/17 07/03/21 History DULoxetine HCL [Cymbalta] 60 mg PO HS 08/14/20 07/03/21 History Simvastatin [Zocor] 20 mg PO HS 08/14/20 07/03/21 History Fluticasone Nasal [place] [Flonase 1 spray EA NOSTRIL DAILY PRN 09/01/20 07/03/21 History Nasal [place]] Meclizine [Antivert] 12.5 mg PO DAILY 09/01/20 07/03/21 History Ibuprofen [Motrin] 400 mg PO Q6HR PRN 06/28/21 07/03/21 History L.acidoph,Paracasei, B.lactis 1 tab PO DAILY 06/28/21 07/03/21 History [Probiotic] Turmeric Root Extract [Turmeric] 1,000 mg PO DAILY 06/28/21 07/03/21 History Docusate [Colace] 100 mg PO DAILY #30 capsule 07/04/21 Rx Rivaroxaban [Xarelto] 10 mg PO DAILY #30 tab 07/04/21 Rx traMADol HCl [Ultram] 50 mg PO Q6H PRN #36 tab 07/04/21 Rx Allergies Allergy/AdvReac Type Severity Reaction Status Date / Time cefuroxime AdvReac Diarrhea Verified 07/03/21 06:36 morphine AdvReac extreme Verified 07/03/21 06:36 hallucinations Sulfa (Sulfonamide AdvReac Vomiting Verified 07/03/21 06:36 Antibiotics) Physical Exam Vitals: Vital Signs Temp Pulse Pulse Resp BP Pulse Ox 07/04/21 09:17 18 07/04/21 07:15 98.6 F 90 17 91/54 99 07/04/21 02:08 97.8 F 75 17 130/54 95 07/03/21 20:00 86 18 07/03/21 19:26 98.0 F 101 H 16 123/65 96 07/03/21 14:50 97.7 F 86 18 105/56 96 07/03/21 13:00 88 16 98/56 96 07/03/21 12:30 88 16 95/52 96 07/03/21 12:01 84 16 94/50 94 L 07/03/21 11:30 89 16 114/57 98 07/03/21 11:00 79 16 132/56 96 07/03/21 10:46 75 16 142/66 100 07/03/21 10:31 75 16 142/58 100 07/03/21 10:22 72 16 145/65 100 Intake and Output 07/03/21 07/04/21 07/04/21 22:59 06:59 14:59 Intake Total 1080 250 Balance 1080 250 Intake: Oral 1080 250 Other: # Voids 2 2 2 # Bowel Movements 0 0 Weight 57.2 kg PHYSICAL EXAM: VITAL SIGNS: [As above] GENERAL: Sitting up in a chair, no acute distress HEENT: Conjunctivae normal. eyes normal. mmm. NECK: No JVD. No thyroid enlargement. No LNs CARDIOVASCULAR: S1, S2 regular. No murmur. RESPIRATION: Breath sounds diminished in the bases. No rhonchi or crackles. No bronchial breathing. ABDOMEN: Soft, nontender . No guarding. no masses palpable. No ascites, No hepatosplenomegaly.Bowel sounds heard. LEGS: Right hip dressing clean dry and intact, mild edema, no calf pain or tenderness. Positive DP pulse. PSYCHIATRY: Alert and oriented X3, mood and affect normal. NERVOUS SYSTEM: Cranial N 2-12 grossly normal. Moves all 4 limbs. No focal deficits. Strength and sensation grossly intact. Skin: Warm and dry, no rash Results CBC & Chem 7: 07/04/21 07:57 Labs: Abnormal Lab Results - Last 24 Hours (Table) 07/04/21 Range/Units 07:57 RBC 2.61 L (3.80-5.40) m/uL Hgb 8.2 L (11.4-16.0) gm/dL Hct 26.0 L (34.0-46.0) % Neutrophils # 8.1 H (1.3-7.7) k/uL Assessment and Plan Assessment: Right hip severe osteoarthrosis/irritating hardware right hip - surgery performed yesterday, 07/03/2021 - Right total hip arthroplastypress-fit/removal intramedullary nail right proximal femur. Postoperative anemia, mild, expected outcome. Follow-up CBC outpatient. History of PONV Ongoing nicotine dependence COPD, stable Osteoarthritis Plan: Continue on current medication regime ,monitoring and symptomatic treatment. Pain management and DVT prophylaxis as per orthopedic surgery. PPI for GI prophylaxis. Aggressive pulmonary toileting with incentive spirometer reinforced. Discharge planning in progress for today as per primary. Smoking cessation reinforced .Follow-up with PCP in [address] Urias for the consult. The impression and plan of care has been dictated as directed. : I performed a history and examination of this patient, discussed the same with the dictator. I agree with the dictator's note ,documented as a scribe. Any additional findings or plans will be noted.
--- NOTE | 2021-07-11 08:06 | CDI ---
Documentation Clarification Form Date: 07/11/2021 07:05:00 AM From: Bijal Condon Admit Date: 07/03/2021 05:59:00 AM Patient Name: Montserrat Maradiaga Visit Number: [id number] Discharge Date: 07/04/2021 01:16:00 PM ATTENTION: The Clinical Documentation Specialists (CDI) and [facility] Coding Staff appreciate your assistance in clarifying documentation. Please respond to the clarification below the line at the bottom and electronically sign. The CDI & [facility] Coding staff will review the response and follow-up if needed. Please note: Queries are made part of the Legal Health Record. If you have any questions, please contact the author of this message via ITS. Dr. Fritz Ruby, Postoperative anemia, mild, expected outcome is documented in your consult. Additional specificity regarding the [type, acuity] of anemia is requested. History/Risk Factors: MS, COPD, HLD, smoker Clinical indicators: Hemoglobin: 8.2 Hematocrit: 26.0 EBL: per anesthesia record EBL was 200 ml Treatment: per anesthesia record crystaloid 1300 ml Please clarify the type and acuity of anemia: [ ] Acute blood loss anemia [ ] Acute on chronic blood loss anemia [ ] Chronic blood loss anemia [ ] Iron deficiency anemia [ ] Unable to determine [ ] Other, please specify Acute blood loss anemia MTDD
== END 2021-07-04 13:16 | disposition home health service (06) | DRG 467 ==
LOC: 2ORMAIN 05:59 → 4SSUR 13:19
PROVIDERS: ADMIT Orthopaedic Surgery; ATTEND Orthopaedic Surgery
PROC: 0SP90JZ Removal of Synthetic Substitute from Right Hip Joint, Open Approach (ICD-10-PCS; principal; 2021-07-03 07:45)
PROC: 0SR902A Replacement of Right Hip Joint with Metal on Polyethylene Synthetic Substitute, Uncemented, Open Approach (ICD-10-PCS; principal; 2021-07-03 07:45)
DX: T84.84XA Pain due to internal orthopedic prosthetic devices, implants and grafts, initial encounter (principal); D62 Acute posthemorrhagic anemia; M16.11 Unilateral primary osteoarthritis, right hip; J44.9 Chronic obstructive pulmonary disease, unspecified; G35 Multiple sclerosis; E78.5 Hyperlipidemia, unspecified; F17.210 Nicotine dependence, cigarettes, uncomplicated; Z71.6 Tobacco abuse counseling; Z79.01 Long term (current) use of anticoagulants; Z79.899 Other long term (current) drug therapy; Z87.81 Personal history of (healed) traumatic fracture; Z87.42 Personal history of other diseases of the female genital tract; Z87.39 Personal history of other diseases of the musculoskeletal system and connective tissue; Z85.828 Personal history of other malignant neoplasm of skin; Z86.19 Personal history of other infectious and parasitic diseases; Z86.69 Personal history of other diseases of the nervous system and sense organs; Z88.1 Allergy status to other antibiotic agents; Z88.5 Allergy status to narcotic agent; Z88.2 Allergy status to sulfonamides; Z98.890 Other specified postprocedural states; Z83.79 Family history of other diseases of the digestive system; Y83.2 Surgical operation with anastomosis, bypass or graft as the cause of abnormal reaction of the patient, or of later complication, without mention of misadventure at the time of the procedure
CPT/HCPCS: 73501; 85025; 86850; 86900; 86901; 88300

== ENCOUNTER → 2022-01-10 | Outpatient (CLI) | payer MEDICARE ==
--- NOTE | 2022-01-11 05:34 | MR ---
EXAMINATION TYPE: MR angio head wo con DATE OF EXAM: 01/10/2022 COMPARISON: 04/18/2016 HISTORY: FAMILY HISTORY CEREBRAL ANEURYSM MR angiographic images were obtained of the intracerebral arterial circulation. There is arterial flow in the vertebrobasilar artery system. There is arterial flow in the distal int ernal carotid arteries bilaterally. There is arterial flow in the anterior middle and posterior cereb ral arteries bilaterally. No evidence of intracranial hemodynamic arterial stenosis. No mass effect. No evidence of intracranial aneurysm. IMPRESSION: Normal MR angiogram of the brain. No change compared to old exam.
== END | disposition home or self-care (01) ==
LOC: RADMRIMAIN 15:45
PROVIDERS: ATTEND Psychiatry & Neurology Neurology
DX: Z82.49 Family history of ischemic heart disease and other diseases of the circulatory system (principal)
CPT/HCPCS: 70544

== ENCOUNTER → 2022-03-19 | Outpatient (CLI) | payer MEDICARE ==
--- NOTE | 2022-03-19 11:30 | CTL ---
EXAMINATION TYPE: CT Low Dose Lung DATE OF EXAM ORDERED: 03/19/2022 HISTORY: 71-year-old female Z87.891, personal history nicotine dependence. Current smoker, 37.5 pack- year history of smoking. Lung cancer screening CT DLP: 40.[address] CTDI: 1.1 mGy Automated exposure control for dose reduction was used. SCREENING VISIT: Annual follow-up COMPARISON: 02/22/2021 TECHNIQUE: Low dose computed tomography scan was performed through the chest with coronal and sagitta l reconstructions. CT DIAGNOSTIC QUALITY: Satisfactory FINDINGS: Heart normal size without pericardial effusion. LAD and scattered RCA coronary artery calcifications are present. 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 Conventional arch vessel branching an atomy. Borderline ectatic lower descending thoracic aorta at 2.5 cm. No thoracic lymphadenopathy by CT size criteria. 3 mm right mid lung pulmonary nodule, axial image 109, unchanged. 3 mm right lower lobe pulmonary nodule, axial image 190, not clearly seen previously. Stable 5 mm lateral right midlung pulmonary nodule, axial image 138. Stable 3 mm pulmonary nodule right mid lung along the major fissure suggesting an intrafissural lymph node, axial image 140. Minimal biapical pleural-parenchymal scarring. Minimal emphysematous change. No consolidation or pleu ral effusion. Visualized upper abdomen shows no gross abnormality. Bones: Accentuated lower thoracic kyphosis. Superior endplate Schmorl's nodes lower thoracic spine. O steopenia. No osseous destructive process. IMPRESSION: 1. LungRADS Category 2 (benign appearance or behavior, <1% chance of malignancy); a few scattered pul monary nodules measuring up to 5 mm. One 3 mm pulmonary nodule in the right lower lobe was not well s een previously. This qualifies for lung RADS category 2. 2. Minimal emphysematous change. Recommend smoking cessation. 3. 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 Previously measuring 4.[address] LUNG RAD AND CT CHEST RECOMMENDATION: Lung-Rad 2 Benign Appearance or Behavior: Continue annual sc reening with LDCT in 12 months. S Modifier (other clinically significant findings): S, recommend appropriate surveillance for the asc ending aortic aneurysm.
== END | disposition home or self-care (01) ==
LOC: RADCTMAIN 09:18
PROVIDERS: ATTEND Family Medicine
DX: Z12.2 Encounter for screening for malignant neoplasm of respiratory organs (principal); I71.21 Aneurysm of the ascending aorta, without rupture; R91.8 Other nonspecific abnormal finding of lung field; Z87.891 Personal history of nicotine dependence
CPT/HCPCS: 71271

== ENCOUNTER → 2023-03-20 | Outpatient (CLI) | payer MEDICARE ==
[2023-03-20 14:23] LABS: African American GFR (CKD) 76 (>60 ml/min/1.73 sqM); Blood Urea Nitrogen 21 mg/dL (7-17); Non-African American GFR(CKD) 66 (>60 ml/min/1.73 sqM)
--- NOTE | 2023-03-21 11:00 | CT ---
EXAMINATION TYPE: CT angio chest DATE OF EXAM: 03/20/2023 COMPARISON: None HISTORY: Monitoring thoracic aneurysm x [address] DLP: 599 mGycm CONTRAST: CTA thoracic aorta with 3-D reconstruction is performed and without and with IV Contrast, patient inj ected with 65 cc mL of Isovue 370. Contrast CTA of the thoracic aorta was performed from the lung apex through the upper abdomen. 3D re construction imaging obtained at a separate workstation. CT Chest: THORACIC AORTA: No evidence for thoracic aortic aneurysm. Ascending thoracic aorta measures 3.7 cm AP dimension which is less than 4 cm which is considered aneurysmal. Mild atheromatous changes seen. T here is no evidence for dissection or periaortic collection. LUNGS: The lungs are clear and free of infiltrate or atelectasis. No pulmonary nodule or mass is det ected. No pleural effusion or CT evidence of interstitial lung disease. MEDIASTINUM: No evidence for mediastinal hematoma. The heart is not enlarged. No evidence for med iastinal mass or adenopathy. HILAR STRUCTURES: No evidence for mass. No hilar adenopathy is appreciated. OTHER: No significant abnormality. IMPRESSION- No evidence for ascending thoracic aortic aneurysm at this time or complicating factor such as dissec tion.
== END | disposition home or self-care (01) ==
LOC: RADCTMAIN 13:34
PROVIDERS: ATTEND Thoracic Surgery (Cardiothoracic Vascular Surgery)
DX: I71.20 Thoracic aortic aneurysm, without rupture, unspecified (principal)
CPT/HCPCS: 82565; 84520; 71275; 36415; Q9967

== ENCOUNTER → 2023-11-20 | Outpatient (CLI) | payer MEDICARE | END | disposition home or self-care (01) | LOC: LABPRL 10:10 | PROVIDERS: ATTEND Psychiatry & Neurology Neurology | DX: G35 Multiple sclerosis | CPT/HCPCS: 82306; 82607 ==

== ENCOUNTER → 2024-02-18 | Outpatient (CLI) | payer MEDICARE ==
[~2024-02-18] MED LIST changes: -ACETAMINOPHEN TAB 500 MG TAB PO PRN; +AMINOPHYLLINE 500 MG/20 ML VIAL IV ONE; -MELOXICAM 7.5 MG TAB PO PRN; +REGADENOSON 0.4 MG/5 ML SYRINGE IV PRN; -TRANEXAMIC ACID IN NACL,ISO-OS 1,000 MG in SALINE 1 100ML.BAG IVPB PRN
--- NOTE | 2024-02-18 10:44 | CA ---
Lexiscan Nuclear Stress Test Report Name: Montserrat Maradiaga Exam Date: 02/18/2024 09:31 Exam Location: [facility] Stress Ht (in): 65 Wt (lb): 120 BSA: 1.59 Ordering Phys: Fritz Ruby MD Referring Phys: SAUL,, Technologist: DEEP,, Age: 73 Gender: F : 1950 Procedure CPT: Indications: R07.9 CHEST PAIN I71.20 ICD-10 Codes: Patient History: Chest pain, palpitations and sycope Medications: Meds past 24 hrs: Pretest Chest Pain: STRESS TEST Lexiscan Protocol Exercise Duration (min:sec): 01:[address] Depressions (mm): Angina Score: Olea Score: Resting HR (bpm): 76 Peak HR (bpm): 109 Resting BP (mmHg): 141 / 83 Peak BP (mmHg): 147 / 82 MPHR: 147 Target HR: 125 % MPHR: 74 METS: 1.0 Total Dose: Peak Dose: Atropine: Double Product: 39555 BP Response: Stress Termination: INFUSION COMPLETE Stress Symptoms: HEAVINESS,HEADACHE Stress Summary: ECG ANALYSIS Resting ECG: Normal sinus rhythm normal axis normal intervals Stress ECG: Patient was given intravenous Lexiscan as a protocol did not have chest pain or diagnostic ST segment depression CONCLUSIONS Negative stress test by EKG criteria Cardiolite portion of the stress test will be reported separately Dr. Steve Garcia MD (Electronically Signed) Final Date: 18 February 2024 10:43
--- NOTE | 2024-02-18 13:21 | NM ---
EXAMINATION TYPE: NM stress lexiscan cardiolite DATE OF EXAM: 02/18/2024 COMPARISON: NONE CLINICAL INDICATION: Female, 73 years old with history of R07.9 CHEST PAIN I71.20; TECHNIQUE: After the intravenous administration of 8.2 mCi Tc 99m Sestamibi - Cardiolite resting SPE CT images acquired 45 minutes post injection. The patient received 0.4mg Lexiscan, 26.0 mCi Tc 99m Sestamibi - Stress images obtained [address] injection FINDINGS: Review of stress and rest SPECT images demonstrates no distinct perfusion abnormality. Gated analysi s shows normal wall motion with an estimated left ventricular ejection fraction of 75 %. IMPRESSION: No scintigraphic evidence for reversible ischemia. [facility], , 02/18/2024 1:19 PM
== END | disposition home or self-care (01) ==
LOC: RADNMMAIN 07:41
PROVIDERS: ATTEND Family Medicine
DX: I71.20 Thoracic aortic aneurysm, without rupture, unspecified (principal); R07.9 Chest pain, unspecified
CPT/HCPCS: 93017; 78452; A9500; J2785

== ENCOUNTER → 2024-02-20 | Outpatient (CLI) | payer MEDICARE ==
--- NOTE | 2024-02-22 12:09 | MR ---
EXAMINATION TYPE: MR brain wo/w con DATE OF EXAM: 02/20/2024 5:13 PM COMPARISON: 01/10/2022.01/21/2018 CLINICAL INDICATION: Female, 73 years old with history of G35 MULTIPLE SCLEROSIS; , MS x40 years TECHNIQUE: Multi planar, multi sequence imaging was performed through the brain including: T1, T2, In version recovery, susceptibility weighted imaging and gradient echo imaging and Diffusion weighted im aging. The patient was then given intravenous contrast and multi planar, T1 fat-saturation images wer e obtained. IV Contrast: 5.5 mL Gadavist FINDINGS: The schmitt-white junctions, ventricular system, basal cisterns appear unremarkable. Diffusion-weighted imaging shows no evidence of restricted diffusion to suggest acute/subacute infarct. Intracranial ar terial flow voids are maintained. Midline structures show no abnormality. Scattered foci of high T2 s ignal intensity are seen within the periventricular white matter. These lesions are thought to be sim ilar to fractionally larger in size compared to 01/21/2018 given differences in slice selection. No e vidence for active demyelination. The susceptibility weighted images do not reveal any evidence for m icro-hemorrhage. After administration of gadolinium, no abnormal enhancement is seen. Blooming artifa ct within the right frontal parietal region compatible with developmental venous anomaly. The bone marrow signal is within normal limits. Paranasal sinuses and mastoid air cells: No significant paranasal sinus disease. Visualized orbits: Orbital contents are intact. IMPRESSION: 1. No evidence of intracranial mass, acute/subacute infarct, or abnormal enhancement. 2. Nonspecific white matter changes, abdominal venous anomaly. No evidence for active demyelination. Majority of the lesions are stable in size a few are more prominent/may be marginally larger given di fferences in slice selection. 3. 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
== END | disposition home or self-care (01) ==
LOC: RADMRIMAIN 16:02
PROVIDERS: ATTEND Psychiatry & Neurology Neurology
DX: G35 Multiple sclerosis (principal); R90.82 White matter disease, unspecified
CPT/HCPCS: 70553; A9585

== ENCOUNTER → 2024-03-22 | Outpatient (CLI) | payer MEDICARE ==
--- NOTE | 2024-03-22 11:15 | CTL ---
EXAMINATION TYPE: CT Low Dose Lung DATE OF EXAM ORDERED: 03/22/2024 COMPARISON: 03/19/2022 CLINICAL INDICATION: Female, 73 years old with history of F17.210 nicotine dependence; PHH, CURRENT S MOKER. PT STATED .75 PACKS A DAY FOR 30 YEARS, ABOUT 22.5 PACKS A YEAR, Lung cancer screening, Histor y of Smoking/tobacco use. TECHNIQUE: Low dose computed tomography scan was performed through the chest at 1 mm thick sections a nd reconstructed images in multiple planes at 1 mm and [address] DLP: 57.[address] CTDI: 1.6 mGy Automated exposure control for dose reduction was used. CT DIAGNOSTIC QUALITY: Satisfactory FINDINGS: Heart normal size without pericardial effusion. LAD and scattered RCA coronary artery calci fications are present. 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 [facility] vessel branching anatomy. Borderline ectatic lower descending thoracic aorta at 2.5 cm. No thoracic lymphadenopathy by CT size criteria. 3 mm right mid lung pulmonary nodule, unchanged. 3 mm right lower lobe pulmonary nodule, stable. Stable 5 mm lateral right midlung pulmonary nodule, stable Stable 3 mm pulmonary nodule right mid lung along the major fissure suggesting an intrafissural lymph node, axial stable. Additional bilateral pleural thickening and subpleural nodularity is stable and has a benign appearan ce. There is bronchiectasis. On axial image 193 there is a soft tissue 5 mm nodule within the bronchus ma y be related to area of mucous plugging. Additional nodules are seen within the proximal bronchi bila terally. Most likely related to retained secretion. Minimal biapical pleural-parenchymal scarring. Minimal emphysematous change. No consolidation or pleu ral effusion. Visualized upper abdomen shows no gross abnormality. Bilateral adrenal thickening nonsp ecific but most typical of benign adenoma or hyperplasia. Bones: Accentuated lower thoracic kyphosis. Superior endplate Schmorl's nodes lower thoracic spine. O steopenia. No osseous destructive process. IMPRESSION: 1. COPD with stable appearing bilateral pulmonary nodules. 2. There is a soft tissue density within the within the bilateral bronchi possibly related to retaine d secretion or mucous plug. Recommend a 3 month follow-up CT scan for confirmation. CT LUNG RAD AND CT CHEST RECOMMENDATION: Lung-Rad 4A Suspicious: Follow-up 3 month LDCT or PET/CT may be used when there is a > 8 mm solid component. [facility], , 03/22/2024 11:13 AM
--- NOTE | 2024-03-22 22:33 | MM ---
Reason for Exam: Screening (asymptomatic). Last screening mammogram was performed 12 month(s) ago. Patient History: Menarche at age 14. First Full-Term at age 19. Postmenopausal. Patient used Hormonal Contraceptives for 1 year. Risk Values: Karen 5 year model risk: 1.2%. NCI Lifetime model risk: 2.9%. Prior Study Comparison: 01/26/2021 Bilateral MG 3D screening mammo w/cad, [facility]. 02/28/2022 Bilateral MG 3D screening mammo w/cad, [facility]. 03/19/2023 Bilateral MG 3D screening mammo w/cad, [facility]. Tissue Density: The breasts are heterogeneously dense, which may obscure small masses. Findings: Analyzed By CAD. The pattern is symmetrical. No significant interval change No suspicious groups of microcalcifications, spiculated or lobular masses, architectural distortion or other secondary signs of malignancy are mammographically apparent. Overall Assessment: Benign, BI-RAD 2 Management: Screening Mammogram of both breasts in 1 year. A negative mammogram report should not preclude additional follow up of suspicious palpable abnormalities. Patient should continue monthly self breast exam. A clinical breast exam by your physician is recommended on an annual basis and results should be correlated with mammographic findings. Note on Karen scores and lifetime risk: 1. A Karen score greater than 3% is considered moderate risk. If this is the case, consider specialist referral to assess eligibility for a risk reducing agent. 2. If overall lifetime risk for the development of breast cancer is 20% or higher, the patient may qualify for future screening with alternating mammogram and breast MRI. [facility], , 03/22/2024 10:30 PM. Electronically signed and approved by: Rudi Lama D.O. Radiologis
== END | disposition home or self-care (01) ==
LOC: RADMAMWWP 10:01
PROVIDERS: ATTEND Family Medicine
DX: Z12.31 Encounter for screening mammogram for malignant neoplasm of breast (principal); Z12.2 Encounter for screening for malignant neoplasm of respiratory organs; J44.9 Chronic obstructive pulmonary disease, unspecified; Z78.0 Asymptomatic menopausal state; R92.333 Mammographic heterogeneous density, bilateral breasts; F17.210 Nicotine dependence, cigarettes, uncomplicated; M40.294 Other kyphosis, thoracic region
CPT/HCPCS: 71271; 77063; 77067

== ENCOUNTER → 2024-06-25 | Outpatient (CLI) | payer MEDICARE ==
[2024-06-25 10:09] LABS: African American GFR (CKD) 83 (>60 ml/min/1.73 sqM); Blood Urea Nitrogen 22 mg/dL (7-17); Non-African American GFR(CKD) 72 (>60 ml/min/1.73 sqM)
--- NOTE | 2024-06-25 13:59 | CT ---
EXAMINATION TYPE: CT chest w con DATE OF EXAM: 06/25/2024 10:54 AM COMPARISON: 03/20/2023 03/22/2024 CLINICAL INDICATION: Female, 74 years old with history of J43.9 emphysema; PHH, Emphysema, shortness of breath TECHNIQUE: Multiple axial images were obtained through the chest. Sagittal and reformats were created for review. MIP was performed on a separate workstation. Contrast used:100 ml mL of Isovue 300 with IV Contrast (None if empty) Oral contrast used: (None if empty) CT DLP: 267 mGycm, Automated exposure control for dose reduction was used. FINDINGS: LUNGS/ PLEURA: No focal consolidation, pneumothorax or pleural effusion. AIRWAY: Patent and unremarkable. Retained secretions without the abdomen present on prior no suspicio us airway mass. HEART: Size within normal limits. Mild coronary artery calcifications present. MEDIASTINUM: No gross evidence of adenopathy. VASCULATURE: No aortic aneurysm. MUSCULOSKELETAL: Moderate disc degeneration changes are present throughout the thoracolumbar spine se condary to osteophyte formation and facet joint arthropathy. SOFT TISSUES/LYMPH NODES: Unremarkable. LOWER NECK: No significant findings. UPPER ABDOMEN: No significant findings. IMPRESSION: 1. Soft tissue prominence in the right main bronchi thought to represent prior retained secretion No evidence for acute process. 2. Mild emphysema. [facility], , 06/25/2024 1:56 PM
== END | disposition home or self-care (01) ==
LOC: RADCTMAIN 09:20
PROVIDERS: ATTEND Family Medicine
DX: J43.9 Emphysema, unspecified (principal)
CPT/HCPCS: 82565; 84520; 71260; 36415; Q9967